=== PATIENT | female | born 1965 | race African-American/Black ===

== ENCOUNTER 2024-09-27 09:50 | Outpatient (AMB) | payer OTHER, SELFPAY ==
--- NOTE | 2024-09-27 10:12 | HO.SPINEOV ---
Vital Signs 09/27/24 10:20 Height 5 ft 3 in Weight 161 lb BMI 28.5 Intake Visit Reasons: spinal stenosis/second opinion Intake Note: Ms. Donaldson is here today c/o severe back pain that radiates down to the toes causing numbness and tingling. 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 She is a very nice 58-year-old diabetic female presents to the office today for evaluation of a low back pain and left lower extremity radiculopathy which she states started about 6 months ago. She this followed by Dr. Aguayo at [facility] for grade 1 spondylolisthesis with severe central canal stenosis, was offered L4-5 decompression with pedicle screw fixation but the patient wanted to get another opinion as to what would be the best way to proceed. She tells me that the symptoms started 6 months ago when she was leaning forward to lift something and felt a pop. For a day or so she had back pain and then it began radiating down her left leg. The pain starts in the low back, centralized paraspinal region goes down into her left posterolateral thigh, lateral calf and into the top of her foot. She describes a diffuse numbness in her left leg. The pain is aggravated with standing walking but she is also having a lot of difficulty sleeping. She has been taking gabapentin, Tylenol, muscle relaxers for many months. She underwent physical therapy but that only made it worse. She tried a cortisone injection at [facility] but that did not give her any relief, not even briefly. The pain has gotten to a point now where it is becoming incapacitating. She also reports that she has been having pain on her left breast, getting numbness of her left hand and has been noticing her gait is been more unsteady lately. She feels as though there might be a vertigo like symptom where she is having trouble steady on her feet. No cauda equina symptoms. PMH: She is diabetic, her A1c is generally very good, she did have an episode of DKA last year related to a urinary tract infection and sepsis.of 3 C sections. Denies any history of heart disease, strokes, bleeding disorders, liver disease, kidney disease. Social hx: She does not smoke, drink or use any recreational drugs Medications: Lantus, lispro sliding scale, gabapentin, tizanidine, Tylenol, metformin Allergies: None Physical exam: She is uncomfortable, she can stand on her own and walk in the hallways, but she has unsteady with tandem gait testing. Motor exam reveals a slight weakness of her left hand as well as her left iliopsoas muscle group. Rest of her motor examination reveals full strength. She has slightly brisk reflexes in the upper extremities but no overt Henderson's sign. Absent reflexes in the lower extremities with no clonus. Imaging review: There is a lumbar MRI from September of 2023 at [facility] showing grade 1 spondylolisthesis at L4-5 with facet hypertrophy in the right L4-5 facet with severe stenosis. There are flexion-extension x-rays done at [place] that I can not see, that show no instability per the radiologist. Impression: 58-year-old female presents to the office today for evaluation of low back pain centralized in the mid low back, radiating down her left leg into her outer calf and top of her foot with numbness of her big toe which seems consistent with the L5 nerve in the severe L4-5 stenosis seen on her imaging. She has a grade 1 spondylolisthesis at that level. One confounding factor here, is that although she has had on and off back issues at times, the severity of her symptoms significantly increased about 6 months ago when she was bending forward to lift something. The MRI that I am currently looking at is dated about a year ago. Therefore I do not think we are looking at a relevant MRI in the sense that we could be missing a disc herniation or some other adjacent issue. Therefore I am going to order a new lumbar MRI to exclude new pathology. Also, I would like to get a look at the flexion-extension x-rays that I could not get loaded on the computer today from [place]. Although the radiologist reports there is no signs of instability, there can be a shift from the supine MRI to the vertical x-ray position that does demonstrate signs of instability. The other thing I think we need to check is cervical MRI to exclude myelopathy. She reports gait ataxia and has instability with tandem gait testing. This could be diabetic neuropathy, but she also reports numbness of her left hand and on my exam she has weakness of her triceps and disproportionately brisk reflexes in the upper extremities. We know diabetic reflexes can be unreliable, so I think it is the safest option just to exclude myelopathy given her reporting of the symptoms. I will order these tests at [facility] at her request and I will see her back once they are completed. Thank you for allowing us to care for your patient. The total time spent with this visit with this patient was 40 minutes reviewing history, physical exam, lumbar imaging review, and implementation of treatment plan or further diagnostic testing Honorio Claire MD,PhD [facility] Orders: Orders MR cervical spine wo con Today R26.81 - Unsteadiness on feet MR lumbar spine wo con Today M54.16 - Radiculopathy, lumbar region Coding Level of Care Code New Pt Level 4 (93026) Diagnoses Gait instability R26.81 Lumbar radiculopathy M54.16
[2024-09-27 10:20] VITALS: BMI 28.5
== END 2024-09-27 11:10 | disposition home or self-care (01) ==
PROVIDERS: PCP Internal Medicine; Referring Provider Internal Medicine; Visit Provider Physician Assistant
DX: R26.81 Unsteadiness on feet (principal); M54.16 Radiculopathy, lumbar region
CPT/HCPCS: 99204

== ENCOUNTER → 2024-09-27 09:50 | Outpatient (BNVA) | payer OTHER, SELFPAY | PROVIDERS: PCP Internal Medicine; Referring Provider Internal Medicine; Visit Provider Physician Assistant | DX: R26.81 Unsteadiness on feet (principal); M54.16 Radiculopathy, lumbar region | CPT/HCPCS: 99202 ==

== ENCOUNTER 2024-11-05 13:49 | Outpatient (AMB) | payer OTHER, SELFPAY ==
--- NOTE | 2024-11-05 14:04 | A.SPINEOV_ITS ---
Intake Visit Reasons: MRI's f/up Intake Note: Ms. Donaldson is here today to F/u on the results to her MRI. Traveling Sales Representative Required: No Allergies No Known Allergies Allergy (Verified 11/05/24 14:34) Assessment & Plan Assessment & Plan (1) Lumbar radiculopathy: Code(s): M54.16 - Radiculopathy, lumbar region Category: Medical Plan Mrs Donaldson came back in today for follow-up. Please refer to my previous note for the specifics of the problem but further just of it, she has had back pain going down her left leg and has severe stenosis at L4-5 on her MRI done at [facility] a few weeks back. We repeated that MRI because of the increase in intensity of her pain. It does not show any evidence of a herniated disc so it looks like what we are dealing with here is indeed her stenosis. I sent her for flexion-extension x-rays today because there is a grade 1 spondylolisthesis but there is no movement with flexion and extension. All the films were reviewed with Dr. Claire and he feels she would be a good candidate for left L4-5 decompression. We did discuss the fact that although back pain is a major part of her symptom presentation, we do not think there is enough indication for fusion and that we are hopeful the decompression will provide some relief for the back pain as well but the primary goal of surgery would be to improve the leg pain. We quoted success rate at 90% for the left leg pain. We have tentatively set a date for surgery for 12/23/2024 Pt was given risk and benefits of surgery including but not limited to infection, hematoma , nerve injury,durotomy, weakness,bowel/bladder injury, persistent pain, [] as well as the option to continue with conservative treatment and patient wishes to proceed with surgery. Pt is aware they should stop their motrin, aspirin 7 days prior to surgery. All questions were answered to the best of our ability. If there is anything about this patients medical history that we have overlooked or concerns you have about us proceeding with surgery we would appreciate any input you can offer. Total amount of time spent in this visit was 20 minutes in discussion of symptoms, lumbar MRI imaging results and subsequent plan of care Honorio Claire MD,PhD [facility] Orders: Orders XR lumbar spine 4V min Today M54.16 - Radiculopathy, lumbar region Coding Level of Care Code Est Pt Level 3 (91850) Diagnoses Lumbar radiculopathy M54.16
== END 2024-11-05 15:45 | disposition home or self-care (01) ==
PROVIDERS: PCP Internal Medicine; Visit Provider Physician Assistant
DX: M54.16 Radiculopathy, lumbar region (principal)
CPT/HCPCS: 99213

== ENCOUNTER 2024-11-05 13:49 | Outpatient (REF) | payer OTHER, SELFPAY ==
--- NOTE | ~2024-11-05 | XR_ITS ---
EXAMINATION: Lumbar spine 4 views. CLINICAL INDICATION: Radiculopathy lumbar region. TECHNIQUE: 4 views. FINDINGS: There is mild levoscoliosis. The lumbar lordosis is maintained normal. There is grade 1 anterolisthesis L4 on L5. There is no significant change on flexion-extension views. Rest of the vertebral alignment is normal. The vertebral heights are normal. No fracture or lytic process seen. XR/XR lumbar spine 4V min IMPRESSION: Mild levoscoliosis lumbar spine. Grade 1 anterolisthesis L4 over L5. There is no significant difference on flexion or extension views. IMPRESSION: Grade 1 anterolisthesis L4 over L5 with no significant change on flexion or extension views. Electronically signed by: Jude Cheung MD 11/05/2024 03:47 PM [place]
== END 2024-11-05 13:50 | disposition home or self-care (01) ==
LOC: HO.HOSX 13:49
PROVIDERS: PCP Internal Medicine; Visit Provider Physician Assistant
DX: M54.16 Radiculopathy, lumbar region (principal)
CPT/HCPCS: 72110; 99212

== ENCOUNTER 2024-12-23 08:44 | Day surgery (SDC) | payer OTHER, SELFPAY ==
[2024-12-03 12:19] VITALS: BP 138/65; PULSE 92; RESP 16; O2SAT 99; BMI 29.6
[2024-12-23] VITALS (19 sets, daily range): BP systolic 134–177; BP diastolic 63–90; PULSE 77–87; RESP 14–20; TEMP 36.2–37.1; O2SAT 97–100
--- NOTE | ~2024-12-23 | FL_ITS ---
EXAMINATION: FL GUIDANCE ONLY HISTORY: L4-L5 Lumbar Decompression COMPARISON: None available. TECHNIQUE: Fluoroscopy time: Less than 1 minute. Cumulative Dose: 2.18 mGy. DAP: 0.43 mGym2 Images: 1. FINDINGS: A single fluoroscopic spot film of the lumbar spine in the lateral projection demonstrates a probe directed toward the L4-5 intervertebral disc space from a posterior approach. FL/FL guidance in OR IMPRESSION: Fluoroscopy during procedure. Please see procedure report for additional information. Electronically signed by: Faustino Worrell MD 12/27/2024 07:41 AM EDT
[2024-12-23] MEDS: Gabapentin 300 MG CAPSULE PO (09:51)
[2024-12-23] MEDS: methocarbamoL 750 MG TABLET PO (09:51)
[2024-12-23] MEDS: Lactated Ringers 1,000 ML 100 ML IVCONT (09:59)
--- NOTE | 2024-12-23 10:03 | HO.ANESPROP2 ---
Documented by User: Ivania Nugent NP 12/22/24 12:38 HPI - Anesthesia Eval Consult details Narrative: 58yo F for Left L4-5 Lumbar Decompression, [facility] - completely resolved with abx No CP/SOB with aerobics exercise class 2 x weekly DM: FBS 90-120 PMFSH Active Problems Active Problems: All Active Problems Lumbar radiculopathy (Acute) Gait instability (Acute) Past Medical History Medical History Back pain Hiatal hernia Neuropathy Pancreas cyst Severe obesity (BMI 35.0-39.9) with comorbidity Onychomycosis Hallux valgus (acquired) HTN (hypertension) Microalbuminuria Diabetes Spinal stenosis at L4-L5 level Left-sided low back pain with left-sided sciatica Sacroiliitis Trochanteric bursitis of left hip Spondylolisthesis at L4-L5 level Pneumonia Family History Family history of problems with anesthesia: Yes (Mother long to wake) Surgical History Surgical History History of esophagogastroduodenoscopy (EGD) H/O colonoscopy Hx of section History of Problems with Anesthesia: No (Never had GA) Social History Social History Are you a primary ocular care technician to a significant other at home: No Do you presently have visiting nurse or other home services: No Patient Tobacco Use Status: Never used Tobacco Use of substances other than those prescribed or required for medical reasons: No Have you been hit, kicked, punched, or otherwise hurt by someone within the past year? If so, by whom?: No Are you DNR?: No Advance Directives: No Advance Directives Information Provided: Yes Advance Directives on File: No Recently lost weight without trying: No Eating poorly because of decreased appetite: No Nutrition Risks: No Nutritional Risk Patient : No : No Poor oral hygiene: No Meds Allergies Allergy/AdvReac Type Severity Reaction Status Date / Time No Known Allergies Allergy Verified 11/05/24 14:34 Home Medications ?Medication ?Instructions ?Recorded ?Confirmed ?Last Taken ?Type cholecalciferol (vitamin D3) 50 50 mcg PO DAILY 12/02/24 12/02/24 Unknown History mcg (2,000 unit) tablet (Vitamin D3) cyclobenzaprine 10 mg tablet 10 mg PO BEDTIME PRN muscle spasm 12/02/24 12/02/24 Unknown History famotidine 20 mg tablet 20 mg PO BID PRN Acid Reflux 12/02/24 12/03/24 Unknown History gabapentin 300 mg capsule 300 mg PO TID 12/02/24 12/03/24 Unknown History glucagon 0.5 mg/0.1 mL 0.5 mg subcut NEEDED diabetes 12/02/24 12/02/24 Unknown History subcutaneous auto-injector (Gvoke mellitus HypoPen 2-Pack) hydroxyzine HCl 10 mg tablet 10 mg PO Q8-10H PRN Itching 12/02/24 12/02/24 Unknown History ibuprofen 600 mg tablet 600 mg PO Q6H PRN Pain 12/02/24 12/02/24 Unknown History insulin glargine 100 unit/mL (3 12 unit subcut BEDTIME 12/02/24 12/03/24 Unknown History mL) subcutaneous pen (Lantus Solostar U-100 Insulin) insulin lispro 100 unit/mL subcut 12/02/24 Unknown History subcutaneous pen latanoprost 0.005 % eye drops 1 drp ophthalmic (eye) BEDTIME 12/02/24 12/02/24 Unknown History lidocaine 5 % topical patch 1 patch topical DAILY PRN Pain 12/02/24 12/03/24 Unknown History loratadine 10 mg tablet 10 mg PO DAILY PRN Allergy Symptoms 12/02/24 12/03/24 Unknown History losartan 25 mg tablet 25 mg PO DAILY 12/02/24 12/02/24 Unknown History meclizine 25 mg tablet 25 mg PO Q8H PRN dizziness 12/02/24 12/02/24 Unknown History metformin 1,000 mg tablet 1,000 mg PO BID 12/02/24 12/02/24 Unknown History ondansetron 4 mg disintegrating 4 mg PO Q8H PRN Nausea And Vomiting 12/02/24 12/02/24 Unknown History tablet Exam Height,Weight and Vital Signs: Height 5 ft 3 in Weight 75.75 kg Last Vital Signs Pulse 92 12/03/24 12:19 Resp 16 12/03/24 12:19 BP 138/65 12/03/24 12:19 Pulse Ox 99 12/03/24 12:19 O2 Del Method Room Air 12/03/24 12:19 Pertinent Lab Results Pertinent Lab Results: CBC and CMP from outside facility [place] (H&H mild low) Narrative Narrative: EKG 2024 NSR @ 85 Airway Mallampati Class: I TM Dist: >3cm Neck ROM: Full Loose/Missing/Broken Teeth: No Heart: RRR Lungs: CTAB Assessment and Plan Assessment Anesthesia Assessment: Anesthesia Plan Discussed and PAT Visit Final Anesthetic Review Family History of Problems with Anesthesia: Yes (Mother long to wake) History of Problems with Anesthesia: No (Never had GA) Documented by User: Mackenzie Solares DO 12/23/24 10:05 [facility] Past Medical History Medical History Back pain Hiatal hernia Neuropathy Pancreas cyst Severe obesity (BMI 35.0-39.9) with comorbidity Onychomycosis Hallux valgus (acquired) HTN (hypertension) Microalbuminuria Diabetes Spinal stenosis at L4-L5 level Left-sided low back pain with left-sided sciatica Sacroiliitis Trochanteric bursitis of left hip Spondylolisthesis at L4-L5 level Pneumonia Family History Family history of problems with anesthesia: Yes (Mother took a long time to wake up) Surgical History Surgical History History of esophagogastroduodenoscopy (EGD) H/O colonoscopy Hx of section History of Problems with Anesthesia: No Social History Social History Are you a primary ocular care technician to a significant other at home: No Do you presently have visiting nurse or other home services: No Patient Tobacco Use Status: Never used Tobacco Use of substances other than those prescribed or required for medical reasons: No Have you been hit, kicked, punched, or otherwise hurt by someone within the past year? If so, by whom?: No Are you DNR?: No Advance Directives: No Advance Directives Information Provided: Yes Advance Directives on File: No Recently lost weight without trying: No Eating poorly because of decreased appetite: No Nutrition Risks: No Nutritional Risk Patient : No : No Poor oral hygiene: No Meds Allergies Allergy/AdvReac Type Severity Reaction Status Date / Time No Known Allergies Allergy Verified 11/05/24 14:34 Home Medications ?Medication ?Instructions ?Recorded ?Confirmed ?Last Taken ?Type cholecalciferol (vitamin D3) 50 50 mcg PO DAILY 12/02/24 12/02/24 Unknown History mcg (2,000 unit) tablet (Vitamin D3) cyclobenzaprine 10 mg tablet 10 mg PO BEDTIME PRN muscle spasm 12/02/24 12/02/24 Unknown History famotidine 20 mg tablet 20 mg PO BID PRN Acid Reflux 12/02/24 12/03/24 Unknown History gabapentin 300 mg capsule 300 mg PO TID 12/02/24 12/03/24 Unknown History glucagon 0.5 mg/0.1 mL 0.5 mg subcut NEEDED diabetes 12/02/24 12/02/24 Unknown History subcutaneous auto-injector (Gvoke mellitus HypoPen 2-Pack) hydroxyzine HCl 10 mg tablet 10 mg PO Q8-10H PRN Itching 12/02/24 12/02/24 Unknown History ibuprofen 600 mg tablet 600 mg PO Q6H PRN Pain 12/02/24 12/02/24 Unknown History insulin glargine 100 unit/mL (3 12 unit subcut BEDTIME 12/02/24 12/03/24 Unknown History mL) subcutaneous pen (Lantus Solostar U-100 Insulin) insulin lispro 100 unit/mL subcut 12/02/24 Unknown History subcutaneous pen latanoprost 0.005 % eye drops 1 drp ophthalmic (eye) BEDTIME 12/02/24 12/02/24 Unknown History lidocaine 5 % topical patch 1 patch topical DAILY PRN Pain 12/02/24 12/03/24 Unknown History loratadine 10 mg tablet 10 mg PO DAILY PRN Allergy Symptoms 12/02/24 12/03/24 Unknown History losartan 25 mg tablet 25 mg PO DAILY 12/02/24 12/02/24 Unknown History meclizine 25 mg tablet 25 mg PO Q8H PRN dizziness 12/02/24 12/02/24 Unknown History metformin 1,000 mg tablet 1,000 mg PO BID 12/02/24 12/02/24 Unknown History ondansetron 4 mg disintegrating 4 mg PO Q8H PRN Nausea And Vomiting 12/02/24 12/02/24 Unknown History tablet Exam Exam Date and Time: 12/23/24 1000 Height,Weight and Vital Signs: Height 5 ft 3 in Weight 75.75 kg Last Vital Signs Pulse 92 12/03/24 12:19 Resp 16 12/03/24 12:19 BP 138/65 12/03/24 12:19 Pulse Ox 99 12/03/24 12:19 O2 Del Method Room Air 12/03/24 12:19 Vital Signs Pulse Rate 92 12/03/24 12:19 Respiratory Rate 16 12/03/24 12:19 Blood Pressure 138/65 12/03/24 12:19 Pulse Oximetry 99 12/03/24 12:19 Oxygen Delivery Method Room Air 12/03/24 12:19 Temperature 97.2 F 12/23/24 09:59 Pulse Rate 86 12/23/24 09:59 Respiratory Rate 15 12/23/24 09:59 Blood Pressure 156/84 H 12/23/24 09:59 Pulse Oximetry 98 12/23/24 09:59 Oxygen Delivery Method Room Air 12/23/24 09:59 Airway Mallampati Class: I TM Dist: >3cm Neck ROM: Full Loose/Missing/Broken Teeth: No (patient denies any loose or broken teeth) Heart: S1S2 Assessment and Plan Assessment Anesthesia Assessment: Anesthesia Plan Discussed and Chart Reviewed Final Anesthetic Review Family History of Problems with Anesthesia: Yes (Mother took a long time to wake up) History of Problems with Anesthesia: No NPO: Yes ASA Class: II Final Preanesthetic Review: No Changes in Pt Med Stat, Meds/Allgs Chart Reviewed, Consent Obtained/Reviewed and Anes Risks/Benef Reviewed Patient Risk: Low Procedure Risk: Low Anesthetic Plan Anesthetic Plan: GA and Agree w/ Assess. and Plan Disposition: Standard PACU
[2024-12-23 10:09] LABS: Glucose, Whole Blood 105 mg/dL (60-115)
--- NOTE | 2024-12-23 10:34 | MHC.SHP ---
Pre-Procedural Eval Section A - 24 Hr Update-Section A only Date of Service: 12/23/24 The patient is an INPATIENT: No Section B - Complete if H&P > 30 days Chief Complaint: Radiculopathy, lumbar region Details of Present Illness: Left leg pain Allergies: Allergies Allergy/AdvReac Type Severity Reaction Status Date / Time No Known Allergies Allergy Verified 11/05/24 14:34 Review of Systems Sugical H&P ROS: Negative: Constitution, Cardiovascular, Respiratory, Neurological, Psychiatric, Hem-Onc, Allergic/Immunologic, Gastrointestinal, Genitourinary, Musculoskeletal, Integumentary, Endocrine and Eyes/Ears/Nose/Throat Exam Surgical H&P Exam: Normal: HEENT, Normal: Heart, Normal: Lungs, Normal: Extremities, Normal: Abdomen, Normal: Skin and Normal: Neurological (Awake, alert) Plan Diagnosis/Plan: Unchanged I have reviewed the history and physical and performed a pertinent physical examination on my patient. No changes have occurred unless specified. Left L4-5 decompression Time Spent With Patient Time: Total time managing care of this patient today __5__ minutes.
--- NOTE | 2024-12-23 11:20 | W.PM.OPN ---
Operative Note Operative Note Date of Service: 12/23/24 Narrative: Preoperative Diagnosis: L4-5 spinal stenosis/lateral recess stenosis/neural foraminal stenosis Operation: L4-5 Laminotomy, Partial facetectomy and foraminotomy with use of microscope Consent Informed Consent was obtained for this operation. I have explained the nature, purpose and benefits of the operation. I have discussed the risks and benefit of the operation including possible complications or adverse events with patient/family. Alternative(s) were discussed with the patient with their relative benefits and risks as well as the consequences of not accepting the operation were included in obtaining consent. Surgeon: WILIAM MEJIA MD, PHD Procedure Assisted By: Honorio Tafoya Description of Procedure This patient is suffering from predominantly left neurogenic claudication symptoms due to L4-5 central stenosis. The patient was offered a decompression. The procedure complications were explained. The patient was consented. The patient was brought to the operating room and endotracheally intubated. The patient was turned in prone position on the Haseeb frame. Prep and drape was done followed by timeout. The Physician account management assistant provided access. A mid lumbar incision was made followed by release of the paravertebral muscle on the left side to expose the L4-5 lamina and facet joints. An intraoperative x-ray was obtained to confirm the correct level. The microscope was brought in. I took over the procedure. The high-speed drill was used to do a left L4-5 laminotomy until flavum ligament was reached. A #2 Kerrison was used to expand the laminotomy near flush to the pedicles and to include a partial facetectomy. The flavum ligament was opened and resected with a #3 Kerrison to decompress the underlying thecal sac. The flavum ligament was removed to decompress the lateral recess and the exiting L5 nerve root. Accordingly, the patient was turned contralaterally peers the spinous process was undercut and then flavum ligament was resected from the contralateral side. A long nerve hook could be easily passed along the medial side of the pedicles as a sign of adequate decompression. The microscope was removed. Hemostasis was done. The physician account management assistant close the Incision in 2 layers. Steri-Strips were used to approximate incision. An OpSite with Tegaderm was used to cover the incision. All sponge needle counts were correct. Patient was extubated and transported in stable is to recovery room. Anesthesia: General Estimated Blood Loss (ml): 20 Complications: None Duration of Surgery: Under 60 Minutes Postoperative Plan: Discharge to home
--- NOTE | 2024-12-23 11:28 | PM.DS ---
DS: Providers Provider Date of Service: 12/23/24 Date of discharge: 12/23/24 Primary care physician: Josefina Burden MD Admitting clinician: Silviano Claire DS: Diagnosis Discharge Diagnosis (1) Lumbar radiculopathy: Status: Acute DS: Summary Time Attestation Discharge Coordination Time (in mins): 4 Quality: Safe Use of Opioids Does Pt have an Active Cancer Diagnosis on the Problem List?: No Quality: Stroke Does the patient have a stroke diagnosis?: No Physical Exam Vital Signs: Vital Signs: Last Vital Signs Temp 97.2 F 12/23/24 09:59 Pulse 86 12/23/24 09:59 Resp 15 12/23/24 09:59 BP 156/84 H 12/23/24 09:59 Pulse Ox 98 12/23/24 09:59 O2 Del Method Room Air 12/23/24 09:59 BMI result Body Mass Index 29.6 DS: Data Data Completed and Pending Labs on day of discharge: Laboratory Results - last 24 hr 12/23/24 10:05 POC Glucose 105 Discharge Plan Discharge Patient Disposition: Home, Self-Care Referrals: Josefina Burden MD [Primary Care Provider] - 1 Week Discharge Medications: New oxycodone 5 mg tablet 5 mg PO Q4H PRN (Reason: pain) Qty: 20 0RF Rx Instructions: Partial Fill upon patient request. docusate sodium [Colace] 100 mg capsule 100 mg PO BID Qty: 20 0RF Continued cyclobenzaprine 10 mg tablet 10 mg PO BEDTIME PRN (Reason: muscle spasm) famotidine 20 mg tablet 20 mg PO BID PRN (Reason: Acid Reflux) gabapentin 300 mg capsule 300 mg PO TID hydroxyzine HCl 10 mg tablet 10 mg PO Q8-10H PRN (Reason: Itching) cholecalciferol (vitamin D3) [Vitamin D3] 50 mcg (2,000 unit) Tablet 50 mcg PO DAILY Gvoke HypoPen 2-Pack 0.5 mg/0.1 mL auto-injector 0.5 mg subcut NEEDED latanoprost 0.005 % drops 1 drp ophthalmic (eye) BEDTIME meclizine 25 mg tablet 25 mg PO Q8H PRN (Reason: dizziness) metformin 1,000 mg tablet 1,000 mg PO BID lidocaine 5 % adhesive patch,medicated 1 patch topical DAILY PRN (Reason: Pain) losartan 25 mg tablet 25 mg PO DAILY ibuprofen 600 mg Tablet 600 mg PO Q6H PRN (Reason: Pain) ondansetron 4 mg Tablet,Disintegrating 4 mg PO Q8H PRN (Reason: Nausea And Vomiting) loratadine 10 mg Tablet 10 mg PO DAILY PRN (Reason: Allergy Symptoms) insulin lispro 100 unit/mL insulin pen SUBCUT insulin glargine [Lantus Solostar U-100 Insulin] 100 unit/mL (3 mL) insulin pen 12 unit subcut BEDTIME Discharge Orders: Discharge Order (Routine); Ordered 12/23/24 Ordered By: Honorio Mancera Diet: Advance to usual diet Activity on Discharge: As tolerated Activity Restrictions/Additional Instructions: After your spinal surgery we ask you to observe the following restrictions/guidelines: Activity: It is normal to feel some discomfort as you increase your activity, but that will improve with time. We ask you avoid heavy lifting or acitivities that cause pain. As a general rule, 8lbs is a safe limit for lifting right after surgery. Walk as much as you feel comfortable but not to exhaustion. You will feel extra tired the first few days after surgery. Stay well hydrated. It is OK to walk up and down stairs You may return to driving when you are off narcotics (such as vicodin, oxycodone, dilaudid, etc), and you are back to normal functional capacity. If you have any concerns please check with office before driving. Return to work is specific to each patient and each surgery, so please speak with your doctor/PA at first follow up. Please bring paperwork such as FMLA at that time if you need it filled out. Medications: For optimum pain control, it is best to start with a combination of 500 mg of Tylenol every 4 hours with 600 mg of Motrin every 8 hours, and use narcotics as needed in between for breakthrough pain. We will give you a short supply of narcotics after surgery (usually one weeks worth). If you need more please call the office but do not use more than prescribed. You will need to give our office 48 hours notice if you need narcotics refilled and we do not fill narcotics on weekends or evenings. If you are on a narcotic, it is a good idea to take a stool softener such as colace or senna to avoid constipation If you take blood thinner such as aspirin, Plavix, Coumadin, Effient, Eliquis etc for conditions such as Afib, DVT, Pulmonary embolus, coronary disease, stents etc please speak with your surgeon about specific details as to when you can resume these medications. You can resume NSAIDs on post op day 1 (eg: Motrin, Naproxen, etc). Follow up: Please call the office, , after surgery to arrange a 3 week follow up for wound check. Wound Care: You may remove your dressing on the first day after surgery. ?You may ?leave open to air. Please do not remove the steri strips underneath. they will fall off on their own in one week. IT IS NORMAL FOR THE WOUND TO OOZE OR BE BLOODY FOR A FEW DAYS AFTER SURGERY. ?IF THIS HAPPENS JUST PLACE NEW DRESSING OVER IT TO AVOID STAINING CLOTHES. You may shower on post op day # 1 We ask that you do not let the water soak the wound. If it does get wet, just towel dry lightly. Please do not scrub your incision or place any type of chemical/ointment on the wound. No tub baths, pools or jacuzzis for one month. If you have any leaking or redness from your wound, or fevers, please call office Print Language: Romanian
[2024-12-23] MEDS: ceFAZolin Sodium/Dextrose,Iso 2 GM/50 ML PIGGYBACK IV (11:29)
[2024-12-23] MEDS: Acetaminophen 1,000 MG/100 ML PIGGYBACK 400 MG IV (11:40)
--- NOTE | 2024-12-23 12:24 | P.OP_ITS ---
Operative Note Operative Note Date of Service: 12/23/24 Narrative: Preoperative Diagnosis: L4-5 spinal stenosis/lateral recess stenosis/neural foraminal stenosis Operation: Left L4-5 Laminotomy, Partial facetectomy and foraminotomy with use of microscope Consent Informed Consent was obtained for this operation. I have explained the nature, purpose and benefits of the operation. I have discussed the risks and benefit of the operation including possible complications or adverse events with patient/family. Alternative(s) were discussed with the patient with their relative benefits and risks as well as the consequences of not accepting the operation were included in obtaining consent. Surgeon: WILIAM MEJIA MD, PHD Procedure Assisted By: Honorio Tafoya Description of Procedure This patient is suffering from a left lumbar radiculopathy due to L4-5 lateral recess stenosis. The patient was offered a decompression. The procedure complications were explained. The patient was consented. The patient was brought to the operating room and endotracheally intubated. The patient was turned in prone position on the Haseeb frame. Prep and drape was done followed by timeout. The Physician publisher assistant provided access. A mid lumbar incision was made followed by release of the paravertebral muscle on the left side to expose the L4-5 lamina and facet joints. An intraoperative x-ray was obtained to confirm the correct level. The microscope was brought in. I took over the procedure. The high-speed drill was used to do a L4-5 laminotomy until flavum ligament was reached. A #2 Kerrison was used to expand the laminotomy near flush to the pedicles and to include a partial facetectomy. The flavum ligament was opened and resected with a #3 Kerrison to decompress the underlying thecal sac. The flavum ligament was removed to decompress the lateral recess and the exiting L5 nerve root. A long nerve hook could be easily passed along the medial side of the pedicle as a sign of adequate decompression. The microscope was removed. Hemostasis was done. The physician publisher assistant close the Incision in 2 layers. Steri-Strips were used to approximate incision. An OpSite with Tegaderm was used to cover the incision. All sponge needle counts were correct. Patient was extubated and transported in stable is to recovery room. Anesthesia: General Estimated Blood Loss (ml): 10 Complications: None Duration of Surgery: Under 60 Minutes Postoperative Plan: Discharge to home
[2024-12-23] MEDS: oxyCODONE HCl Immed Release 5 MG TABLET PO (13:35)
[2024-12-23] MEDS: fentaNYL citrate/PF 100 MCG/2 ML VIAL 50 MCG IVPUSH (14:00)
[2024-12-23] MEDS: Haloperidol Lactate 5 MG/ML VIAL 1 MG IVPUSH (14:21)
== END 2024-12-23 16:30 | disposition home or self-care (01) ==
PROVIDERS: PCP Internal Medicine; Visit Provider Neurological Surgery
PROC: (CPT 63047; principal; 2024-12-23 11:30)
DX: M48.061 Spinal stenosis, lumbar region without neurogenic claudication (principal); M51.16 Intervertebral disc disorders with radiculopathy, lumbar region
CPT/HCPCS: 63047; 82947; J0131; J0690; J1630; J1885; J2003; J2371; J2405; J2704; J3010

== ENCOUNTER → 2024-12-23 08:44 | Outpatient (BNV) | payer OTHER, SELFPAY | PROVIDERS: PCP Internal Medicine; Visit Provider Neurological Surgery | DX: M54.16 Radiculopathy, lumbar region (principal) | CPT/HCPCS: 63047; 99499 ==

== ENCOUNTER 2025-01-13 09:18 | Outpatient (AMB) | payer OTHER, SELFPAY ==
--- NOTE | 2025-01-13 09:21 | HO.SPINEOV ---
Intake Visit Reasons: 1st post op Intake Note: Ms. Donaldson is here today for her 1st post op. Nursing Care Attendant Required: No Allergies No Known Allergies Allergy (Verified 01/13/25 09:22) Assessment & Plan Assessment & Plan (1) Lumbar radiculopathy: Code(s): M54.16 - Radiculopathy, lumbar region Category: Medical Plan Procedure: Left L4-5 Laminotomy, Partial facetectomy and foraminotomy Alfonzo is a 59 year old female who underwent Left L4-5 Laminotomy, Partial facetectomy and foraminotomy with Dr. Claire about 3 weeks ago. To recap she was initially seen in clinic for low back pain and left lower extremity radiculopathy. She was offered a left L4-5 lumbar decompression to address her radiculopathy. She is overall doing well since surgery but does still report some radicular symptoms on the left side primarily with increased activity. We discussed the postoperative healing course and I answered all questions that she had to the best of my ability. She asked several questions regarding medication management for pain, which we also discussed. No new neurological deficits. The patient ambulates well and rises from a seated position without difficulty. She is not using any assistive devices to ambulate. Her posterior incision site is still scabbed over but it is closed and well healing with no signs of drainage. I would like to follow up with Alfonzo in about 6 weeks for her 2nd postoperative visit. Christopher Claire MD,PhD [facility] Coding Level of Care Code Global (72732) Diagnoses Lumbar radiculopathy M54.16
--- OUTSIDE RECORDS SUMMARY | 2025-01-13 11:01 | XMS_ITS | Encounter Summary ---
Author Organization [facility] Address [address] [place] [address] Care Team Providers Care Design Checker Name Role Phone Karla Raymond MD Primary Care Provider U Josefina Caceres MD Primary Care Provider [phone] Cayla Traango MD Unavailable [phone] Brenda Alberto PA-C Unavailable [phone] Louis Nolan PA-C Unavailable [phone] Reason for Visit * Reason Onset Date Comments refill request 10/31/2020 Encounter Details Date Type Department Care Team Description 10/31/2020 Refill Adult Medicine B - [place] [address] [place] [address] Karla Raymond MD refill request Social History Tobacco Use Types Packs/Day Years Used Date Smoking Tobacco: Never Smokeless Tobacco: Never Alcohol Use Standard Drinks/Week Comments No 0 (1 standard drink = 0.6 oz pur e alcohol) Sex Assigned at Date Recorded Not on file Job Start Date Occupation Industry Not on file Not on file Not on file documented as of this encounter Miscellaneous Notes * Telephone Encounter - Karla Cast MD - 10/31/2020 11:52 AM EST Signed, thank you * Telephone Encounter - Melissa Rodriges C.M.A. - 10/31/2020 10:26 AM EST Lab Results Component Value Date HGBA1C 12.2 06/22/2020 MALBUR 39.2 12/03/2019 MALBCR 20.9 12/03/2019 CHOL 79 09/02/2019 LDL 26 09/02/2019 HDL 41 09/02/2019 TRIG 62 09/02/2019 GLU 346 06/22/2020 CREAT 0.85 06/22/2020 Lab Results Component Value Date NA 136 06/22/2020 K 4.0 06/22/2020 CO2 27 06/22/2020 CL 101 06/22/2020 BUN 17 06/22/2020 CREAT 0.85 06/22/2020 GLU 346 06/22/2020 CA 9.2 06/22/2020 GFR > 60 06/22/2020 DEMETRI 06/22/2020 * Telephone Encounter - Brandon Donaldson - 10/31/2020 9:00 AM EST Patient would like script to be: E-PRESCRIBED/FAXED TO PHARMACY WHEN WAS THE PATIENT'S LAST APPOINTMENT IN ADULT MEDICINE? 06/22/20 WHEN WAS THE LAST TIME THE PATIENT SAW THEIR PCP? 11/23/19 Does patient have an upcoming appointment? No-patient refused appointment, will call back to book appointment (THE MEDICATION REQUESTED IS ON THE MED LIST ABOVE) All of the medications requested were on the CURRENT MEDS list Did you check the Pharmacy information above?: YES Patient wants: 30 -day supply Is this a mail order prescription request ? NO If the refill is from a FAXED refill request what is the RX # listed on the fax? N/A Patients current insurance carrier is: No billing information found for this encounter. Insurance ID #: No Subscriber Number on File documented in this encounter Plan of Treatment Not on file documented as of this encounter Visit Diagnoses Not on filedocumented in this encounter Care Teams Design Checker Relationship Specialty Start Date End Date Karla Raymond MD PCP - General Internal Medicine 10/01/1712/17 Josefina Burden MD [address] [place] [address] PCP - General Internal Medicine 12/18/22 Cayla Tarango MD [address] [address] Specialist Neurosurgery 06/10/23 Brenda Alberto PA-C [address] [address] Specialist Neurosurgery 08/20/23 Louis Nolan PA-C [address] [address] Specialist Neurosurgery 08/20/23 documented as of this encounter
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
--- OUTSIDE RECORDS SUMMARY | 2025-01-13 11:01 | XMS_ITS | Encounter Summary ---
Author Organization [facility] Address [address] [place] [address] Care Team Providers Care Plastic Tile Setter Name Role Phone Karla Raymond MD Primary Care Provider U Josefina Caceres MD Primary Care Provider [phone] Cayla Tarango MD Unavailable [phone] Brenda Alberto PA-C Unavailable [phone] Loius Nolan PA-C Unavailable [phone] Reason for Visit * Reason Comments E-prescribe Rx Request Encounter Details Date Type Department Care Team Description 02/23/2021 Refill Adult Medicine B - [place] [address] [place] [address] Karla Raymond MD E-prescribe Rx Request Social History Tobacco Use Types Packs/Day Years Used Date Smoking Tobacco: Never Smokeless Tobacco: Never Alcohol Use Standard Drinks/Week Comments No 0 (1 standard drink = 0.6 oz pur e alcohol) Sex Assigned at Date Recorded Not on file Job Start Date Occupation Industry Not on file Not on file Not on file COVID-19 Exposure Response Date Recorded In the last month, have you been in contact with someone who was confirmed or suspected to have Coronavirus / COVID-19? No / Unsure 02/15/2021 10:08 AM EDT documented as of this encounter Miscellaneous Notes * Telephone Encounter - Nell Godinez APRN - 02/26/2021 4:46 PM EDT Please call patient Will only dispense #14, no labs since 2019 * Telephone Encounter - Holley Cobb M.A. - 02/26/2021 3:50 PM EDT Date of last office visit was 02/15/21. Lab Results Component Value Date HGBA1C 12.2 06/22/2020 MALBUR 39.2 12/03/2019 MALBCR 20.9 12/03/2019 CHOL 79 09/02/2019 LDL 26 09/02/2019 HDL 41 09/02/2019 TRIG 62 09/02/2019 GLU 346 06/22/2020 CREAT 0.85 06/22/2020 * Telephone Encounter - Jessenia Zhou - 02/26/2021 3:44 PM EDT Patient would like script to be: E-PRESCRIBED/FAXED TO PHARMACY WHEN WAS THE PATIENT'S LAST APPOINTMENT IN ADULT MEDICINE? 02/15/21 WHEN WAS THE LAST TIME THE PATIENT SAW THEIR PCP? 12/03/19 Does patient have an upcoming appointment? No (THE MEDICATION REQUESTED IS ON THE MED [...] fax? N/A Patients current insurance carrier is: Payor: COMMERCIAL INSURANCE / Plan: COMMERCIAL INSURANCE / Product Type: OTHER documented in this encounter Plan of Treatment Not on file documented as of this encounter Visit Diagnoses Not on filedocumented in this encounter Care Teams Plastic Tile Setter Relationship Specialty Start Date End Date Karla Raymond MD PCP - General Internal Medicine 10/01/1712/17 Josefina Burden MD [address] [place] [address] PCP - General Internal Medicine 12/18/22 Cayla Tarango MD [address] [address] Specialist Neurosurgery 06/10/23 Brenda Alberto PA-C [address] [address] Specialist Neurosurgery 08/20/23 Louis Nolan PA-C 175 [facility] [address] [place] [address] Specialist Neurosurgery 08/20/23 documented as of this encounter
--- OUTSIDE RECORDS SUMMARY | 2025-01-13 11:01 | XMS_ITS | Encounter Summary ---
Author Organization [facility] Address [address] [place] [address] Care Team Providers Care Blister Packing Machine Tender Name Role Phone Karla Raymond MD Primary Care Provider U Josefina Caceres MD Primary Care Provider [phone] Cayla Tarango MD Unavailable [phone] Brenda Alberto PA-C Unavailable [phone] Louis Nolan PA-C Unavailable [phone] Reason for Visit * Reason Onset Date Comments Call From Office 05/02/2021 Encounter Details Date Type Department Care Team Description 05/02/2021 Telephone Adult Medicine [facility] [address] [place] [address] Karla Raymond MD Call From Office Social History Tobacco Use Types Packs/Day Years [...] have Coronavirus / COVID-19? No / Unsure 04/30/2021 2:28 PM EDT documented as of this encounter Miscellaneous Notes * Telephone Encounter - Jessenia Zhou - 05/02/2021 10:50 AM EDT Left message for patient to call to schedule an appoitment with care team Comment:I request an evaluation in Adult Medicine ? Reason for evaluation: Elevated blood pressure at time of Derm visit ? 158/70 ? Priority: the patient should be seen 4 + weeks documented in this encounter Plan of Treatment Not on file documented as of this encounter Visit Diagnoses Not on filedocumented in this encounter Care Teams Blister Packing Machine Tender Relationship Specialty Start Date End Date Karla Raymond MD PCP - General Internal Medicine 10/01/1712/17 Josefina Burden MD [address] [place] [address] PCP - General Internal Medicine 12/18/22 Cayla Tarango MD [address] [address] Specialist Neurosurgery 06/10/23 Brenda Alberto PA-C [address] [address] Specialist Neurosurgery 08/20/23 Louis Nolan PA-C 175 [facility] [address] [place] [address] Specialist Neurosurgery 08/20/23 documented as of this encounter
--- OUTSIDE RECORDS SUMMARY | 2025-01-13 11:02 | XMS_ITS | Encounter Summary ---
Author Organization [facility] Address [address] [place] [address] Care Team Providers Care Pumping Supervisor Name Role Phone Karla Raymond MD Primary Care Provider Josefina Caceres MD Primary Care Provider [phone] Cayla Tarango MD Unavailable [phone] Brenda Alberto PA-C Unavailable [phone] oLuis Nolan PA-C Unavailable [phone] Encounter Details Date Type Department Care Team Description 11/05/2021 Orders Only Adult Medicine B - [address] [address] Karla Raymond MD Social History Tobacco Use Types Packs/Day Years Used Date Smoking Tobacco: Never Smokeless Tobacco: Never Alcohol Use Standard Drinks/Week Comments No 0 (1 standard drink = 0.6 oz pur e alcohol) Sex Assigned at Date Recorded Not on file Job Start Date Occupation Industry Not on file Not on file Not on file documented as of this encounter Plan of Treatment Not on file documented as of this encounter Visit Diagnoses Not on filedocumented in this encounter Care Teams Pumping Supervisor Relationship Specialty Start Date End Date Karla Raymond MD PCP - General Internal Medicine 10/01/1712/17 Josefina Burden MD [address] [place] [phone] PCP - General Internal Medicine 12/18/22 Cayla Tarango MD 175 [facility] [address] [place] [phone] Specialist Neurosurgery 06/10/23 Brenda Alberto PA-C [address] [address] Specialist Neurosurgery 08/20/23 Louis Nolan PA-C 175 [facility] [address] [place] [address] Specialist Neurosurgery 08/20/23 documented as of this encounter
--- OUTSIDE RECORDS SUMMARY | 2025-01-13 11:02 | XMS_ITS | Encounter Summary ---
Author Organization [facility] [place] [address] Care Team Providers Care Heavy Media Operator Name Role Phone Josefina Burden MD Primary Care Provider [phone] Encounter Details Date Type Department Care Team (Late st Contact Info) Description 12/30/2024 10:30 AM EDT Consult Adult Medicine [address] [phone] Josefina Burden MD [address] [place] [phone] Preop examination (Primary Dx); Primary hypertension; Type 2 diabetes mellitus with diabetic neuropathy, without long-term current use of insulin ([facility]) Social History Tobacco Use Types Packs/Day Years Used Date Smoking Tobacco: Never Smokeless Tobacco: Never Alcohol Use Standard Drinks/Week Comments No 0 (1 standard drink = 0.6 oz pur e alcohol) Interpersonal Safety Answer Date Record ed Physical Abuse 11/13/2024 Verbal Abuse 11/13/2024 Comments No Sex and Gender Information Value Date Recorded Sex Assigned at Female 11/13/2024 1:54 AM EST Legal Sex Female 12:08 PM EST Gender Identity Female 11/13/2024 1:54 AM EST Sexual Orientation Straight 11/13/2024 1: 54 AM EST documented as of this encounter Last Filed Vital Signs Vital Sign Reading Time Taken Comments Blood Pressure 132/80 12/30/2024 11:11 AM EDT Pulse 76 12/30/2024 10:39 AM EDT Temperature 36.3 ??C (97.4 ??F) 12/30/2024 10:39 AM E DT Respiratory Rate 14 12/30/2024 10:39 AM EDT Oxygen Saturation - - Inhaled Oxygen Concentration - - Weight 78 kg (172 lb) 12/30/2024 10:39 AM EDT Height 160 cm (5' 3 ) 12/30/2024 10:39 AM EDT Body Mass Index 30.47 12/30/2024 10:39 AM EDT documented in this encounter Functional Status * Are you deaf or do you have serious difficulty hearing? Answer Date of Assessment Author No 11/18/2024 1:46 AM Gely Pace RN * Are you blind or do you have serious difficulty seeing, even when wearing glasses? Answer Date of Assessment Author No 11/18/2024 1:46 AM Gely Pace RN * Do you have serious difficulty walking or climbing stairs? Answer Date of Assessment Author No 11/18/2024 1:46 AM Gely Pace RN * Do you have serious difficulty dressing or bathing? Answer Date of Assessment Author No 11/18/2024 1:46 AM Gely Pace RN * Because of a physical, mental, or emotional condition, do you have serious difficulty doing errandsalone such as visiting the doctor? Answer Date of Assessment Author No 11/18/2024 1:46 AM Gely Pace RN documented as of this encounter Mental Status * Because of a physical, mental, or emotional condition, do you have serious difficulty concentrating, remembering, or making decisions? (5 years old or older) Answer Entry Date Author No 11/18/2024 1:46 AM Gely Pace RN documented in this encounter Progress Notes * Josefina Burden MD - 12/30/2024 10:30 AM EDT Referring MD: No ref. provider found HPI: Ms. Donaldson is a 59 y.o. year old female who is scheduled for left cataract removal on 01/21/2025. She is here today for pre-operative consultation. Her functional status is greater than 4 METs as she can participate in chair aerobics class twice a week. She has not had problems with anesthesia or ble eding. ROS: The remainder of review of systems is noncontributory. PAST MEDICAL HISTORY: Patient Active Problem List Diagnosis Date Noted Pneumonia due to infectious organism 11/14/2024 Spondylolisthesis at L4-L5 level 08/20/2023 Trochanteric bursitis of left hip 08/20/2023 Sacroiliitis ([facility]) 06/10/2023 Left-sided low back pain with left-sided sciatica 06/04/2023 Spinal stenosis at L4-L5 level 06/04/2023 Type II or unspecified type diabetes mellitus with neurological manifestations, uncontrolled(250.62) ([facility]) 04/09/2022 Microalbuminuria 02/15/2020 HTN (hypertension) 01/10/2017 Hallux valgus, acquired, bilateral 06/19/2016 Onychomycosis 06/19/2016 Severe obesity (BMI 35.0-39.9) with comorbidity ([facility]) 07/20/2012 Type 2 diabetes mellitus with diabetic neuropathy, without long-term current use of insulin ([facility]) 02/26/2010 Pancreas cyst 01/29/2008 SOCIAL HISTORY: Social History Tobacco Use Smoking status: Never Smokeless tobacco: Never Substance Use Topics Alcohol use: No FAMILY HISTORY: Family Status Relation Name Status Mother Alive Neg Hx (Not Specified) Father bite infection in broadus Sister Alive Sister Alive Brother Alive Brother suicide Daughter Tram Alive Daughter Yarely Alive Son Pieter Alive No partnership data on file Family History Problem Relation Name Age of Onset Diabetes Mother Breast cancer Neg Hx Ovarian cancer Neg Hx Colon cancer Neg Hx ACTIVE MEDICATIONS: Outpatient Medications Marked as Taking for the 12/30/24 encounter (Consult) with Josefina Burden MD Medication Sig Dispense Refill alcohol swabs pads, medicated Apply topically 4 (four) times a day. 300 each 2 blood sugar diagnostic (FreeStyle Lite Strips) test strip Use to check blood sugar 3 times daily blood-glucose meter (BLOOD GLUCOSE MONITORING [facility]) Use to check blood sugar once daily blood-glucose meter kit 1 Units by Does not apply route daily. Use to check blood sugar daily cholecalciferol (VITAMIN D-3) 50 mcg (2,000 unit) capsule Take 1 capsule (2,000 Units total) by mouth 1 (one) time each day. 90 capsule 1 cyclobenzaprine (FLEXERIL) 10 mg tablet Take 1 tablet (10 mg total) by mouth at bedtime as needed for muscle spasms. 30 tablet 0 docusate sodium (COLACE) 100 mg capsule famotidine (PEPCID) 20 mg tablet Take 1 tablet (20 mg total) by mouth 2 (two) times a day. FREESTYLE LANCETS MISC Use to check blood sugar 3 times daily gabapentin (NEURONTIN) 300 mg capsule Take 1 capsule (300 mg total) by mouth 3 (three) times a day.90 capsule 2 glucagon (Gvoke HypoPen 2-Pack) 0.5 mg/0.1 mL auto-injector Inject 0.5 mg under the skin if needed (low blood sugar). 2 each 5 hydrOXYzine HCL (ATARAX) 10 mg tablet Take 1 Tablet by mouth every 8 hours as needed for Itching. IBU 600 mg tablet Take 1 tablet (600 mg total) by mouth every 6 (six) hours. insulin glargine (LANTUS SoloStar) 100 unit/mL (3 mL) injection pen INJECT 12 UNITS UNDER THE SKIN AT BEDTIME insulin lispro (HumaLOG KwikPen Insulin) 100 unit/mL injection pen Inject 3 times a day with meals per scale 200 to 249 2 units ;250 to 299 4 units; 300 to 349 6 units; 350 to 400 8 units; Above 400 Call MD 15 mL 5 latanoprost (XALATAN) 0.005 % ophthalmic solution Administer 1 drop into both eyes at bedtime. lidocaine (LIDODERM) 5 % patch APPLY 1 PATCH ONCE DAILY loratadine (CLARITIN) 10 mg tablet Take 1 tablet (10 mg total) by mouth 1 (one) time each day. 90 each 1 losartan (COZAAR) 25 mg tablet Take 1 tablet (25 mg total) by mouth 1 (one) time each day. meclizine (ANTIVERT) 25 mg tablet Take 1 Tablet by mouth every 8 hours as needed (dizziness/vertigo). Medication may cause drowsiness, do not drive/operate machinery while taking metFORMIN (GLUCOPHAGE) 1,000 mg tablet TAKE ONE TABLET BY MOUTH TWICE A DAY WITH MEALS 180 tablet 1 oxyCODONE (ROXICODONE) 5 mg immediate release tablet pen needle, diabetic (BD Ultra-Fine Bhavana Pen Needle) 32 gauge x 5/32 needle USE TO INJECT INSULIN FOUR TIMES A DAY ALLERGIES: Patient has no known allergies. PHYSICAL EXAM: Blood pressure 132/80, pulse 76, temperature 36.3 ??C (97.4 ??F), temperature source Temporal, resp. rate 14, height 1.6 m (63 ), weight 78 kg (172 lb). Body mass index is 30.47 kg/m??. APPEARANCE: Alert and in no acute distress EYES: PERRLA, conjunctiva and sclera normal HEART: RRR with normal S1 and S2, no murmurs, no gallops, no JVD appreciated LUNG: clear to auscultation bilaterally EXTREMITIES: Extremities warm and well perfused without clubbing, cyanosis, or edema NEURO: Awake, alert and oriented x 3 and Normal gait LABS: Lab Results Component Value Date WBC 3.9 (L) 11/17/2024 HGB 10.4 (L) 11/17/2024 HCT 30.9 (L) 11/17/2024 MCV 71.9 (L) 11/17/2024 Lab Results Component Value Date NA 138 11/17/2024 K 4.0 11/17/2024 CO2 27 11/17/2024 CL 106 11/17/2024 BUN 22 11/17/2024 No results found for: INR , PTT Testing:acceptable EKG: normal EKG, normal sinus rhythm, unchanged from previous tracings. ASSESSMENT AND PLAN: 1. Preop examination 2. Primary hypertension 3. Type 2 diabetes mellitus with diabetic neuropathy, without long-term current use of insulin ([facility]) Cardiac - [facility] clinical risk factors include diabetes mellitus and female is scheduled for a low risk procedure. Her functional capacity is estimated to be greater than 4 METs. She is, therefore, estimated to have an acceptablerisk for the proposed procedure. Further cardiac workup is not warranted. Beta blockade perioperatively is not needed. Pulmonary - Her pulmonary risk factors include age > 50. Early ambulation and use of incentive spirometry, when appropriate, are encouraged. Medications - Lantus dose should be reduced by 50% on the night prior to the procedure. NSAIDs (ibuprofen) should be discontinued at least 3 days before surgery. Patient complete blood work today, results are pending. Blood work resulted, hemoglobin 9.4 which is stable compared to previous values, creatinine 0.96, hemoglobin A1c well-controlled at 6.3 Please do not hesitate to contact me with any questions or concerns. Thank you for the courtesy of this consultation. Josefina Burden MD on 12/30/2024 at 11:16 AM EDT cc: No ref. provider found documented in this encounter Plan of Treatment Upcoming Encounters Date Type Department Care Team (Late st Contact Info) Description 01/27/2025 2:30 PM EDT Office Visit Obstetrics and Gynecology - [address] [phone] Kim Young CNM [address] [place] [address] 04/06/2025 8:00 AM EDT Office Visit Adult Medicine [place] - [address] [phone] Aurelia Corley PA [address] [place] [address] 04/19/2025 7:40 AM EDT Appointment Radiology Department - [address] [phone] 04/19/2025 11:00 AM EDT Office Visit Urogynecology - [address] [phone] Rose Petersen MD [address] [place] [address] [address] [place] [address] 07/08/2025 8:45 AM EDT Office Visit Endocrinology - [address] [phone] Cayla Mendoza PA [address] [place] [address] Scheduled Orders Name Type Priority Associated Diagnoses Orde r Schedule ECG 12 lead ECG Routine Preop examination 1 Occurrences starting 12/30/2024 until 12/30/2025 documented as of this encounter Visit Diagnoses Diagnosis Preop examination- Primary Unspecified pre-operative examination Primary hypertension Unspecified essential hypertension Type 2 diabetes mellitus with diabetic neuropathy, without long-term current use of insulin ([facility]) Encounter for screening mammogram for breast cancer documented in this encounter Historical Medications * This list may reflect changes made after this encounter. Medication Sig Dispense Quantity Refills Last Filled Start D ate End Date oxyCODONE (ROXICODONE) 5 mg immediate release tablet 12/23/2024 docusate sodium (COLACE) 100 mg capsule 12/23/2024 added in this encounter Care Teams Heavy Media Operator Relationship Specialty Start Date End Date Josefina Burden MD [address] [place] [address] PCP - General Internal Medicine 12/18/22 documented as of this encounter
--- OUTSIDE RECORDS SUMMARY | 2025-01-13 11:02 | XMS_ITS | Encounter Summary ---
Author Organization [facility] Address [address] [place] [address] Care Team Providers Care Chief Green Officer Name Role Phone Karla Raymond MD Primary Care Provider U Josefina Caceres MD Primary Care Provider [phone] Cayla Tarango MD Unavailable [phone] Brenda Alberto PA-C Unavailable [phone] Louis Nolan PA-C Unavailable [phone] Reason for Referral * Non YOHANA (Routine) - Unable to reach/declined Specialty Diagnoses / Procedures Referred By Loulou ibrahim Referred To Contact Internal Medicine / Adult Med Diagnoses Type 2 diabetes mellitus with microalbuminuria, without long-term current use of insulin (HCC) Type 2 diabetes mellitus, uncontrolled, with neuropathy Procedures REFERRAL TO PHARMACY CLINIC Moises Bear PA-C [address] [place] [address] [facility] [address] [place] [address] Referral ID Status Reason Start Date Expiration Date V isits Requested Visits Authorized [id number] Unable to reach/declin ed 05/10/2022 1 1 Reason for Visit * Reason Onset Date Comments REFERRAL 05/10/20[facility] Encounter Details Date Type Department Care Team Description 05/10/2022 Telephone Respiratory and Diabetes Medicaid/ACO Pharmacist [address] [place] [phone] Fidelina Sterling Pharm.D [address] [place] [address] REFERRAL (referral to pharmacy clinic for diabetes management) Social History Tobacco Use Types Packs/Day Years [...] encounter Miscellaneous Notes * Telephone Encounter - Moises Bear PA-C - 05/10/2022 5:51 PM EDT Yes I think this would be appropriate. * Telephone Encounter - Pharm. EdwardD - 05/10/2022 12:40 PM EDT Garry De Leon, Do you think this patient would benefit from more diabetes education and medication management? If so, I've pended a referral. Thank you for your time, Fidelina Lange PharmD., [facility] Clinical Pharmacist [facility] [email or web address] Office: Wednesdays [phone], Fridays x [phone], (other days) documented in this encounter Plan of Treatment Not on file documented as of this encounter Visit Diagnoses Diagnosis Type 2 diabetes mellitus with microalbuminuria, without long-term current use of insulin (HCC)- Primary Type 2 diabetes mellitus, uncontrolled, with neuropathy Type II or unspecified type diabetes mellitus with neurological manifestations, uncontrolled documented in this encounter Care Teams Chief Green Officer Relationship Specialty Start Date End Date Karla Raymond MD PCP - General Internal Medicine 10/01/1712/17 Josefina Burden MD [address] [place] [address] PCP - General Internal Medicine 12/18/22 Cayla Tarango MD [address] [address] Specialist Neurosurgery 06/10/23 Brenda Alberto PA-C [address] [address] Specialist Neurosurgery 08/20/23 Louis Nolan PA-C [address] [address] Specialist Neurosurgery 08/20/23 documented as of this encounter
--- OUTSIDE RECORDS SUMMARY | 2025-01-13 11:02 | XMS_ITS | Encounter Summary ---
Author Organization [place] [address] Care Team Providers Care Auger Supervisor Name Role Phone Josefina Burden MD Primary Care Provider [phone] Encounter Details Date Type Department Care Team ([facility] st Contact Info) Description 11/16/2024 Telephone Adult Medicine [address] [phone] Josefina Burden MD [address] [place] [phone] Social History Tobacco Use Types Packs/Day Years Used Date Smoking Tobacco: Never Smokeless Tobacco: Never Alcohol Use Standard Drinks/Week Comments No 0 (1 standard drink = 0.6 oz pur e alcohol) Interpersonal Safety Answer Date Record ed Physical Abuse 11/13/2024 Verbal Abuse 11/13/2024 Comments Unknown Sex and Gender Information Value Date Recorded Sex Assigned at Female 11/13/2024 1:54 AM EST Legal Sex Female 12:08 PM EST Gender Identity Female 11/13/2024 1:54 AM EST Sexual Orientation Straight 11/13/2024 1: 54 AM EST documented as of this encounter Progress Notes * Anna Carbajal MA - 11/17/2024 4:24 PM EST Called pt, she is actually on her way back to er as she is feeling worse, she has been advised to notify provider of this situation and have them send another antibiotic or generic etc over for her if need be . We will follow up on 11/25 in office * Anna Carbajal MA - 11/17/2024 4:21 PM EST Sharita from [facility] called back and will relay this message to medical recruiter * Anna Carbajal MA - 11/17/2024 3:52 PM EST Call to pharmacy x 2 hung up on x 2 Call to Emergency room x 2 . As patient was admitted, the prescriber is a in house provider, I was transferred to med surg desktop support consultant at [phone] was in room 508 Spoke to Nell, This provider is off this week-no available pool to send to Nell will contact finger assembler Fany Melvin to review * Tram Barillas - 11/17/2024 8:55 AM EST Patient is calling on the status of prescription and is asking for a return call juan * Anna Carbajal MA - 11/16/2024 1:43 PM EST Ext [phone] * Anna Carbajal MA - 11/16/2024 1:41 PM EST I have spoken with the emergency room as rx came from er provider, Patient pharmacy currently closed for lunch, Advised if a covering provider could resend generic rx for patient to pharmacy (Dr Burden did not prescribe this med (she is also out of office) They will callback if issues * Dinorah Coburn RN - 11/16/2024 10:37 AM EST Pt was seen at [facility] and sent home with doxycycline for pneumonia, because the hospitalist wrote for name brand ( Doryx) and wrote for enteric coated tabs , is needs a prior Auth, Can this be changed to generic doxy which would be covered without PA ? * Fidelina Beard - 11/16/2024 10:23 AM EST Patient call requires triage: Symptoms patient is presenting: patient is calling stating she was seen at [facility] on 11/13/24. Whileat Er, they wrote a script to of heavy antibiotics. Patient went to pharmacy to fill and was told medication is not covered. Patient is asking if care team can write new script with any other medication that is covered. Was seen for multi issues at [facility]. (Script is not on list) How long has patient had these symptoms?: 11/13/2024 For ALL patients calling to schedule any appointment (routine, sick visit, follow up, consult, etc.) in the outpatient setting please ask the following questions: Do you have fever of higher than 101, sore throat with difficulty swallowing or severe shortness ofbreath? no If YES to any of these above symptoms, send a message to triage and do not book. Red dot. If no, an audio or video visit should be booked. Have you had close contact with someone with Coronavirus in the last 14 days? no Have you traveled abroad? no Have you traveled recently to another state outside of [place], [place], [place], [place], [place], [place], [place]? no o If yes, did you quarantine for 14 days or have a negative covid test? no If yes to any of the above, patient is not to be scheduled in office until after 14 day quarantine or negative covid test. If pain or injury related was it due to an accident at work or from a motor vehicle accident? If yes, date of accident/Injury: No If yes, gather 3rd democrat insurance information Third Green Party Information: not applicable PCP: Josefina Burden MD Payor: [facility] / Plan: [facility] MEDICAID / Product Type: *No Product type* / documented in this encounter Plan of Treatment Upcoming Encounters Date Type Department Care Team (Late st Contact Info) Description 01/27/2025 2:30 PM EDT Office Visit Obstetrics and Gynecology - [address] [phone] Hector KimMORALES [address] [place] [address] 04/06/2025 8:00 AM EDT Office Visit [place] Medicine [place] - [address] [phone] Aurelia Corley PA [address] [place] [address] 04/19/2025 7:40 AM EDT Appointment Radiology Department - [address] [phone] 04/19/2025 11:00 AM EDT Office Visit Urogynecology - [address] [phone] Rose Petersen MD [address] [place] [address] [address] [place] [address] 07/08/2025 8:45 AM EDT Office Visit Endocrinology - [address] [phone] Cayla Mendoza PA [address] [place] [address] documented as of this encounter Visit Diagnoses Diagnosis Pneumonia due to infectious organism, unspecified laterality, unspecified part of lung Encounter for screening mammogram for breast cancer documented in this encounter Additional Health Concerns Infection Onset Date Last Indicated Resolved Time Influenza 11/13/2024 11/13/2024 12/07/2024 7:07 PM EST documented as of this encounter Care Teams Auger Supervisor Relationship Specialty Start Date End Date Josefina Burden MD [address] [place] [address] PCP - General Internal Medicine 12/18/22 documented as of this encounter
--- OUTSIDE RECORDS SUMMARY | 2025-01-13 11:02 | XMS_ITS | Encounter Summary ---
Author Organization [facility] Address [address] [place] [address] Care Team Providers Care Refrigeration Specialist Name Role Phone Josefina Burden MD Primary Care Provider [phone] Cayla Tarango MD Unavailable [phone] Brenda Alberto PA-C Unavailable Louis Nolan PA-C Unavailable [phone] Encounter Details Date Type Department Care Team Description 04/06/2024 Refill Triage [address] [place], [place] [phone] Josefina Burden MD [address] [place] [address] [phone] Social History Tobacco Use Types Packs/Day Years [...] on filedocumented in this encounter Care Teams Refrigeration Specialist Relationship Specialty Start Date End Date Josefina Burden MD [address] [place] [address] [phone] PCP - General Internal Medicine 12/18/22 Cayla Tarango MD [address] [phone] Specialist Neurosurgery 06/10/23 Brenda Alberto PA-C [address] [address] Specialist Neurosurgery 08/20/23 Louis Nolan PA-C [address] [address] Specialist Neurosurgery 08/20/23 documented as of this encounter
--- OUTSIDE RECORDS SUMMARY | 2025-01-13 11:02 | XMS_ITS | Encounter Summary ---
Author Organization [facility] [place] [address] Care Team Providers Care Promotions Intern Name Role Phone Josefina Burden MD Primary Care Provider [phone] Reason for Visit * Reason Comments Diabetes Encounter Details Date Type Department Care Team ([facility] st Contact Info) Description 01/05/2025 9:30 AM EDT Office Visit Endocrinology [address] [phone] Cayla Mendoza PA [address] [place] [address] Type 2 diabetes mellitus with diabetic neuropathy, without long-term current use of insulin ([facility]) (Primary Dx); Secondary hypertension Social History Tobacco Use Types Packs/Day Years Used Date Smoking Tobacco: Never Smokeless Tobacco: Never Tobacco Cessation:Counseling Given: Not Answered Alcohol Use Standard Drinks/Week Comments No 0 [...] Sign Reading Time Taken Comments Blood Pressure 132/64 01/05/2025 9:31 AM EDT C Pulse 90 01/05/2025 9:31 AM EDT Temperature 36.2 ??C (97.2 ??F) 01/05/2025 9:31 AM ED T Respiratory Rate - - Oxygen Saturation 99% 01/05/2025 9:31 AM EDT Inhaled Oxygen Concentration - - Weight 78.8 kg (173 lb 12.8 oz) 01/05/2025 9:31 AM EDT Height 160 cm (5' 3 ) 01/05/2025 9:31 AM EDT Body Mass Index 30.79 01/05/2025 9:31 AM EDT documented in this encounter Functional [...] Gely Pace RN documented in this encounter Ordered Prescriptions Prescription Sig Dispense Quantity Refills Last Filled Start Date End Date insulin glargine (LANTUS SoloStar) 100 unit/mL (3 mL) injection pen Inject 8 Units under the skin at bedtime. 15 mL 3 01/05/2025 documented in this encounter Progress Notes * Eliazbeth Vides MA - 01/05/2025 9:30 AM EDT FSBS - 102 - Non fasting * DEVAN Gomez - 01/05/2025 9:30 AM EDT CHIEF COMPLAINT: Diabetes IDENTIFIER: Alfonzo Donaldson is a 59 y.o. old female. HPI: Patient presents to the office to follow up for diabetes. Past medical history of type 2 diabetes, spinal stenosis, obesity, hypertension and pancreatic cyst. Diabetes: Hemoglobin A1c: Lab Results Component Value Date HGBA1C 6.3 12/30/2024 HGBA1C 5.6 09/13/2024 HGBA1C 6.4 04/30/2024 History of DKA Blood sugars have improved significantly A1c is at goal. Blood sugar in the office 102 States blood sugar readings at home between 59 and 114. She does treat hypoglycemia with fast acting glucose She is up-to-date on her eye exam. Goes to [facility]. States she is having left eye cataractsurgery Current diabetic medications include Metformin 1000 mg twice a day Lantus 12 units. Decreased from 20 due to hypoglycemia Humalog 3 times daily per scale if sugars above 200. States she has not needed this recently Hypertension: 132/64. On losartan 25 mg, lisinopril 10 mg Wt Readings from Last 3 Encounters: 01/05/25 78.8 kg (173 lb 12.8 oz) 01/04/25 78.5 kg (173 lb) 12/30/24 78 kg (172 lb) ROS: GENERAL: No malaise, significant weight loss or fever HEENT: No changes in hearing or vision, nose bleeds or other nasal problems RESPIRATORY: No cough, wheezing or shortness of breath CARDIOVASCULAR: No chest pain, leg swelling or palpitations GI: No abdominal discomfort, blood in stools or black stools ENDOCRINE: See HPI MUSCULOSKELETAL: No joint pain or swelling, back pain, or muscle pain. NEURO: No persistent headache, syncope, seizures, weakness or numbness PAST MEDICAL HISTORY: Patient Active Problem List Diagnosis Date Noted Pneumonia due to infectious organism 11/14/2024 Spondylolisthesis at L4-L5 level 08/20/2023 Trochanteric bursitis of left hip 08/20/2023 Sacroiliitis (CMS/HCC) 06/10/2023 Left-sided low back pain with left-sided sciatica 06/04/2023 Spinal stenosis at L4-L5 level 06/04/2023 Type II or unspecified type diabetes mellitus with neurological manifestations, uncontrolled(250.62) ([facility]) 04/09/2022 Microalbuminuria 02/15/2020 HTN (hypertension) 01/10/2017 Hallux valgus, acquired, bilateral 06/19/2016 Onychomycosis 06/19/2016 Severe obesity (BMI 35.0-39.9) with comorbidity ([facility]) 07/20/2012 Type 2 diabetes mellitus with diabetic neuropathy, without long-term current use of insulin ([facility]) 02/26/2010 Pancreas cyst 01/29/2008 SOCIAL HISTORY: Social History Tobacco Use Smoking status: Never Smokeless tobacco: Never Substance Use Topics Alcohol use: No FAMILY HISTORY: Family Status Relation Name Status Mother Alive Neg Hx (Not Specified) Father bite infection in [place] Sister Alive Sister Alive Brother Alive Brother suicide Daughter Tram Alive Daughter Yarely Alive Son Pieter Alive No partnership data on file Family History Problem Relation Name Age of Onset Diabetes Mother Breast cancer Neg Hx Ovarian cancer Neg Hx Colon cancer Neg Hx ACTIVE MEDICATIONS: Outpatient Medications Marked as Taking for the 01/05/25 encounter (Office Visit) with DEVAN Gomez Medication Sig Dispense Refill alcohol swabs pads, medicated Apply topically 4 (four) times a day. 300 each 2 blood sugar diagnostic (FreeStyle Lite Strips) test strip Use to check blood sugar 3 times daily blood-glucose meter (BLOOD GLUCOSE MONIT[facility]) Use to check blood sugar once daily [...] needed for muscle spasms. 30 tablet 0 diclofenac (VOLTAREN) 1 % topical gel Apply 4 g topically 2 (two) times a day. 100 g 0 docusate sodium (COLACE) 100 mg capsule (Patient taking differently: Take 1 capsule (100 mg total) by mouth if needed.) famotidine (PEPCID) 20 mg tablet Take 1 tablet (20 mg total) by mouth 2 (two) times a day. FREESTYLE LANCETS MIS Use to check blood sugar 3 times [...] SoloStar) 100 unit/mL (3 mL) injection pen Inject 8 Units under the skin at bedtime. 15 mL 3 insulin lispro (HumaLOG KwikPen Insulin) 100 unit/mL [...] oxyCODONE (ROXICODONE) 5 mg immediate release tablet (Patient taking differently: Take 1 tablet (5 mg total) by mouth if needed.) pen needle, diabetic (BD Ultra-Fine Bhavana Pen Needle) 32 gauge x 5/32 needle USE TO INJECT INSULIN FOUR TIMES A DAY [DISCONTINUED] insulin glargine (LANTUS SoloStar) 100 unit/mL (3 mL) injection pen INJECT 12 UNITS UNDER THE SKIN AT BEDTIME ALLERGIES: Patient has no known allergies. PHYSICAL EXAM: Blood pressure 132/64, pulse 90, temperature 36.2 ??C (97.2 ??F), temperature source Temporal, height 1.6 m (63 ), weight 78.8 kg (173 lb 12.8 oz), SpO2 99%. Body mass index is 30.79 kg/m??. BMI is 18.5 to 24.9 (within the normal range) and will be followed APPEARANCE: Alert and in no acute distress NEURO: Awake, alert and oriented x 3 LABS: Lab Results Component Value Date HGBA1C 6.3 12/30/2024 CHOL 122 12/30/2024 LDL 34 01/30/2024 HDL 69 12/30/2024 TRIG 71 12/30/2024 Lab Results Component Value Date GLUCOSE 117 (H) 12/30/2024 No results found for: TSH IMAGING: IMPRESSION: 1. Type 2 diabetes mellitus with diabetic neuropathy, without long-term current use of insulin (CMS/[facility]) 2. Secondary hypertension PLAN: Patient presents to the office for diabetes consultation 1. Diabetes: A1c at goal. She still continues with some hypoglycemia Decrease Lantus from 12 units to 8 units If she continues to have hypoglycemia episodes she is told to reach out to us for further decrease of insulin Continue with lifestyle modifications Hypoglycemia treatment plan reviewed Recheck labs and follow-up in 6 months 2. Hypertension: Blood pressure at goal All questions and concerns were addressed. Patient understands and agrees with this treatment plan.Patient was reminded to call or return to the office if any new or existing problems arise This document was made using voice recognition software. It may contain some errors in grammar or syntax Medication and lab orders: Type 2 diabetes mellitus with diabetic neuropathy, without long-term current use of insulin (CMS/HCC) (Primary) - POC glucose manually resulted Secondary hypertension Other orders - insulin glargine (LANTUS SoloStar) 100 unit/mL (3 mL) injection pen; Inject 8 Units under the skin at bedtime. Dispense: 15 mL; Refill: 3 DEVAN Gomez on 01/05/2025 at 9:56 AM EDT documented in this encounter Plan of Treatment Upcoming Encounters Date Type Department Care Team (Late st Contact Info) Description 01/27/2025 2:30 PM EDT Office Visit Obstetrics and Gynecology - [address] [phone] Kim Young CNM [address] [place] [address] 04/06/2025 8:00 AM EDT Office Visit Adult Medicine West - [address] [phone] Aurelia Corley PA [address] [place] [address] 04/19/2025 7:40 AM EDT Appointment Radiology Department - [address] [phone] 04/19/2025 11:00 AM EDT Office Visit Urogynecology - [address] [phone] Rose Petersen MD [address] [place] [address] [address] [place] [address] 07/08/2025 8:45 AM EDT Office Visit Endocrinology - [address] [phone] Cayla Mendoza PA [address] [place] [phone] documented as of this encounter Procedures Procedure Name Priority Date/Time Associated Diagnosis Comments POC GLUCOSE Routine 01/05/2025 10:12 AM EDT Type 2 diabetes mellitus with diabetic neuropathy, without long-term current use of insulin ([facility]) documented in this encounter Results * POC glucose manually resulted (01/05/2025 10:12 AM EDT) Glucose POC 102 mg/dL Comment:NON FASTING Blood Capillary blood specimen / Unknown 01/05/2025 10:12 AM EDT us Cayla HARTMAN POINT OF CARE TEST ENTER/ED IT ORDERABLES Final Result documented in this encounter Visit Diagnoses Diagnosis Type 2 diabetes mellitus with diabetic neuropathy, without long-term current use of insulin ([facility])- Primary Secondary hypertension Other secondary hypertension, unspecified Encounter for screening mammogram for breast cancer documented in this encounter Discontinued Medications Medication Sig Discontinue Reason Start Date End Da te insulin glargine (LANTUS SoloStar) 100 unit/mL (3 mL) injection pen INJECT 12 UNITS UNDER THE SKIN AT BEDTIME Reorder 04/29/2024 01/05/2025 documented as of this encounter Care Teams Promotions Intern Relationship Specialty Start Date End Date Josefina Burden MD [address] [place] [address] PCP - General Internal Medicine 12/18/22 documented as of this encounter
--- OUTSIDE RECORDS SUMMARY | 2025-01-13 11:02 | XMS_ITS | Encounter Summary ---
Author Organization [facility] Address [address] [place] [address] Care Team Providers Care Social Work Specialist Name Role Phone Josefina Torre MD Primary Care Provider Cayla Tarango MD Unavailable [phone] Brenda Alberto PA-C Unavailable [phone] Louis Nolan PA-C Unavailable Reason for Visit * Reason Onset Date Comments weight loss 03/11/2024 dizziness 03/11/2024 Encounter Details Date Type Department Care Team Description 03/11/2024 Telephone Triage [address] [place] [address] [phone] Josefina Torre MD [address] [place], [place] [phone] weight loss; dizziness Social History Tobacco Use Types Packs/Day Years [...] encounter Miscellaneous Notes * Telephone Encounter - Aurelia Corley PA-C - 03/11/2024 4:42 PM EDT No indication for endo referral at this time * Telephone Encounter - Dinorah Coburn R.N. - 03/11/2024 2:02 PM EDT Going back over 6 months weight in office has been stable 08/20 166 11/19 165 159 12/23 163 and 02/18 177 This was discussed at last visit and tammie Meneses advised pt that she did not have a weight loss Pt is arguing she has had an 80 pound weight ploss and has gone from a size 22 to a size 14 Pt is requesting to change providers, she does not want to to see martin again and she does not want to wait to see dr torre, wants to be seen by an MD . She has an appointment, with dr ruano in April. I do not have a sooner visit with dr torre, I did offer visit with tammie corley and she refused Pt is asking to se endocrine, will send to tammie corley to see if pt can be referred * Telephone Encounter - Bailey Coy - 03/11/2024 1:36 PM EDT Symptoms patient is presenting: patient states she is having dizziness and has lost 70-80 lbs in last 6mths unintentionally - states she is diabetic and take insulin daily - she is wondering if she should be referred to and L D Rn - states she keeps going to the ER and then follows up herebut nothing seems to be done - states she has seen both Dr Torre and Dai - she is aware that Dr Torre isn't in today and wonders if Dai could review this message and see what she should be doing For ALL patients calling to schedule any appointment (routine, sick visit, follow up, consult, etc.) in the outpatient setting please ask the following questions: ?? Do you have fever of higher than 101, sore throat with difficulty swallowing or severe shortnessof breath? NO If YES to any of these above symptoms, send a message to triage and do not book. Red dot. If no, an audio or video visit should be booked. ?? Have you had close contact with someone with Coronavirus in the last 14 days? NO ?? Have you traveled abroad? NO ?? Have you traveled recently to another state outside of [place], [place], [place], [place], [place], [place], [place]? NO o If yes, did you quarantine for 14 days or have a negative covid test? NO If yes to any of the above, patient is not to be scheduled in office until after 14 day quarantine or negative covid test. If pain or injury related was it due to an accident at work or from a motor vehicle accident? NO If yes, gather 3rd constitution party insurance information Date of accident/Injury: n/a How long has patient had these symptoms?: ongoing past few mths PCP: Josefina Torre Payor: [facility] FFS / Plan: [facility] [email or web address] / Product Type: MEDICAID RISK documented in this encounter Plan of Treatment Not on file documented as of this encounter Visit Diagnoses Not on filedocumented in this encounter Care Teams Social Work Specialist Relationship Specialty Start Date End Date Josefina Torre MD [address] [place] [address] PCP - General Internal Medicine 12/18/22 Cayla Tarango MD [address] [address] Specialist Neurosurgery 06/10/23 Brenda Alberto PA-C [address] [address] Specialist Neurosurgery 08/20/23 Louis Nolan PA-C [address] [facility] [address] [place] [address] Specialist Neurosurgery 08/20/23 documented as of this encounter
--- OUTSIDE RECORDS SUMMARY | 2025-01-13 11:02 | XMS_ITS | Encounter Summary ---
Author Organization [facility] Address [address] [place] [address] Care Team Providers Care Fabric Finisher Name Role Phone Surinder Sanders MD Primary Care Provider Unavail able aKrla Raymond MD Primary Care Provider U Josefina Caceres MD Primary Care Provider [phone] Cayla Tarango MD Unavailable [phone] Brenda Alberto PA-C Unavailable [phone] Louis Nolan PA-C Unavailable [phone] Reason for Visit * Reason Comments E-prescribe Rx Request Encounter Details Date Type Department Care Team Description 02/04/2016 Refill Adult Medicine - [place] [address] [place] [address] Surinder Sanders MD E-prescribe Rx Request Social History Tobacco [...] encounter Miscellaneous Notes * Telephone Encounter - Mariely Arndt M.A. - 02/05/2016 11:06 AM EDT Last office visit 03/28/15--pending appt in february Component Value Date HGBA1C 8.1 12/04/2015 MALBUR 2.8 12/04/2015 MALBCR 2.3 12/04/2015 CHOL 95 12/04/2015 LDL 43 12/04/2015 HDL 41 12/04/2015 TRIG 59 12/04/2015 GLU 159 12/04/2015 CREAT 0.8 12/04/2015 * Telephone Encounter - Jada Bonilla - 02/05/2016 9:52 AM EDT Patient would like script to be: E-PRESCRIBED/FAXED TO PHARMACY WHEN WAS THE PATIENT'S LAST APPOINTMENT IN ADULT MEDICINE? 03/28/15 WHEN WAS THE LAST TIME THE PATIENT SAW THEIR PCP? 11/16/14 Does patient have an upcoming appointment? Yes 02/21/16 (THE MEDICATION REQUESTED IS ON THE MED LIST ABOVE) All of the medications requested were on the CURRENT MEDS list Did you check the Pharmacy information above?: YES Patient wants: 30 -day supply Is this a mail order prescription request ? NO Patients current insurance carrier is: Payor: [employer] / Plan: HMO $25 [place] [address] / Product Type: HMO [id number] * Telephone Encounter - Gabrielle Catherine - 02/05/2016 9:52 AM EDT Patient would like script to be: E-PRESCRIBED/FAXED TO PHARMACY WHEN WAS THE PATIENT'S LAST APPOINTMENT IN ADULT MEDICINE? 03/28/2015 WHEN WAS THE LAST TIME THE PATIENT SAW THEIR PCP? Same as above Does patient have an upcoming appointment? Yes 02/21/2016 (THE MEDICATION REQUESTED IS ON THE MED LIST ABOVE) All of the medications requested were on the CURRENT MEDS list Did you check the Pharmacy information above?: YES Patient wants: 30 -day supply Is this a mail order prescription request ? NO Patients current insurance carrier is: Payor: [employer] / Plan: [employer] $25 [address] [address] / Product Type: [employer] [id number] documented in this encounter Plan of Treatment Not on file documented as of this encounter Visit Diagnoses Not on filedocumented in this encounter Care Teams Fabric Finisher Relationship Specialty Start Date End Date Surinder Sanders MD PCP - General 04/19/1995 09/30/17 Karla Raymond MD PCP - General Internal Medicine 10/01/1712/17 Josefina Burden MD [address] [place] [address] PCP - General Internal Medicine 12/18/22 Cayla Tarango MD [address] [address] Specialist Neurosurgery 06/10/23 Brenda Alberto PA-C [address] [address] Specialist Neurosurgery 08/20/23 Louis Nolan PA-C [address] [address] Specialist Neurosurgery 08/20/23 documented as of this encounter
--- OUTSIDE RECORDS SUMMARY | 2025-01-13 11:02 | XMS_ITS | Encounter Summary ---
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 Name Role Phone Josefina Burden MD Primary Care Provider Reason for Visit * Reason Comments Hospital Follow-up Encounter Details Date Type Department Care Team (Late st Contact Info) Description 01/04/2025 8:30 AM EDT Office Visit Adult Medicine [address] [phone] Josefina Burden MD [address] [place] [id number] Hospital discharge follow-up (Primary Dx); Spinal stenosis at L4-L5 level; S/P lumbar laminectomy; Left hip pain; Trochanteric bursitis of left hip Social History Tobacco Use Types Packs/Day Years [...] Sign Reading Time Taken Comments Blood Pressure 136/70 01/04/2025 9:15 AM EDT Pulse 76 01/04/2025 8:36 AM EDT Temperature 36.6 ??C (97.8 ??F) 01/04/2025 8:36 AM ED T Respiratory Rate 14 01/04/2025 8:36 AM EDT Oxygen Saturation - - Inhaled Oxygen Concentration - - Weight 78.5 kg (173 lb) 01/04/2025 8:36 AM EDT Height 160 cm (5' 3 ) 01/04/2025 8:36 AM EDT Body Mass Index 30.65 01/04/2025 8:36 AM EDT documented in this encounter Functional [...] Gely Pace RN documented in this encounter Patient Instructions * Attachments The following attachments cannot be sent through Care Everywhere. * Hip Bursitis (Japanese) documented in this encounter Ordered Prescriptions Prescription Sig Dispense Quantity Refills Last Filled Start Date End Date diclofenac (VOLTAREN) 1 % topical gel Apply 4 g topically 2 (two) times a day. 100 g 01/04/2025 documented in this encounter Progress Notes * Josefina Burden MD - 01/04/2025 8:30 AM EDT CHIEF COMPLAINT: Hospital Follow-up IDENTIFIER: Alfonzo Donaldson is a 59 y.o. old female. HPI: Patient is here for follow-up, patient admitted to [facility] from 12/23/2024 until 12/23/2024 for lumbar radiculopathy. Patient underwent left L4-L5 laminotomy, partial cystectomy and foraminotomy. Information was extracted from the discharge notes . The history was reviewed for accuracy and confirmed by myself. I have reconciled the current and discharge meds. Patient reports that pain located in lower back which radiates down to leg has improved, still has numbness of left leg and toes. Patient reports that she has been having left hip pain, constant in nature , worse when she lays down according to patient. She is unable to lay down on her left side. No falls or injuries. ROS: See HPI PAST MEDICAL HISTORY: Patient Active Problem List Diagnosis Date Noted Pneumonia due to infectious organism 11/14/2024 Spondylolisthesis at L4-L5 level 08/20/2023 Trochanteric bursitis of left hip 08/20/2023 Sacroiliitis (CMS/HCC) 06/10/2023 Left-sided low back pain with left-sided sciatica 06/04/2023 Spinal stenosis at L4-L5 level 06/04/2023 Type II or unspecified type diabetes mellitus with neurological manifestations, uncontrolled(250.62) (CMS/HCC) 04/09/2022 Microalbuminuria 02/15/2020 HTN (hypertension) 01/10/2017 Hallux valgus, acquired, bilateral 06/19/2016 Onychomycosis 06/19/2016 Severe obesity (BMI 35.0-39.9) with comorbidity (CMS/HCC) 07/20/2012 Type 2 diabetes mellitus with diabetic neuropathy, without long-term current use of insulin (CMS/HCC) 02/26/2010 Pancreas cyst 01/29/2008 Past Surgical History: Procedure Laterality Date SECTION PROCEDURE: UT DELIVERY ONLY; COMMENT: x3 COLONOSCOPY 2014 PROCEDURE: HISTORICAL COLONOSCOPY; COMMENT: normal ESOPHAGOGASTRODUODENOSCOPY 03/23/08 PROCEDURE: UT EGD TRANSORAL BIOPSY SINGLE/MULTIPLE; COMMENT: Small hiatal hernia, gastritis-bx: chronic gastritis, HPylori+ OTHER SURGICAL HISTORY 08/22/08 PROCEDURE: GI ENDOSCOPIC ULTRASOUND; COMMENT: mild fatty changes in the liver, slightly atrophic body /tail pancreas. No pathology. OTHER SURGICAL HISTORY PROCEDURE: UT LIG/TRNSXJ FLP TUBE ABDL/VAG APPR UNI/BI SOCIAL HISTORY: Social History Tobacco Use Smoking status: Never Smokeless tobacco: Never Substance Use Topics Alcohol use: No FAMILY HISTORY: Family History Problem Relation Name Age of Onset Diabetes Mother Breast cancer Neg Hx Ovarian cancer Neg Hx Colon cancer Neg Hx Family Status Relation Name Status Mother Alive Neg Hx (Not Specified) Father bite infection in sonoita Sister Alive Sister Alive Brother Alive Brother suicide Daughter Tram Alive Daughter Yarely Alive Son Pieter Alive No partnership data on file MEDICATIONS DISCONTINUED/REORDERED: There are no discontinued medications. ACTIVE MEDICATIONS: Outpatient Medications Marked as Taking for the 01/04/25 encounter (Office Visit) with Josefina Burden MD Medication Sig Dispense Refill alcohol swabs pads, medicated Apply topically 4 (four) times a day. 300 each 2 blood sugar diagnostic (FreeStyle Lite Strips) test strip Use to check blood sugar 3 times daily blood-glucose meter (BLOOD GLUCOSE MONITORING MISC) Use to check blood sugar once daily [...] oxyCODONE (ROXICODONE) 5 mg immediate release tablet ALLERGIES: Patient has no known allergies. PHYSICAL EXAM: Blood pressure 136/70, pulse 76, temperature 36.6 ??C (97.8 ??F), temperature source Temporal, resp. rate 14, height 1.6 m (63 ), weight 78.5 kg (173 lb). Body mass index is 30.65 kg/m??. Plan is deferred until next visit APPEARANCE: Alert and in no acute distress EYES: PERRLA, conjunctiva and sclera normal HEART: RRR with normal S1 and S2, no murmurs, no gallops, no JVD appreciated LUNG: clear to auscultation bilaterally BACK: incision well healed, no discharge , no tenderness or redness EXTREMITIES: left greater trochanter tenderness NEURO: Awake, alert and oriented x 3 and Normal gait LABS: Lab Results Component Value Date WBC 3.7 (L) 12/30/2024 HGB 9.4 (L) 12/30/2024 HCT 29.0 (L) 12/30/2024 MCV 75.5 (L) 12/30/2024 PLT 284 12/30/2024 Lab Results Component Value Date NA 139 12/30/2024 K 4.4 12/30/2024 CL 105 12/30/2024 CO2 28 12/30/2024 GLUCOSE 117 (H) 12/30/2024 BUN 26 (H) 12/30/2024 CREATININE 0.96 12/30/2024 CALCIUM 9.2 12/30/2024 PROT 7.2 12/30/2024 ALBUMIN 3.9 12/30/2024 BILITOT 0.4 12/30/2024 AST 25 12/30/2024 ALT 32 12/30/2024 MG 1.8 (L) 12/30/2024 ALKPHOS 82 12/30/2024 EGFR 67 12/30/2024 IMAGING: IMPRESSION: 1. Hospital discharge follow-up 2. Spinal stenosis at L4-L5 level 3. S/P lumbar laminectomy 4. Left hip pain 5. Trochanteric bursitis of left hip PLAN: Patient is here for follow-up, patient admitted to [facility] from 12/23/2024 until 12/23/2024 for lumbar radiculopathy. Patient underwent left L4-L5 laminotomy, partial cystectomy and foraminotomy. Patient reports that pain located in lower back which radiates down to leg has improved, still has numbness of left leg and toes.Follow up with neurosurgery next week, pain well controlled . Patient reports that she has been having left hip pain, constant in nature , worse when she lays down according to patient. She is unable to lay down on her left side. No falls or injuries. Tenderness over left greater trochanter, likely trochanteric bursitis. I have given a prescription for diclofenac gel, obtain Xray hip. Medication and lab orders: Orders Placed This Encounter Procedures XR Hip 2-3 Views Left Other orders: XR HIP 2-3 VIEWS LEFT Josefina Burden MD on 01/04/2025 at 3:14 PM EDT documented in this encounter Plan of Treatment Upcoming Encounters Date Type Department Care Team (Late st Contact Info) Description 01/27/2025 2:30 PM EDT Office Visit [facility]st[facility]s [facility] [address] [place], [place] [phone] Kim Young CNM [address] [place], [place] 04/06/2025 8:00 AM EDT Office Visit [facility] - [address] [phone] Aurelia Corley PA [address] [place] [address] 04/19/2025 7:40 AM EDT Appointment Radiology Department - [address] [phone] 04/19/2025 11:00 AM EDT Office Visit Urogynecology - [address] [phone] Rose Petersen MD [address] [place] [address] [address] [place] [address] 07/08/2025 8:45 AM EDT Office Visit Endocrinology - [address] [phone] Cayla Mendoza PA [address] [place] [address] Scheduled Orders Name Type Priority Associated Diagnoses Orde r Schedule XR Hip 2-3 Views Left Imaging Routine Left hip pain Expected: 01/04/2025, Expires: 01/04/2026 documented as of this encounter Visit Diagnoses Diagnosis Hospital discharge follow-up- Primary Other follow-up examination Spinal stenosis at L4-L5 level S/P lumbar laminectomy Left hip pain Pain in joint, pelvic region and thigh Trochanteric bursitis of left hip Encounter for screening mammogram for breast cancer documented in this encounter 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
--- OUTSIDE RECORDS SUMMARY | 2025-01-13 11:02 | XMS_ITS | Clinical Summary ---
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 Use to check blood sugar daily 4 Active blood-glucose meter (BLOOD GLUCOSE MONITORING MISC) Use to check blood sugar once daily 3 Active FREESTYLE LANCETS MISC Use to check blood sugar 3 times daily 4 Active blood sugar diagnostic (FreeStyle Lite Strips) test strip Use to check blood sugar 3 times daily 4 Active famotidine (PEPCID) 20 mg tablet Take 1 tablet (20 mg total) by mouth 2 (two) times a day. 4 Active hydrOXYzine HCL (ATARAX) 10 mg tablet Take 1 Tablet by mouth every 8 hours as needed for Itching. 4 Active lidocaine (LIDODERM) 5 % patch APPLY 1 PATCH ONCE DAILY 3 Active losartan (COZAAR) 25 mg tablet Take 1 tablet (25 mg total) by mouth 1 (one) time each day. 4 Active meclizine (ANTIVERT) 25 mg tablet Take 1 Tablet by mouth every 8 hours as needed (dizziness/kenneth tigo). Medication may cause drowsiness, do not drive/operate machinery while taking 4 Active alcohol swabs pads, medicated Apply topically 4 (four) times a day. 300 each 2 4 Active cholecalcifero l (VITAMIN D-3) 50 mcg (2,000 unit) capsule Take 1 capsule (2,000 Units total) by mouth 1 (one) time each day. 90 capsule 1 4 Active gabapentin (NEURONTIN) 300 mg capsule Take 1 capsule (300 mg total) by mouth 3 (three) times a day. 90 capsule 2 4 Active metFORMIN (GLUCOPHAGE) 1,000 mg tablet TAKE ONE TABLET BY MOUTH TWICE A DAY WITH MEALS 180 tablet 1 4 Active loratadine (CLARITIN) 10 mg tablet Take 1 tablet (10 mg total) by mouth 1 (one) time each day. 90 each 1 4 04/03/20 25 Active IBU 600 mg tablet Take 1 tablet (600 mg total) by mouth every 6 (six) hours. 4 Active latanoprost (XALATAN) 0.005 % ophthalmic solution Administer 1 drop into both eyes at bedtime. 4 Active insulin lispro (HumaLOG KwikPen Insulin) 100 unit/mL injection pen Inject 3 times a day with meals per scale 200 to 249 2 units ;250 to 299 4 units; 300 to 349 6 units; 350 to 400 8 units; Above 400 Call MD 15 mL 5 4 Active glucagon (Gvoke HypoPen 2-Pack) 0.5 mg/0.1 mL auto-injector Inject 0.5 mg under the skin if needed (low blood sugar). 2 each 5 4 Active cyclobenzaprin e (FLEXERIL) 10 mg tabletIndicati ons:Spinal stenosis at L4-L5 level Take 1 tablet (10 mg total) by mouth at bedtime as needed for muscle spasms. 30 tablet 5 Active docusate sodium (COLACE) 100 mg capsule 5 Active oxyCODONE (ROXICODONE) 5 mg immediate release tablet 5 Active diclofenac (VOLTAREN) 1 % topical gel Apply 4 g topically 2 (two) times a day. 100 g 5 Active insulin glargine (LANTUS SoloStar) 100 unit/mL (3 mL) injection pen Inject 8 Units under the skin at bedtime. 15 mL 3 5 Active insulin glargine (LANTUS SoloStar) 100 unit/mL (3 mL) injection pen INJECT 12 UNITS UNDER THE SKIN AT BEDTIME 4 01/06/20 25 Discontinu ed(Reorder ) Active Problems Problem Noted Date Diagnosed Date Pneumonia due to infectious organism 11/14/2024 Spondylolisthesis at L4-L5 level 08/20/2023 Overview (08/05/2024): Last Assessment & Plan: Patient follows up today for severe stabbing low back pain, when she last saw Dr. Tarango she had left low back pain radiating down the left leg. She states that is unchanged, she still gets pain radiating down the left anterior leg, for a year has had numbness in the left first toe, the leg feels like it wants to give out on her. More recently she started noticing numbness in the right first toe as well. Her left leg is jumpy when she is resting in bed. She has been using ice and heat daily. She has tried left hip bursa injection 09/03/2023 and left SI joint injection 12/11/2023, does not feel they helped her pain. In general her legs feel tired all the time , not specifically with walking distances. She feels walking might be a little better for her, she walks approximately 1 mile a day for exercise. Her sitting and standing tolerance is 10 to 15 minutes. Patient has had a couple medical issues since her last visit, in October she had pyelonephritis, sepsis and DKA, was in the ICU for 6 days. She has had some GI issues with abdominal pain/pain in the umbilicus, diarrhea. She has had 2 abdominal pelvic [address]s, has a stable small pancreatic cyst. She does not recall seeing GI or having GI referral appointment. She also is concerned because she has lost >50 pounds this year, feels it is related to her severe back pain. She also recently has been describing left breast pain, had recent rib x-ray that was negative. Has upcoming appointment with dermatology for generalized but significant itching without rash noted. Patient had lumbar spine MRI 05/27/2023 [facility], MRI lumbar spine September 2023 [facility], both show severe central stenosis L4-5 with DJD R >L, ligamentum flavum hypertrophy. She has grade 1 L4-5 spondylolisthesis, I had her go for flexion-extension x-rays today, I did not see any instability, official report pending. I reviewed both of patient's lumbar MRIs with her in detail on the computer, we also looked at the spine on the pelvic CTs. I reviewed patient's MRI with Dr. Tarango today as well. Ms. Donaldson has L4-5 stenosis, grade 1 spondylolisthesis, DJD, significant low back pain. Dr. Tarango states she could offer her L4-5 decompression and fusion with pedicle screw fixation. Patient prefers at this time to continue with conservative treatment options, we discussed aquatic PT, acupuncture, injections. She would like to try acupuncture, name provided. I also asked her to follow-up with her PCP regarding her GI symptoms, weight loss, possible referral to GI. I asked her to call with any concerns or questions. Trochanteric bursitis of left hip 08/20/2023 Overview (08/05/2024): Last Assessment & Plan: Ms. Donaldson describes pain from the left upper buttock into the hip, anterior thigh, groin down into her will. All of her symptoms are reproducible with palpation of the left greater trochanteric bursa. I would like to send her for a steroid injection in the bursa. She had some oral steroids in May prescribed by Dr. Tarango and while it did not help her symptoms, she was able to keep her blood sugar under control with diet. She will call us and let us know how she is doing after the injection. Sacroiliitis 06/10/2023 Overview (08/05/2024): Last Assessment & Plan: Ms. Donaldson continues to suffer with left-sided low back pain with some radiation to the left groin, anterior thigh, and will. Her pain has gotten much worse since reducing the gabapentin. She does have reproduction of her low back pain with Wilver's test, thigh thrust test, and SI joint compression test. I think she would be a good candidate for an SI joint injection we will try to arrange that once again. I also told her it was okay to go back to taking the Neurontin 300 mg 3 times daily. She will follow-up with us after the injection. Left-sided low back pain with left-sided sciatic a 06/04/2023 Overview (08/05/2024): Last Assessment & Plan: Ms. Donaldson underwent a left hip bursa injection at [facility] on 09/03/2023 without improvement. She has been on gabapentin, Tylenol and a muscle relaxer with no real relief her states that he wakes up in the middle the night to see her sitting at the side of the bed crying in pain. We discussed her lumbar spine MRI which shows stenosis at L4-5 with a small annular tear at the left foramen without nerve root compression. This may be a source of her lumbar radiculopathy but she is less tender in this location than at the SI joint and her pain seems to involve more than an L4 distribution. Spinal stenosis at L4-L5 level 06/04/2023 Overview (08/05/2024): Last Assessment & Plan: Ms. Donaldson felt that the left hip injection was quite painful and did not provide any relief. She continues to describe a stabbing left lower back pain which wraps around into her groin and down the anterior thigh to the knee.. She states that the left first and second toes are numb and her back has been hypersensitive to placing any ice or heat. She feels that she is unable to weight-bear or put pressure on her left side whether it sitting or standing. She started taking gabapentin 100 mg last year, the dose was increased to 300 mg nightly. She has not noticed a difference. On exam, seated SLR is negative, strength 5/5, sensation light touch is diminished along the left lateral calf and first and second toes. Review of her lumbar spine MRI from [place] dated 05/27/2023 shows mild disc desiccation at L4-5 with a very slight spondylolisthesis. There is splaying of the right facet capsule, a probable annular tear in the left foramen and overall, severe central stenosis from facet arthropathy. Previous lumbar spine flexion/extension x-rays did not show instability. I reviewed this in detail with Ms. Donaldson and suspect that she is symptomatic in part from the lumbar stenosis but also a radiculitis from the left-sided annular tear. We discussed options the first of which is to increase her gabapentin to a more therapeutic dose. We will start with 300 mg twice daily which can then be increased to 3 times daily as tolerated. If there is no improvement, the neck step would be a left L4 TFE after which I would consider a left L4-5 MIS decompression. She does not wish to pursue surgery at this time and would like to proceed with the steps as outlined. Type II or unspecified type diabetes mellitus with neurological manifestations, uncontrolled(250.62) 04/09/2022 Microalbuminuria 02/15/2020 HTN (hypertension) 01/10/2017 Hallux valgus, acquired, bilateral 06/19/2016 Onychomycosis 06/19/2016 Severe obesity (BMI 35.0-39.9) with comorbidity 07/20/2012 Type 2 diabetes mellitus wit h diabetic neuropathy, without long-term current use of insulin 02/26/2010 Pancreas cyst 01/29/2008 Overview (08/05/2024): [address] 12/25; The larger appears to be a lipoma ; The second is too small to differentiate . Repeat CT is ordered for 4 months from now . Pt has been ref to GI Resolved Problems Problem Noted Date Diagnosed Date Resolved Date Orthostatic hypotension 11/13/2024 01/2 03/2025 Encounters Date Type Department Care Team Description 01/05/2025 9:30 AM EDT Office Visit Endocrinology [address] [phone] Cayla Mendoza PA Type 2 diabetes mellitus with diabetic neuropathy, without long-term current use of insulin ([facility]) (Primary Dx); Secondary hypertension 01/04/2025 8:30 AM EDT Office Visit Adult Medicine [address] [phone] Josefina Burden MD Hospital discharge follow-up (Primary Dx); Spinal stenosis at L4-L5 level; S/P lumbar laminectomy; Left hip pain; Trochanteric bursitis of left hip 12/30/2024 10:30 AM EDT Consult [address] [phone] Josefina Burden MD Preop examination (Primary Dx); Primary hypertension; Type 2 diabetes mellitus with diabetic neuropathy, without long-term current use of insulin ([facility]) 11/25/2024 12:30 PM EST Office Visit [address] [phone] Josefina Burden MD Hospital discharge follow-up (Primary Dx); Spinal stenosis at L4-L5 level; Pneumonia due to infectious organism, unspecified laterality, unspecified part of lung; Type 2 diabetes mellitus with diabetic neuropathy, without long-term current use of insulin ([facility]); Hypomagnesemia; Recurrent UTI 11/18/2024 1:44 AM EST - 11/18/2024 5:34 AM [facility] [address] [place] [phone] Nausea and vomiting, unspecified vomiting type (Primary Dx) Discharge Disposition: Home or Self Care 11/16/[address] [phone] Josefina Burden MD 11/15/[address] [phone] Josefina Burden MD Hospital Follow-up 11/13/2024 1:09 AM EST - 11/14/2024 1:06 PM [facility] [address] [place] [phone] Eliseo Chow MD Flores, Carlos M, MD Seralathan, Manikandan, MD Dyspnea and respiratory abnormalities (Primary Dx); Orthostasis; Pneumonia due to infectious organism, unspecified laterality, unspecified part of lung; UTI (urinary tract infection), bacterial Discharge Disposition: Home or Self Care from Last 3 Months Immunizations Name Administration Dates Next Due Influenza Quadravalent, MDCK , 0.5ml, preservative free (Flucelvax) 6mo and older 11/19/2023 Influenza, Unspecified 08/03/2024 Moderna Covid-19 Bivalent, O riginal + Ba.1 (Non-US Tradename Spikevax Bivalent) 09/30/2022 Pneumococcal polysaccharide 23 valent (Pneumovax 23) 2yo and older 03/03/2014 Tdap Tetanus diptheria acell ular pertussis (Boostrix; Adacel) 7yo and older 03/04/2023,09/27/2011 Zoster recombinant (Shingrix) 19yo and older 09/2022 Surgical History Surgery Date Site/Laterality Comments ESOPHAGOGASTRODUODENOSCOPY 03/23/08 PROCEDURE: MO EGD TRANSORAL BIOPSY SINGLE/MULTIPLE; COMMENT: Small hiatal hernia, gastritis-bx: chronic gastritis, HPylori+ OTHER SURGICAL HISTORY 08/22/08 PROCEDURE: GI ENDOSCOPIC ULTRASOUND; COMMENT: mild fatty changes in the liver, slightly atrophic body /tail pancreas. No pathology. OTHER SURGICAL HISTORY PROCEDURE: MO LIG/TRNSXJ FLP TUBE ABDL/VAG APPR UNI/BI SECTION PROCEDURE: MO DELIVERY ONLY; COMMENT: x3 COLONOSCOPY 2014 PROCEDURE: HISTORICAL COLONOSCOPY; COMMENT: normal Medical History Medical History Date Comments Obesity 07/20/2012 DX:Obesity Diabetes mellitus type II DX:Suzy betes mellitus type II Onychomycosis 06/19/2016 DX:Onychomycosis Hallux valgus, acquired, bilateral 06/19/2016 DX:Hallux valgus, acquired, bilateral Weight loss DX:Weight loss Decreased appetite DX:Decreased appetite Bilateral upper abdominal discomfort DX:Bilateral upper abdominal discomfort Back pain DX:Back pain Family History Medical History Relation Name Comments Diabetes Mother Breast cancer Neg Hx Colon cancer Neg Hx Ovarian cancer Neg Hx Relation Name Status Comments Brother 1 Alive Brother 2 suicide Daughter 1 Tram Alive Daughter 2 Yarely Alive Father bite infection in [place] Mother Alive Sister 1 Alive Sister 2 Alive Son Pieter Alive Social History Tobacco Use Types Packs/Day Years [...] Orientation Straight 11/13/2024 1: 54 AM EST Obstetrics History Last Filed Vital Signs Vital Sign Reading Time Taken Comments Blood Pressure 132/64 01/05/2025 9:31 AM EDT C Pulse 90 01/05/2025 9:31 AM EDT Temperature 36.2 ??C (97.2 ??F) 01/05/2025 9:31 AM ED T Respiratory Rate 14 01/04/2025 8:36 AM EDT Oxygen Saturation 99% 01/05/2025 9:31 AM EDT Inhaled Oxygen Concentration - - Weight 78.8 kg (173 lb 12.8 oz) 01/05/2025 9:31 AM EDT Height 160 cm (5' 3 ) 01/05/2025 9:31 AM EDT Body Mass Index 30.79 01/05/2025 9:31 AM EDT Plan of Treatment Upcoming Encounters Date Type Department Care Team (Late st Contact Info) Description 01/27/2025 2:30 PM EDT Office Visit Obstetrics and Gynecology - [address] [phone] Kim Young CNM [address] [place] [address] 04/06/2025 8:00 AM EDT Office Visit Adult Medicine [place] - [address] [phone] Aurelia Corley PA [address] [place] [address] 04/19/2025 7:40 AM EDT Appointment Radiology Department - [address] [phone] 04/19/2025 11:00 AM EDT Office Visit Urogynecology - [place] [address] [place], [place] [phone] Rose Petersen MD [address] [facility] [address] [place] [address] 07/08/2025 8:45 AM EDT Office Visit Endocrinology - [place] [id number] [place], [place] [phone] Cayla Mendoza PA [address] [place] [address] Health Maintenance Due Date Last Done Comments Diabetes: Annual Foot Exam 12/17/1973 Pneumococcal Vaccine: 50+ Years (2 of 2 - PCV) 03/03/2015 03/03/2014 Pneumococcal Vaccine: Pediatrics (0 to 5 Years) and At-Risk Patients (6 to 64 Years) (2 of 2 - PCV) 03/03/2015 03/03/2014 Depression Screening 09/28/2022 HIV Screening 09/28/2022 Social Influencers of Health Screening 09/28/2022 Zoster Vaccines (2 of 2) 11/25/2022 09/30/2022 RSV Immunization Patients 60+ Years Old (1 - Risk 60-74 years 1-dose series) 2023 COVID-19 Vaccine ( season) 2024 09/30/2022, 10/02/2021, 01/24/2021 Diabetes: Annual Retina Eye Exam 01/26/2025 01/27/2024 Colorectal Cancer Screening: Colonoscopy 02/06/2025 02/06/2015 Diabetes: Blood Sugar Control Test (HGBA1C) 07/02/2025 12/30/2024, 09/13/2024, 04/30/2024, Additional history exists Diabetes: Annual Urine Albumin-Creatinine Ratio (uACR) 12/30/2025 12/30/2024, 05/05/2023 Diabetes: Annual GFR (Glomerular Filtration Rate) 12/30/2025 12/30/2024, 11/17/2024, 11/14/2024, Additional history exists Hypertension/CHF/CAD Annual BMP Blood Test 12/30/2025 12/30/2024, 11/17/2024, 11/14/2024, Additional history exists Breast Cancer Screening 04/09/2026 04/09/20, 04/09/2024, 03/28/2023, Additional history exists Cervical Cancer Screening: HPV 12/17/2028 2023 Cholesterol Screening (Lipid Panel) 12/30/2029 12/30/2024, 01/30/2024 DTaP,Tdap,and Td Vaccines (3 - Td or Tdap) 03/04/2033 03/04/2023, 09/27/2011 Hepatitis C Screening Completed 07/13/2013 Influenza Vaccine Completed 08/03/2024, , 08/02/2017 HIB Vaccines Aged Out No longer eligi ble based on patient's age to complete this topic HPV Vaccines Aged Out No longer eligi ble based on patient's age to complete this topic Hepatitis A Vaccines Aged Out No long er eligible based on patient's age to complete this topic Hepatitis B Vaccines Aged Out No long er eligible based on patient's age to complete this topic IPV Vaccines Aged Out No longer eligi ble based on patient's age to complete this topic MMR Vaccines Aged Out No longer eligi ble based on patient's age to complete this topic Meningococcal ACWY Vaccine Aged Out N o longer eligible based on patient's age to complete this topic Meningococcal B Vacine Aged Out No lo nger eligible based on patient's age to complete this topic RSV Immunization Patients Under 20 months Aged Out No longer eligible based on patient's age to complete this topic Varicella Vaccines Aged Out No longer eligible based on patient's age to complete this topic Procedures Procedure Name Priority Date/Time Associated Diagnosis Comments POC GLUCOSE Routine 01/05/2025 10:12 AM EDT Type 2 diabetes mellitus with diabetic neuropathy, without long-term current use of insulin (CMS/HCC) CBC WITH AUTO DIFFERENTIAL Routine 12/30/2024 10:08 AM EDT Pneumonia due to infectious organism, unspecified laterality, unspecified part of lung COMPREHENSIVE METABOLIC PANEL Routine 12/30/2024 10:08 AM EDT Type 2 diabetes mellitus with diabetic neuropathy, without long-term current use of insulin (CMS/HCC) HEMOGLOBIN A1C Routine 12/30/2024 10:08 AM EDT Type 2 diabetes mellitus with diabetic neuropathy, without long-term current use of insulin ([facility]) LIPID PANEL WITH REFLEX TO DIRECT LDL Routine 12/30/2024 10:08 AM EDT Type 2 diabetes mellitus with diabetic neuropathy, without long-term current use of insulin ([facility]) MICROALBUMIN CREATININE URINE RATIO Routine 12/30/2024 10:08 AM EDT Type 2 diabetes mellitus with diabetic neuropathy, without long-term current use of insulin ([facility]) CBC AND DIFFERENTIAL Routine 12/30/2024 10:08 AM EDT Pneumonia due to infectious organism, unspecified laterality, unspecified part of lung MAGNESIUM Routine 12/30/2024 10:08 AM EDT Hypomagnesemia ECG 12-LEAD Routine 12/30/2024 8:54 AM EDT EXTERNAL XRAY REPORT 12/23/2024 EXTERNAL XRAY REPORT 12/23/2024 XR CHEST 2 VIEWS STAT 11/18/2024 2:44 AM EST POCT GLUCOSE BLOOD Routine 11/18/2024 12 :37 AM EST ECG ANNOTATED 11/18/2024 TROPONIN I HIGH SENSITIVITY STAT 11/17/2024 7:09 PM EST ECG 12-LEAD STAT 11/17/2024 6:54 PM EST MANUAL DIFFERENTIAL - SYSMEX WAM STAT 11/17/2024 5:33 PM EST CBC WITH AUTO DIFFERENTIAL STAT 11/17/2024 5:33 PM EST TROPONIN I HIGH SENSITIVITY STAT 11/17/2024 5:33 PM EST MAGNESIUM STAT 11/17/2024 5:33 PM EST BASIC METABOLIC PANEL STAT 11/17/2024 5:33 PM EST CBC AND DIFFERENTIAL STAT 11/17/2024 5:33 PM EST ECG 12-LEAD Routine 11/17/2024 4:39 PM EST POCT GLUCOSE BLOOD Routine 11/14/2024 11 :03 AM EST POCT GLUCOSE BLOOD Routine 11/14/2024 8: 00 AM EST CBC WITH AUTO DIFFERENTIAL Routine 11/14/2024 6:13 AM EST CBC AND DIFFERENTIAL Routine 11/14/2024 6:13 AM EST MAGNESIUM Routine 11/14/2024 6:13 AM EST BASIC METABOLIC PANEL Routine 11/14/2024 6:13 AM EST POCT GLUCOSE BLOOD Routine 11/13/2024 7: 31 PM EST POCT GLUCOSE BLOOD Routine 11/13/2024 3: 59 PM EST URINALYSIS WITH REFLEX MICROSCOPIC Routine 11/13/2024 2:04 PM EST URINALYSIS WITH REFLEX MICROSCOPIC Routine 11/13/2024 2:04 PM EST CULTURE BLOOD STAT 11/13/2024 12:42 PM EST POCT GLUCOSE BLOOD Routine 11/13/2024 12 :[address] ANGIO CHEST WO AND/OR W CONTRAST Routine 11/13/2024 9:47 AM EST Dyspnea and respiratory abnormalities D-DIMER STAT 11/13/2024 6:39 AM EST XR CHEST 2 VIEWS STAT 11/13/2024 3:40 AM EST TROPONIN I HIGH SENSITIVITY STAT 11/13/2024 2:51 AM EST TAVERAS URINE CULTURE TUBE STAT 11/13/2024 2:06 AM EST URINALYSIS WITH REFLEX MICROSCOPIC AND CULTURE STAT 11/13/2024 2:06 AM EST URINALYSIS WITH REFLEX MICROSCOPIC AND CULTURE STAT 11/13/2024 2:06 AM EST CULTURE URINE STAT 11/13/2024 2:[address] CERVICAL SPINE WO CONTRAST STAT 11/13/2024 1:[address] HEAD WO CONTRAST STAT 11/13/2024 1 :58 AM EST COMPREHENSIVE METABOLIC PANEL STAT 11/13/2024 1:37 AM EST ECG 12-LEAD STAT 11/13/2024 1:36 AM EST CBC WITH AUTO DIFFERENTIAL STAT 11/13/2024 1:34 AM EST TROPONIN I HIGH SENSITIVITY STAT 11/13/2024 1:34 AM EST CBC AND DIFFERENTIAL STAT 11/13/2024 1:34 AM EST RESPIRATORY VIRUS PANEL MOLECULAR STUDY STAT 11/13/2024 1:34 AM EST ECG ANNOTATED 11/13/2024 ECG OUTSIDE 11/13/2024 SCREENING MAMMOGRAPHY BI 2-VIEW BREAST INC CAD Routine 04/09/2024 7:39 AM EDT Encounter for screening mammogram for malignant neoplasm of breast HM HPV Routine 2023 HM COLONOSCOPY Routine 02/06/2015 HM HEPATITIS C SCREENING Routine 07/13/2013 from Last 3 Months or Most Recently Relevant to Health Maintenance Results * POC glucose manually resulted (01/05/2025 10:12 AM EDT) Glucose POC 102 mg/dL Comment:NON FASTING Blood Capillary blood specimen / Unknown 01/05/2025 10:12 AM EDT us Cayla HARTMAN POINT OF CARE TEST ENTER/ED IT ORDERABLES Final Result * Lipid panel with reflex to direct LDL (12/30/2024 10:08 AM EDT) Cholesterol 122 0 - 200 mg/dL LAB CHEMISTRY METHOD 12/30/2024 12:51 PM EDT [facility] Triglycerides 71 0 - 150 mg/dL LAB CHEMISTRY METHOD 12/30/2024 12:51 PM EDT [facility] HDL 69 >=40 mg/dL LAB CHEMISTRY METHOD 12/30/2024 12:51 PM EDT [facility] LDL Calculated 39 0 - 100 mg/dL LAB CHEMISTRY METHOD 12/30/2024 12:51 PM EDT [facility] VLDL Cholesterol Yordan 14.2 mg/dL LAB CHEMISTRY METHOD 12/30/2024 12:51 PM EDT [facility] Non HDL Chol. (LDL+VLDL) 53 <145 mg/dL LAB CHEMISTRY METHOD 12/30/2024 12:51 PM EDT [facility] Chol/HDL Ratio 1.8 0.0 - 4.4 LAB CHEMISTRY METHOD 12/30/2024 12:51 PM EDT [facility] Blood Venous blood specimen / Unknown Venipuncture / Unknown 12/30/2024 10:08 AM EDT 12/30/2024 10:08 AM EDT us Josefina uBrden MD LAB BLOOD ORDERABLES Final Resul t [facility] [address] [place] [address], [place] [phone] * (ABNORMAL) CBC auto differential (12/30/2024 10:08 AM EDT) Only the most recent of4 resultswithin the time period is included. WBC 3.7(L) 4.8 - 10.8 K/mcL LAB HEMETOLOGY METHOD 12/30/2024 12:23 PM [facility] RBC 3.80 3.80 - 4.80 M/mcL LAB HEMETOLOGY METHOD 12/30/2024 12:23 PM [facility] Hemoglobin 9.4(L) 11.5 - 16.0 g/dL LAB HEMETOLOGY METHOD 12/30/2024 12:23 PM [facility] Hematocrit 29.0(L) 35.0 - 47.0 % LAB HEMETOLOGY METHOD 12/30/2024 12:23 PM [facility] MCV 75.5(L) 79.0 - 98.0 FL LAB HEMETOLOGY METHOD 12/30/2024 12:23 PM [facility] MCH 24.5(L) 27.0 - 32.0 pcg LAB HEMETOLOGY METHOD 12/30/2024 12:23 PM [facility] MCHC 32.4 32.0 - 37.0 g/dL LAB HEMETOLOGY METHOD 12/30/2024 12:23 PM [facility] RDW 15.7(H) 11.0 - 15.0 % LAB HEMETOLOGY METHOD 12/30/2024 12:23 PM [facility] Platelets 284 130 - 400 K/mcL LAB HEMETOLOGY METHOD 12/30/2024 12:23 PM [facility] MPV 9.6 7.0 - 11.0 FL LAB HEMETOLOGY METHOD 12/30/2024 12:23 PM [facility] NRBC 0.0 <1.0 % LAB HEMETOLOGY [facility] Absolute 0.00 <0.10 K/mcL LAB HEMETOLOGY METHOD 12/30/2024 12:23 PM [facility] Neutrophils Relative 39.8 % LAB HEMETOLOGY METHOD 12/30/2024 12:23 PM [facility] Lymphocytes Relative 44.1 % LAB HEMETOLOGY METHOD 12/30/2024 12:23 PM [facility] Monocytes Relative 12.3 % LAB HEMETOLOGY METHOD 12/30/2024 12:23 PM [facility] Eosinophils Relative 2.5 % LAB HEMETOLOGY METHOD 12/30/2024 12:23 PM [facility] Basophils Relative 0.8 % LAB HEMETOLOGY METHOD 12/30/2024 12:23 PM [facility] Immature Granulocytes Relative 0.5 % LAB HEMETOLOGY METHOD 12/30/2024 12:23 PM [facility] Neutrophils Absolute 1.46(L) 1.50 - 7.00 K/mcL LAB HEMETOLOGY METHOD 12/30/2024 12:23 PM [facility] Lymphocytes Absolute 1.62 1.00 - 5.00 K/mcL LAB HEMETOLOGY METHOD 12/30/2024 12:23 PM [facility] Monocytes Absolute 0.45 0.20 - 1.00 K/mcL LAB HEMETOLOGY METHOD 12/30/2024 12:23 PM [facility] Eosinophils Absolute 0.09 0.00 - 0.50 K/mcL LAB HEMETOLOGY METHOD 12/30/2024 12:23 PM [facility] Basophils Absolute 0.03 0.00 - 0.20 K/mcL LAB HEMETOLOGY METHOD 12/30/2024 12:23 PM EDT [facility] Immature Granulocytes Absolute 0.02 0.00 - 0.03 K/mcL LAB HEMETOLOGY METHOD 12/30/2024 12:23 PM EDT [facility] Blood Venous blood specimen / Unknown Venipuncture / Unknown 12/30/2024 10:08 AM EDT 12/30/2024 10:08 AM EDT Josefina Burden MD LAB BLOOD ORDERABLES Final Resul t Performing Organization Address City/[facility]/ZIP Co de Phone Number [facility] [address] [place] [address], [place] [phone] * Microalbumin creatinine urine ratio (12/30/2024 10:08 AM EDT) Creatinine, Urine 143.0 mg/dL LAB CHEMISTRY METHOD 12/30/2024 1:06 PM EDT [facility] Microalb, Ur 11.3 0.0 - 29.0 mg/L LAB CHEMISTRY METHOD 12/30/2024 1:06 PM EDT [facility] Microalb/Creat Ratio 8 <30 mg/g creat LAB CHEMISTRY METHOD 12/30/2024 1:06 PM EDT [facility] Urine Urine specimen obtained by clean catch procedure / Unknown Non-blood Collection / Unknown 12/30/2024 10:08 AM EDT 12/30/2024 10:08 AM EDT us Josefina Burden MD LAB URINE ORDERABLES Final Resul t Performing Organization Address [facility]/ZIP Co de Phone Number [facility] [address] [place] [address], [place] [phone] * (ABNORMAL) Magnesium (12/30/2024 10:08 AM EDT) Only the most recent of3 resultswithin the time period is included. Magnesium 1.8(L) 1.9 - 2.6 mg/dL LAB CHEMISTRY METHOD 12/30/2024 12:47 PM EDT [facility] Blood Venous blood specimen / Unknown Venipuncture / Unknown 12/30/2024 10:08 AM EDT 12/30/2024 10:08 AM EDT us Josefina Burden MD LAB BLOOD ORDERABLES Final Resul t Performing Organization Address City/[facility] de Phone Number [facility] [address] [place] [address], [place] [phone] * Hemoglobin A1c (12/30/2024 10:08 AM EDT) [facility] Hemoglobin A1C 6.3 <6.5 % LAB CHEMISTRY METHOD 12/30/2024 2:59 PM EDT [facility] Mean Bld Glu Estim. 134 mg/dL LAB CHEMISTRY METHOD 12/30/2024 2:59 PM EDT [facility] Blood Venous blood specimen / Unknown Venipuncture / Unknown 12/30/2024 10:08 AM EDT 12/30/2024 10:08 AM EDT us Josefina Burden MD LAB BLOOD ORDERABLES Final Resul t Performing Organization Address [facility] de Phone Number [facility] [address] [place] [address], [place] [phone] * (ABNORMAL) Comprehensive metabolic panel (12/30/2024 10:08 AM EDT) Only the most recent of2 resultswithin the time period is included. [facility] Sodium 139 133 - 145 mmol/L LAB CHEMISTRY METHOD 12/30/2024 12:51 PM EDT [facility] Potassium 4.4 3.5 - 5.5 mmol/L LAB CHEMISTRY METHOD 12/30/2024 12:51 PM EDT [facility] Chloride 105 96 - 110 mmol/L LAB CHEMISTRY METHOD 12/30/2024 12:51 PM [facility] CO2 28 21 - 32 mmol/L LAB CHEMISTRY METHOD 12/30/2024 12:51 PM [facility] Anion Gap 6 3 - 11 LAB CHEMISTRY METHOD 12/30/2024 12:51 PM [facility] Glucose 117(H) 70 - 100 mg/dL LAB CHEMISTRY METHOD 12/30/2024 12:51 PM [facility] BUN 26(H) 5 - 25 mg/dL LAB CHEMISTRY METHOD 12/30/2024 12:51 PM [facility] Creatinine 0.96 0.50 - 1.10 mg/dL LAB CHEMISTRY METHOD 12/30/2024 12:51 PM [facility] eGFR 67 >=60 mL/min/1. 73m2 LAB CHEMISTRY METHOD 12/30/2024 12:51 PM [facility] Comment:Calculation based on the??Chronic Kidney Disease Epidemiology Collaboration (CKD-EPI) equation refit??without adjustment for race. BUN/Creatinine Ratio 27.1 LAB CHEMISTRY METHOD 12/30/2024 12:51 PM [facility] Calcium 9.2 8.5 - 10.5 mg/dL LAB CHEMISTRY METHOD 12/30/2024 12:51 PM [facility] AST (SGOT) 25 10 - 42 unit/L LAB CHEMISTRY METHOD 12/30/2024 12:51 PM [facility] ALT (SGPT) 32 10 - 60 unit/L LAB CHEMISTRY METHOD 12/30/2024 12:51 PM [facility] Alkaline Phosphatase 82 42 - 121 unit/L LAB CHEMISTRY METHOD 12/30/2024 12:51 PM [facility] Total Protein 7.2 6.0 - 8.0 g/dL LAB CHEMISTRY METHOD 12/30/2024 12:51 PM [facility] Albumin 3.9 3.2 - 5.0 g/dL LAB CHEMISTRY METHOD 12/30/2024 12:51 PM EDT [facility] Total Bilirubin 0.4 0.0 - 1.4 mg/dL LAB CHEMISTRY METHOD 12/30/2024 12:51 PM EDT [facility] Blood Venous blood specimen / Unknown Venipuncture / Unknown 12/30/2024 10:08 AM EDT 12/30/2024 10:08 AM EDT Josefina Burden MD LAB BLOOD ORDERABLES Final Resul t [facility] [address] [place] [address], * ECG 12 lead (12/30/2024 8:54 AM EDT) Only the most recent of4 resultswithin the time period is included. Historical Provider ECG ORDERABLES Final Res ult * External Xray Report (12/23/2024) Only the most recent of2 resultswithin the time period is included. Anatomical Region Laterality Modality Radiographic Radha ging Provider [facility] IMG XR PROCEDURES Final Result * XR Chest 2 Views (11/18/2024 2:44 AM EST) Only the most recent of2 resultswithin the time period is included. Anatomical Region Laterality Modality Body Radiographic Radha ging 11/18/2024 8:59 AM EST Impressions 11/18/2024 9:02 AM EST FINDINGS/IMPRESSION: Lungs are clear. ??No pleural effusion or pneumothorax. ??Cardiac silhouette and bones are within normal limits. -------- FINAL REPORT -------- Dictated By: ANDRÉS BUCIO Dictated Date: 11/18/2024 08:59 ET Assigned Physician: ANDRÉS BUCIO Reviewed and Electronically Signed By: ANDRÉS BUCIO Signed Date: 11/18/2024 09:02 ET Workstation ID: [id number] Transcribed By: Self Edit Transcribed Date: 11/18/2024 08:59 ET Narrative 11/18/2024 9:02 AM EST XR CHEST 2 VIEWS INDICATION: ??Cough, shortness of breath TECHNIQUE: XR CHEST 2 VIEWS COMPARISON: None Procedure Note Andrés Bucio MD - 11/18/2024 XR CHEST 2 VIEWS INDICATION: Cough, shortness of breath TECHNIQUE: XR CHEST 2 VIEWS COMPARISON: None IMPRESSION: FINDINGS/IMPRESSION: Lungs are clear. No pleural effusion orpneumothorax. Cardiac silhouette and bones are within normal limits. -------- FINAL REPORT -------- Dictated By: ANDRÉS BUCIO Dictated Date: 11/18/2024 08:59 ET Assigned Physician: ANDRÉS BUCIO Reviewed and Electronically Signed By: ANDRÉS BUCIO Signed Date: 11/18/2024 09:02 ET Workstation ID: [id number] Transcribed By: Self Edit Transcribed Date: 11/18/2024 08:59 ET us Adamaris HARTMAN IMG XR PROCEDURES Final Result * (ABNORMAL) POCT Glucose, blood (11/18/2024 12:37 AM EST) Only the most recent of6 resultswithin the time period is included. Glucose POCT 195(H) 70 - 100 mg/dL 11/18/2024 12:38 AM EST [facility] Blood Capillary blood specimen / Unknown 11/18/2024 12:37 AM EST 11/18/2024 12:39 AM EST us Generic Provider Poct LAB POINT OF CARE TEST DOCKED DEVICE UNSOLICITED RESULTS Final Result [facility]) [facility] [address] [place] [address], [place] [phone] * ECG-Annotated (11/18/2024) Only the most recent of2 resultswithin the time period is included. Provider Onbase ECG ORDERABLES Final Result * Troponin I high sensitivity (11/17/2024 7:09 PM EST) Only the most recent of4 resultswithin the time period is included. [facility] High Sensitivity Troponin I 11 <=54 ng/L LAB CHEMISTRY METHOD 11/17/2024 7:59 PM EST [facility] Blood Venous blood specimen / Unknown Venipuncture / Unknown 11/17/2024 7:09 PM EST 11/17/2024 7:22 PM EST [facility] - 11/17/2024 7:59 PM EST High levels of biotin in samples may falsely decrease hsTroponin values. ??Use caution when interpreting hsTroponin results in patients taking biotin who exhibit renal impairment (eGFR <60) or in patients taking more than 20 mg/day of biotin. Pancho Mercer MD LAB BLOOD ORDERABLES Final Res ult [facility] [address] [place] [address], * (ABNORMAL) Manual differential (11/17/2024 5:33 PM EST) [facility] Neutrophils % 30.0 % LAB HEMETOLOGY METHOD 11/17/2024 6:20 PM [facility] Lymphocytes % 46.0 % LAB HEMETOLOGY METHOD 11/17/2024 6:20 PM [facility] Reactive Lymphocyte 13.00 % LAB HEMETOLOGY METHOD 11/17/2024 6:20 PM [facility] Monocytes % 10.0 % LAB HEMETOLOGY METHOD 11/17/2024 6:20 PM [facility] Eosinophils % 3.0 % LAB HEMETOLOGY METHOD 11/17/2024 6:20 PM [facility] Basophils % 0.0 % LAB HEMETOLOGY METHOD 11/17/2024 6:20 PM EST [facility] Neutrophils Absolute Manual 1.17(L) 1.50 - 7.00 K/mcL LAB HEMETOLOGY METHOD 11/17/2024 6:20 PM EST [facility] Lymphocytes Absolute 1.79 1.00 - 5.00 K/mcL LAB HEMETOLOGY METHOD 11/17/2024 6:20 PM EST [facility] Reactive Lymph Abs Manual 0.51(H) 0.00 - 0.00 lym LAB HEMETOLOGY METHOD 11/17/2024 6:20 PM EST [facility] Monocytes Absolute Manual 0.39 0.20 - 1.00 K/mcL LAB HEMETOLOGY METHOD 11/17/2024 6:20 PM [facility] Eosinophils Absolute Manual 0.12 0.00 - 0.50 K/mcL LAB HEMETOLOGY METHOD 11/17/2024 6:20 PM EST [facility] Basophils Absolute Manual 0.00 0.00 - 0.20 K/mcL LAB HEMETOLOGY METHOD 11/17/2024 6:20 PM EST [facility] Rbc Morphology Consistent with indices Consistent with indices, Normal for LAB HEMETOLOGY METHOD 11/17/2024 6:20 PM EST [facility] Platelet Morphology - WAM See Note(A) Normal LAB HEMETOLOGY METHOD 11/17/2024 6:20 PM EST [facility] Comment:PLT: Normal Blood Venous blood specimen / Unknown Venipuncture / Unknown 11/17/2024 5:33 PM EST 11/17/2024 5:43 PM EST Pancho Mercer MD LAB BLOOD ORDERABLES Final Res ult [facility] [address] [place] [address], * (ABNORMAL) Basic metabolic panel (11/17/2024 5:33 PM EST) Only the most recent of2 resultswithin the time period is included. Sodium 138 133 - 145 mmol/L LAB CHEMISTRY METHOD 11/17/2024 6:13 PM [facility] Potassium 4.0 3.5 - 5.5 mmol/L LAB CHEMISTRY METHOD 11/17/2024 6:13 PM [facility] Chloride 106 96 - 110 mmol/L LAB CHEMISTRY METHOD 11/17/2024 6:13 PM [facility] CO2 27 21 - 32 mmol/L LAB CHEMISTRY METHOD 11/17/2024 6:13 PM [facility] Anion Gap 5 3 - 11 LAB CHEMISTRY METHOD 11/17/2024 6:13 PM [facility] Glucose 170(H) 70 - 100 mg/dL LAB CHEMISTRY METHOD 11/17/2024 6:13 PM [facility] BUN 22 5 - 25 mg/dL LAB CHEMISTRY METHOD 11/17/2024 6:13 PM [facility] Creatinine 0.84 0.50 - 1.10 mg/dL LAB CHEMISTRY METHOD 11/17/2024 6:13 PM [facility] eGFR 80 >=60 mL/min/1. 73m2 LAB CHEMISTRY METHOD 11/17/2024 6:13 PM [facility] Comment:Calculation based on the??Chronic Kidney Disease Epidemiology Collaboration (CKD-EPI) equation refit??without adjustment for race. BUN/Creatinine Ratio 26.2 LAB CHEMISTRY METHOD 11/17/2024 6:13 PM [facility] Calcium 8.7 8.5 - 10.5 mg/dL LAB CHEMISTRY METHOD 11/17/2024 6:13 PM [facility] Blood Venous blood specimen / Unknown Venipuncture / Unknown 11/17/2024 5:33 PM EST 11/17/2024 5:43 PM EST us Pancho Mercer MD LAB BLOOD ORDERABLES Final Res ult [facility] [address] [place] [address], [place] [phone] * (ABNORMAL) Urinalysis with reflex microscopic (11/13/2024 2:04 PM EST) Specific [place] Urine 1.013 1.003 - 1.030 LAB URINALYSIS - AUTOMATED METHOD 11/13/2024 2:46 PM [facility] pH, Urine 6.0 5.0 - 8.0 pH LAB URINALYSIS - AUTOMATED METHOD 11/13/2024 2:46 PM [facility] Leukocytes, Urine Negative Negative LAB URINALYSIS - AUTOMATED METHOD 11/13/2024 2:46 PM [facility] Nitrite, Urine Negative Negative LAB URINALYSIS - AUTOMATED METHOD 11/13/2024 2:46 PM [facility] Protein, Urine Negative <=Trace mg/dL LAB URINALYSIS - AUTOMATED METHOD 11/13/2024 2:46 PM [facility] Glucose, Urine 100(A) Negative mg/dL LAB URINALYSIS - AUTOMATED METHOD 11/13/2024 2:46 PM [facility] Ketones, Urine Negative Negative mg/dL LAB URINALYSIS - AUTOMATED METHOD 11/13/2024 2:46 PM [facility] Urobilinogen, Urine 0.2 0.2 - 1.0 mg/dL LAB URINALYSIS - AUTOMATED METHOD 11/13/2024 2:46 PM [facility] Bilirubin, Urine Negative Negative LAB URINALYSIS - AUTOMATED METHOD 11/13/2024 2:46 PM [facility] Blood, Urine Negative Negative LAB URINALYSIS - AUTOMATED METHOD 11/13/2024 2:46 PM [facility] Urine Urine specimen obtained by clean catch procedure / Unknown Non-blood Collection / Unknown 11/13/2024 2:04 PM EST 11/13/2024 2:39 PM EST Pieter Motta MD LAB URINE ORDERABLES Final Re sult Performing Organization Address [facility]/ZIP Co de Phone Number [facility] [address] [place] [address], [place] [phone] * Culture blood (11/13/2024 12:42 PM EST) Culture, Blood No growth at 5 days LAB MICROBIOLOGY METHOD 11/18/2024 1:01 PM EST [facility] Blood Venous blood specimen / Unknown Venipuncture / Unknown 11/13/2024 12:42 PM EST 11/13/2024 12:57 PM EST Magaly Scott NP LAB MICROBIOLOGY - GENERAL ORD ERABLES Final Result Performing Organization Address [facility] Co de Phone Number [facility] [address] [place] [address], [place] [phone] * CT Angio Chest wo and/or w Contrast (11/13/2024 9:47 AM EST) Anatomical Region Laterality Modality Body Computed Tomogra phy 11/13/2024 10:0 2 AM EST Impressions 11/13/2024 10:09 AM EST Impression: 1. No evidence of pulmonary thromboembolism is seen. 2. Scattered small airspace opacities, most likely infectious/inflammatory. 3. Diffuse bronchial wall thickening, consistent with bronchitis or reactive airways disease. Telerad DEVAN ([id number]) -------- FINAL REPORT -------- Dictated By: Sierra Israel Dictated Date: 11/13/2024 10:02 ET Assigned Physician: Sierra Israel Reviewed and Electronically Signed By: Sierra Israel Signed Date: 11/13/2024 10:09 ET Workstation ID: [id number] Transcribed By: Self Edit Transcribed Date: 11/13/2024 10:02 ET Narrative 11/13/2024 10:09 AM EST History: Dyspnea. Comparison: No comparison thoracic CT at this institution. TECHNIQUE: Helical volumetric imaging of the thorax was performed in the axial plane during the rapid, uneventful intravenous administration of 90 mL Isovue-370, using the CT angiography protocol tailored for evaluation of the pulmonary arteries. Coronal and sagittal images were reformatted from the original data set and maximum intensity pixel images were reviewed, in multiple planes, on an independent CT workstation. DLP: 381.53 mGy/cm KG FundingT Iterative reconstruction technique Findings: There is adequate opacification of the pulmonary arterial tree to the subsegmental level. No intraluminal filling defects are seen to suggest pulmonary thromboembolism. No pattern of right heart strain is identified. There is moderate mural calcification of the thoracic aorta. No pleural or pericardial effusions are identified. Mild bilateral hilar lymphadenopathy is seen, with nodes measuring up to 10 mm short axis on the right and 7 mm on the left. There is a borderline aortopulmonary window lymph node. Calcified lymph nodes are seen in the subcarinal space and in the bilateral chela, suggesting old granulomatous disease. The included portions of the thyroid gland show no suspicious nodule. The trachea and central bronchial tree are patent. There is diffuse bronchial wall thickening bilaterally, consistent with underlying bronchitis or reactive airways disease. There are scattered, very small airspace opacities bilaterally which are comprised partially of groundglass attenuation. One of these is seen at the base of the right middle lobe, another at the base of the right lower lobe, and another in the posterior left upper lobe, likely infectious/inflammatory. A homogeneously calcified nodule at the left lung base is consistent with old granulomatous disease. A small portion of the upper abdomen included on the lowest images through the thorax is without significant abnormality. The regional skeleton is intact. Procedure Note Sierra Israel MD - 11/13/2024 History: Dyspnea. Comparison: No comparison thoracic CT at this institution. TECHNIQUE: Helical volumetric imaging of the thorax was performed in theaxial plane during the rapid, uneventful intravenous administration of 90mL Isovue-370, using the CT angiography protocol tailored for evaluationof the pulmonary arteries. Coronal and sagittal images were reformattedfrom the original data set and maximum intensity pixel images werereviewed, in multiple planes, on an independent CT workstation. DLP: 381.53 mGy/cm WineristpeVega-Chi VCT Iterative reconstruction technique Findings: There is adequate opacification of the pulmonary arterial tree to thesubsegmental level. No intraluminal filling defects are seen to suggestpulmonary thromboembolism. No pattern of right heart strain is identified.There is moderate mural calcification of the thoracic aorta. No pleural or pericardial effusions are identified. Mild bilateral hilarlymphadenopathy is seen, with nodes measuring up to 10 mm short axis onthe right and 7 mm on the left. There is a borderline aortopulmonarywindow lymph node. Calcified lymph nodes are seen in the subcarinal spaceand in the bilateral chela, suggesting old granulomatous disease. The included portions of the thyroid gland show no suspicious nodule. The trachea and central bronchial tree are patent. There is diffusebronchial wall thickening bilaterally, consistent with underlyingbronchitis or reactive airways disease. There are scattered, very smallairspace opacities bilaterally which are comprised partially ofgroundglass attenuation. One of these is seen at the base of the rightmiddle lobe, another at the base of the right lower lobe, and another inthe posterior left upper lobe, likely infectious/inflammatory. Ahomogeneously calcified nodule at the left lung base is consistent withold granulomatous disease. A small portion of the upper abdomen included on the lowest images throughthe thorax is without significant abnormality. The regional skeleton is intact. IMPRESSION: Impression: 1. No evidence of pulmonary thromboembolism is seen. 2. Scattered small airspace opacities, most likelyinfectious/inflammatory. 3. Diffuse bronchial wall thickening, consistent with bronchitis orreactive airways disease. Telerad PA ([id number]) -------- FINAL REPORT -------- Dictated By: Sierra Israel Dictated Date: 11/13/2024 10:02 ET Assigned Physician: Sierra Israel Reviewed and Electronically Signed By: Sierra Israel Signed Date: 11/13/2024 10:09 ET Workstation ID: [id number] Transcribed By: Self Edit Transcribed Date: 11/13/2024 10:02 ET us Eliseo Chow MD [facility] CT PROCEDURES Final Res ult * (ABNORMAL) D-Dimer (Quantitative) (11/13/2024 6:39 AM EST) Pathologist [facility] D-Dimer, Quant (D-DU) 321(H) <=230 ng/mL DDU LAB COAGULATION METHOD 11/13/2024 7:25 AM [facility] Blood Venous blood specimen / Unknown Venipuncture / Unknown 11/13/2024 6:39 AM EST 11/13/2024 6:49 AM EST [facility] - 11/13/2024 7:25 AM EST D-Dimer <230 ng/mL (D-Dimer units) is the threshold for exclusion of DVT/PE. D-Dimer may be elevated in: Critically ill, severely infected, trauma patients, DIC, acute CVA, acute TN, unstable angina, AF, old age, , and smoking. D-Dimer may be decreased with: Initiation of heparin therapy and oral anticoagulants. us Marcellus HARTMAN LAB BLOOD ORDERABLES Final Resul t [facility] [address] [place] [address], [place] [phone] * (ABNORMAL) Urinalysis with reflex microscopic and culture (11/13/2024 2:06 AM EST) [facility] Specific [place] Urine 1.024 1.003 - 1.030 LAB URINALYSIS - AUTOMATED METHOD 11/13/2024 2:43 AM [facility] pH, Urine 5.5 5.0 - 8.0 pH LAB URINALYSIS - AUTOMATED METHOD 11/13/2024 2:43 AM [facility] Leukocytes, Urine Small(A) Negative LAB URINALYSIS - AUTOMATED METHOD 11/13/2024 2:43 AM [facility] Nitrite, Urine Positive(A) Negative LAB URINALYSIS - AUTOMATED METHOD 11/13/2024 2:43 AM [facility] Protein, Urine 30(A) <=Trace mg/dL LAB URINALYSIS - AUTOMATED METHOD 11/13/2024 2:43 AM [facility] Glucose, Urine Negative Negative mg/dL LAB URINALYSIS - AUTOMATED METHOD 11/13/2024 2:43 AM [facility] Ketones, Urine Negative Negative mg/dL LAB URINALYSIS - AUTOMATED METHOD 11/13/2024 2:43 AM [facility] Urobilinogen , Urine 0.2 0.2 - 1.0 mg/dL LAB URINALYSIS - AUTOMATED METHOD 11/13/2024 2:43 AM [facility] Bilirubin, Urine Negative Negative LAB URINALYSIS - AUTOMATED METHOD 11/13/2024 2:43 AM [facility] Blood, Urine Negative Negative LAB URINALYSIS - AUTOMATED METHOD 11/13/2024 2:43 AM [facility] RBC, Urine 2.3 0 - 4 /HPF LAB URINALYSIS - AUTOMATED METHOD 11/13/2024 2:43 AM [facility] WBC, Urine 66.7(H) 0 - 4 /HPF LAB URINALYSIS - AUTOMATED METHOD 11/13/2024 2:43 AM [facility] Squamous Epithelial, Urine 61(H) 0 - 60 /LPF LAB URINALYSIS - AUTOMATED METHOD 11/13/2024 2:43 AM [facility] Bacteria, Urine Many(A) Negative /HPF LAB URINALYSIS - AUTOMATED METHOD 11/13/2024 2:43 AM [facility] Hyaline Casts, Urine 7.5(H) 0 - 3 /LPF LAB URINALYSIS - AUTOMATED METHOD 11/13/2024 2:43 AM [facility] Urine Urine specimen obtained by clean catch procedure / Unknown Non-blood Collection / Unknown 11/13/2024 2:06 AM EST 11/13/2024 2:24 AM EST us Eliseo Chow MD LAB URINE ORDERABLES Final Result Performing Organization Address City/[facility]/ZIP Co de Phone Number [facility] [address] [place] [address], [place] [phone] * [place] urine culture tube (11/13/2024 2:06 AM EST) Extra Tube Hold for add-ons. 11/13/2024 4:05 AM EST [facility] Comment:Auto resulted. Urine Urine specimen obtained by clean catch procedure / Unknown Non-blood Collection / Unknown 11/13/2024 2:06 AM EST 11/13/2024 2:24 AM EST Eliseo Chow MD LAB URINE ORDERABLES Final Result Performing Organization Address [facility]/ZIP Co de Phone Number [facility] [address] [place] [address], [place] [phone] * (ABNORMAL) Culture urine (11/13/2024 2:06 AM EST) Culture, Urine >100,000 CFU/mL Escherichia coli(A) JENNIFER 11/15/2024 10:15 AM EST [facility] Comment: This is an edited result. Previous organism was Gram negative bacilli on 11/14/2024 at 1127 EST. Urine Urine specimen obtained by clean catch procedure / Unknown Non-blood Collection / Unknown 11/13/2024 2:06 AM EST 11/13/2024 2:43 AM EST Narrative Organism Antibiotic Method Susceptibility Escherichia coli Amoxicillin/Clavulanate JENNIFER <=2 ug/ml: Susceptible Escherichia coli Ampicillin/Sulbactam JENNIFER <=2 ug/ml: Susceptible Escherichia coli Piperacillin/Tazobactam JENNIFER <=4 ug/ml: Susceptible Escherichia coli Cefazolin (Urine) JENNIFER 2 ug/ml: Susceptible Escherichia coli Cefoxitin JENNIFER <=4 ug/ml: Susceptible Escherichia coli Ceftazidime JENNIFER <=0.5 ug/ml: Susceptible Escherichia coli Ceftriaxone JENNIFER <=0.25 ug/ml: Susceptible Escherichia coli Cefepime JENNIFER <=0.12 ug/ml: Susceptible Escherichia coli Meropenem JENNIFER <=0.25 ug/ml: Susceptible Escherichia coli Amikacin JENNIFER 2 ug/ml: Susceptible Escherichia coli Gentamicin JENNIFER <=1 ug/ml: Susceptible Escherichia coli Ciprofloxacin JENNIFER <=0.06 ug/ml: Susceptible Escherichia coli Levofloxacin JENNIFER <=0.12 ug/ml: Susceptible Escherichia coli Nitrofurantoin JENNIFER <=16 ug/ml: Susceptible Escherichia coli Trimethoprim/Sulfamethoxazole JENNIFER <=20 ug/ml: Susceptible Eliseo Chow MD LAB MICROBIOLOGY - GENERAL ORDERABLES Final Result [facility] ([facility]) [facility] [address] [place] [address], [place] [phone] * CT Cervical Spine wo Contrast (11/13/2024 1:58 AM EST) Anatomical Region Laterality Modality Spine, C-spine Computed Tomogra phy 11/13/2024 2:52 AM EST Impressions 11/13/2024 2:52 AM EST Impression: No acute fracture or dislocation Degenerative changes. This document has been electronically signed by: Jamin Arias MD on 11/13/2024 02:52:09 Narrative 11/13/2024 2:52 AM EST Exam: CT cervical spine without IV contrast. Comparison: None Findings: No acute fracture or dislocation. Multilevel degenerative disc space narrowing with degenerative spurring. No high grade canal compromise. No suspicious osseous lesions. Paraspinal soft tissues unremarkable. Procedure Note Jamin Arias MD - 11/13/2024 Exam: CT cervical spine without IV contrast. Comparison: None Findings: No acute fracture or dislocation. Multilevel degenerative disc space narrowing with degenerative spurring. No high grade canal compromise. No suspicious osseous lesions. Paraspinal soft tissues unremarkable. IMPRESSION: Impression: No acute fracture or dislocation Degenerative changes. This document has been electronically signed by: Jamin Arias MD on 11/13/2024 02:52:[address] PROCEDURES Final Result * CT Head wo Contrast (11/13/2024 1:58 AM EST) Anatomical Region Laterality Modality Head and Neck Computed Tomogra phy 11/13/2024 2:48 AM EST Impressions 11/13/2024 2:48 AM EST Impression: No acute intracranial pathology. This document has been electronically signed by: Jamin Arias MD on 11/13/2024 02:48:22 Narrative 11/13/2024 2:48 AM EST Exam: CT head without contrast Comparison: None Findings: No acute stroke or bleed. Taveras-white differentiation maintained. Ventricles are midline. No hydrocephalus. No sinus fluid levels. No significant mastoid air cell effusion. No acute skull fracture. Procedure Note Jamin Arias MD - 11/13/2024 Exam: CT head without contrast Comparison: None Findings: No acute stroke or bleed. Taveras-white differentiation maintained. Ventricles are midline. No hydrocephalus. No sinus fluid levels. No significant mastoid air cell effusion. No acute skull fracture. IMPRESSION: Impression: No acute intracranial pathology. This document has been electronically signed by: Jamin Arias MD on 11/13/2024 02:48:22 Marcellus HARTMAN [facility] CT PROCEDURES Final Result * (ABNORMAL) Respiratory virus panel molecular study (11/13/2024 1:34 AM EST) Adenovirus Detection by PCR Not Detected Not Detected LAB MICROBIOLOGY METHOD 11/13/2024 2:37 AM EST [facility] Influenza B PCR Not Detected Not Detected LAB MICROBIOLOGY METHOD 11/13/2024 2:37 AM EST [facility] Coronavirus 229E Not Detected Not Detected LAB MICROBIOLOGY METHOD 11/13/2024 2:37 AM [facility] Coronavirus HKU1 Not Detected Not Detected LAB MICROBIOLOGY METHOD 11/13/2024 2:37 AM EST [facility] Coronavirus OC43 Not Detected Not Detected LAB MICROBIOLOGY METHOD 11/13/2024 2:37 AM EST [facility] Coronavirus NL63 Not Detected Not Detected LAB MICROBIOLOGY METHOD 11/13/2024 2:37 AM [facility] Parainfluenza Virus 1 Not Detected Not Detected LAB MICROBIOLOGY METHOD 11/13/2024 2:37 AM [facility] Parainfluenza Virus 2 Not Detected Not Detected LAB MICROBIOLOGY METHOD 11/13/2024 2:37 AM [facility] Parainfluenza Virus 3 Not Detected Not Detected LAB MICROBIOLOGY METHOD 11/13/2024 2:37 AM [facility] Parainfluenza Virus 4 Not Detected Not Detected LAB MICROBIOLOGY METHOD 11/13/2024 2:37 AM [facility] RSV PCR Not Detected Not Detected LAB MICROBIOLOGY METHOD 11/13/2024 2:37 AM [facility] Human Metapneumovirus A and B Not Detected Not Detected LAB MICROBIOLOGY METHOD 11/13/2024 2:37 AM [facility] Rhinovirus/Entero virus Not Detected Not Detected LAB MICROBIOLOGY METHOD 11/13/2024 2:37 AM [facility] Bordetella pertussis Not Detected Not Detected LAB MICROBIOLOGY METHOD 11/13/2024 2:37 AM [facility] Bordetella parapertussis Not Detected Not Detected LAB MICROBIOLOGY METHOD 11/13/2024 2:37 AM [facility] Influenza A H1N1 PDM09 Detected(A ) Not Detected LAB MICROBIOLOGY METHOD 11/13/2024 2:37 AM [facility] Mycoplasma pneumo by PCR Not Detected Not Detected LAB MICROBIOLOGY METHOD 11/13/2024 2:37 AM [facility] Chlamydia pneumoniae Not Detected Not Detected LAB MICROBIOLOGY METHOD 11/13/2024 2:37 AM [facility] SARS COV-2 Not Detected Not Detected LAB MICROBIOLOGY METHOD 11/13/2024 2:37 AM [facility] Swab Both anterior nares / Unknown Non-blood Collection / Unknown 11/13/2024 1:34 AM EST 11/13/2024 1:48 AM EST Narrative [facility] ([facility]) [facility] - 11/13/2024 2:37 AM EST Testing was performed using the [employer] Respiratory Pathogen PCR Assay. All results must be correlated with the clinical findings. Results should not be used as the sole basis for diagnosis. False Negative results may occur from the presence of sequence variants in the region targeted by the assay or the presence of inhibitors. Results may be affected by concurrent antiviral/antimicrobial therapy or levels of organisms that are below the limit of detection. Eliseo Chow MD LAB MICROBIOLOGY - GENERAL ORDERABLES Final Result [facility] [address] [place] [address], * ECG-Outside (11/13/2024) us Provider Onbase MD ECG ORDERABLES Final Result * SCREENING MAMMOGRAPHY BI 2-VIEW BREAST INC CAD (04/09/2024 7:39 AM EDT) Anatomical Region Laterality Modality Radiographic Radha ging 03/28/2023 7:42 AM EDT Narrative 04/09/2024 3:34 PM EDT This is a summary report. The complete report is available in the patient's medical record. If you cannot access the medical record, please contact the sending organization for a detailed fax or copy. Full field digital screening to DC views and tomosynthesis mammography, reviewed with CAD and compared to previous. The breasts are composed of fatty and fibroglandular tissue. ??No suspicious mass, architectural distortion or suspicious calcifications are identified. IMPRESSION: : No mammographic evidence of malignancy. BIRADS 1-Negative; N. 5 year breast cancer risk assessment 1.4 % Lifetime breast cancer risk assessment 6.9 % Breast cancer risk category Low (<15%) Procedure Note Yuliana Berg MD - 08/04/2024 This is a summary report. The complete report is available in thepatient's medical record. If you cannot access the medical record, pleasecontact the sending organization for a detailed fax or copy. Full field digital screening to DC views and tomosynthesis mammography,reviewed with CAD and compared to previous. The breasts are composed offatty and fibroglandular tissue. No suspicious mass, architecturaldistortion or suspicious calcifications are identified. IMPRESSION: : No mammographic evidence of malignancy. BIRADS 1-Negative; N. 5 year breast cancer risk assessment 1.4 % Lifetime breast cancer risk assessment 6.9 % Breast cancer risk category Low (<15%) Josefina Burden MD IMG XR PROCEDURES Final Result * Cervical Cancer Screening: HPV (2023) [facility] Cervical Cancer Screening: HPV no interpretation , abstracted Historical Provider HEALTH MAINTENANCE Edited Result - Final * Colonoscopy (02/06/2015) [facility] Colonoscopy no interpreta tion,abstr acted Anatomical Region Laterality Modality Other Historical Provider HEALTH MAINTENANCE Final Result * Hepatitis C Screening (07/13/2013) [facility] Hepatitis C Screening abstracted [facility] Provider HEALTH MAINTENANCE Final Result from Last 3 Months or Most Recently Relevant to Health Maintenance Insurance [facility] Advance Directives * Full Code - Default (Latest Code Status on File) Date Activated Date Inactivated Comments 11/13/2024 12:35 PM 11/14/2024 3:11 PM This is ord er is used when code status has not been discussed with the patient, or code status is otherwise unknown/unconfirmed To update the patient's code status, place a code status order. Do not modify or discontinue any currently active code status orders. Care Teams Custom Van Converter Relationship Specialty Start Date End Date Josefina Burden MD [address] [place] [address] PCP - General Internal Medicine 12/18/22
--- OUTSIDE RECORDS SUMMARY | 2025-01-13 11:02 | XMS_ITS | Encounter Summary ---
Author Organization [facility] Address [address] [place] [address] Care Team Providers Care Caser Name Role Phone Surinder Sanders MD Primary Care Provider Unavail able Karla Raymond MD Primary Care Provider U Josefina Caceres MD Primary Care Provider [phone] Cayla Tarango MD Unavailable [phone] Brenda Alberto PA-C Unavailable [phone] Louis Nolan PA-C Unavailable [phone] Reason for Referral * Specialist (Routine) - Authorized/Booked Specialty Diagnoses / Procedures Referred By Contsukhi t Referred To Contact Dermatology Diagnoses Toenail deformity Procedures REFERRAL TO DERMATOLOGY Surinder Sanders MD [address] [place] [address] [facility] [address] [place] [id number] Referral ID Status Reason Start Date Expiration Date V isits Requested Visits Authorized NOT REQUIRED Authorized/ Booked 06/10/2014 06/10/2015 1 1 Reason for Visit * Reason Onset Date Comments TEST RESULTS 06/08/2014 Encounter Details Date Type Department Care Team Description 06/08/2014 Telephone Adult Medicine B - [address] [address] Surinder Sanders MD TEST RESULTS Social History Tobacco Use Types Packs/Day Years Used Date Smoking Tobacco: Never Alcohol Use Standard Drinks/Week Comments No 0 (1 standard drink = 0.6 oz pur e alcohol) Sex Assigned at Date Recorded Not on file Job Start Date Occupation Industry Not on file Not on file Not on file documented as of this encounter Miscellaneous Notes * Telephone Encounter - Brenda Houser M.A. - 06/09/2014 3:[address] referral * Telephone Encounter - Lilian Loving M.A. - 06/08/2014 5:02 PM EDT Informed pt's of message below. She will call tomorrow and let us know if she is willing togo to a dermatalogist * Telephone Encounter - Surinder Sanders MD - 06/08/2014 4:53 PM EDT culture is negative, Please call patient. Can ref to derm if she would like * Telephone Encounter - Bere Lucero L.P.NLisa - 06/08/2014 4:30 PM EDT Fungal culture is negative She still has problem with toenails Would like to know what to do next * Telephone Encounter - Kunal Calvo - 06/08/2014 4:23 PM EDT Inform patient: ANY URGENT OR ABNORMAL RESULTS WIILL RESULT IN A CALL BACK TO THE PATIENT WILLIAM. Type of test: :fungal culture Date test was performed: 14 Where was the test performed: [place] Who ordered this test?: Surinder Sanders Is the doctor here today?: YES Can the message wait until the doctor returns?: YES IF PATIENT'S PCP IS NOT IN INSTRUCT PATIENT THAT THEY WILL RECEIVE A CALL BACK WHEN THE PCP IS IN THE OFFICE NEXT. documented in this encounter Plan of Treatment Not on file documented as of this encounter Visit Diagnoses Diagnosis Toenail deformity- Primary Unspecified disease of nail documented in this encounter Care Teams Caser Relationship Specialty Start Date End Date Surinder Sanders MD PCP - General 04/19/1995 09/30/17 Karla Raymond MD PCP - General Internal Medicine 10/01/1712/17 Josefina Burden MD [address] [place] [address] PCP - General Internal Medicine 12/18/22 Cayla Tarango MD [address] [address] Specialist Neurosurgery 06/10/23 Brenda Alberto PA-C [address] [address] Specialist Neurosurgery 08/20/23 Louis Nolan PA-C 175 [facility] [address] [place] [address] Specialist Neurosurgery 08/20/23 documented as of this encounter
--- OUTSIDE RECORDS SUMMARY | 2025-01-13 11:03 | XMS_ITS | Encounter Summary ---
Author Organization [facility] Address [address] [place] [address] Care Team Providers Care Infection Preventionist Name Role Phone Josefina Burden MD Primary Care Provider [phone] Cayla Tarango MD Unavailable [phone] Brenda Alberto PA-C Unavailable [phone] Louis Nolan PA-C Unavailable Encounter Details Date Type Department Care Team Description 12/05/2023 [facility] Neurosurgery [place] [address] [phone] Louis Nolan PA-C [address] [address] Social History Tobacco Use Types Packs/Day Years [...] on filedocumented in this encounter Care Teams Infection Preventionist Relationship Specialty Start Date End Date Josefina Burden MD [address] [place] [address] [id number] PCP - General Internal Medicine 12/18/22 Cayla Tarango MD [address] [id number] Specialist Neurosurgery 06/10/23 Brenda Alberto PA-C [address] [address] Specialist Neurosurgery 08/20/23 Louis Nolan PA-C [address] [address] Specialist Neurosurgery 08/20/23 documented as of this encounter
--- OUTSIDE RECORDS SUMMARY | 2025-01-13 11:03 | XMS_ITS | Encounter Summary ---
Author Organization [facility] Address [address] [place] [address] Care Team Providers Care Manager Of Digital Name Role Phone Surinder Sanders MD Primary Care Provider Unavail able Karla Raymond MD Primary Care Provider U Josefina Caceres MD Primary Care Provider [phone] Cayla Tarango MD Unavailable [phone] Brenda Alberto PA-C Unavailable [phone] Louis Nolan PA-C Unavailable [phone] Encounter Details Date Type Department Care Team Description 07/05/2011 Telephone OBGYN - [facility] [address] [place], [place] [id number] Meek Lira MD Social History Tobacco Use Types Packs/Day Years Used Date Smoking Tobacco: Never Alcohol Use Standard Drinks/Week Comments No 0 (1 standard drink = 0.6 oz pur e alcohol) Sex Assigned at Date Recorded Not on file Job Start Date Occupation Industry Not on file Not on file Not on file documented as of this encounter Miscellaneous Notes * Telephone Encounter - Meek Lira MD - 07/05/2011 5:10 PM EDT pipelle menstrual type endometrium and blood clot [phone] (home) [phone] (work) Called. MLOM to call tests OK documented in this encounter Plan of Treatment Not on file documented as of this encounter Visit Diagnoses Not on filedocumented in this encounter Care Teams Manager Of Digital Relationship Specialty Start Date End Date Surinder Sanders MD PCP - General 04/19/1995 09/30/17 Karla Raymond MD PCP - General Internal Medicine 10/01/1712/17 Josefina Burden MD [address] [place] [address] PCP - General Internal Medicine 12/18/22 Cayla Tarango MD [address] [address] Specialist Neurosurgery 06/10/23 Brenda Alberto PA-C [address] [address] Specialist Neurosurgery 08/20/23 Louis Nolan PA-C [address] [address] Specialist Neurosurgery 08/20/23 documented as of this encounter
--- OUTSIDE RECORDS SUMMARY | 2025-01-13 11:03 | XMS_ITS | Encounter Summary ---
Author Organization [facility] Address [address] [place] [address] Care Team Providers Care Cat And Dog Bather Name Role Phone Karla Raymond MD Primary Care Provider U Josefina Caceres MD Primary Care Provider [phone] Cayla Tarango MD Unavailable [phone] Brenda Alberto PA-C Unavailable [phone] Louis Nolan PA-C Unavailable [phone] Reason for Visit * Reason Onset Date Comments REFERRAL 09/22/2019 pulmonary Encounter Details Date Type Department Care Team Description 09/22/2019 Telephone Medicine/Pediatrics - [address] [phone] Karla Raymond MD REFERRAL (pulmonary) Social History Tobacco Use Types Packs/Day Years [...] encounter Miscellaneous Notes * Telephone Encounter - Elizabeth Ambrocio - 09/22/2019 2:02 PM EST FYI to ordering provider. Re:Pulmonary Consult All attempts exhausted to reach patient to book appt. KMS. documented in this encounter Plan of Treatment Not on file documented as of this encounter Visit Diagnoses Not on filedocumented in this encounter Care Teams Cat And Dog Bather Relationship Specialty Start Date End Date Karla Raymond MD PCP - General Internal Medicine 10/01/1712/17 Josefina Burden MD [address] [place] [address] PCP - General Internal Medicine 12/18/22 Cayla Tarango MD [address] [address] Specialist Neurosurgery 06/10/23 Brenda Alberto PA-C [address] [address] Specialist Neurosurgery 08/20/23 Louis Nolan PA-C 175 [facility] [address] [place] [address] Specialist Neurosurgery 08/20/23 documented as of this encounter
--- OUTSIDE RECORDS SUMMARY | 2025-01-13 11:03 | XMS_ITS | Encounter Summary ---
Author Organization [facility] Address [address] [place] [address] Care Team Providers Care Irrigationist Name Role Phone Karla Raymond MD Primary Care Provider U Josefina Caceres MD Primary Care Provider [phone] Cayla Tarango MD Unavailable [phone] Brenda Alberto PA-C Unavailable [phone] Louis Nolan PA-C Unavailable [phone] Reason for Referral * Non YOHANA (Urgent) - Unable to reach/declined Specialty Diagnoses / Procedures Referred By Loulou ibrahim Referred To Contact Dermatology Procedures REFERRAL TO DERMATOLOGY Raymon Blakely MD [address] [place] [address] Derm/[place] [address] [place] [address] Referral ID Status Reason Start Date Expiration Date V isits Requested Visits Authorized [id number] 07/07 LTR Unable to reach/decli cookie 07/02/2019 07/01/2020 1 1 Reason for Visit * Reason Onset Date Comments REFERRAL 07/02/2019 Encounter Details Date Type Department Care Team Description 07/02/2019 Telephone Adult Medicine - [address] [phone] Raymon Blakely MD REFERRAL Social History Tobacco Use Types Packs/Day Years [...] Telephone Encounter - Nell Godinez APRN - 07/02/2019 4:12 PM EDT Signed * Telephone Encounter - Nancy Yeh M.A. - 07/02/2019 4:06 PM EDT Referral pended * Telephone Encounter - Nell Godinez APRN - 07/02/2019 3:56 PM EDT Please set up referral * Telephone Encounter - Nancy Yeh M.A. - 07/02/2019 3:54 PM EDT Last office visit 06/17/[address] Blakely Pt request urgent referral for derm, please adivse * Telephone Encounter - Adamaris Vasquez - 07/02/2019 3:47 PM EDT Caller requesting call back from provider: Is the caller the patient? YES If caller is not the patient, what is the callers name? N/A Callers relationship to patient? N/A If person calling is not the patient themselves, is there a verbal release in FYI or permanent comments for this person: NO Reason for call back: Patient is calling regarding a dermatology referral that was placed for her, she looking for a more urgent request, She can not wait until October when they are booking out to. The spot on her face is extremely itchy and irritating her. Caller offered to speak with the nurse for assistance: YES Response: Patient offered to speak with nurse for assistance and patient agreed. Message forwarded to nurse. documented in this encounter Plan of Treatment Not on file documented as of this encounter Visit Diagnoses Not on filedocumented in this encounter Care Teams Irrigationist Relationship Specialty Start Date End Date Karla Raymond MD PCP - General Internal Medicine 10/01/1712/17 Josefina Burden MD [address] [place] [address] PCP - General Internal Medicine 12/18/22 Cayla Tarango MD [address] [address] Specialist Neurosurgery 06/10/23 Brenda Alberto PA-C [address] [address] Specialist Neurosurgery 08/20/23 Louis Nolan PA-C [address] [address] Specialist Neurosurgery 08/20/23 documented as of this encounter
--- OUTSIDE RECORDS SUMMARY | 2025-01-13 11:03 | XMS_ITS | Encounter Summary ---
Author Organization [facility] Address [address] [place] [address] Care Team Providers Care Machine Former Name Role Phone Surinder Sanders MD Primary Care Provider Unavail able Karla Raymond MD Primary Care Provider U navailable Josefina Burden MD Primary Care Provider [phone] Cayla Tarango MD Unavailable [phone] Brenda Alberto PA-C Unavailable [phone] oLuis Nolan PA-C Unavailable [phone] Encounter Details Date Type Department Care Team Description 05/15/[address] Attendant Report Medical Records [address] [place] [address] Gabrielle Ardon [address] [place] [address] Social History Tobacco Use Types Packs/Day Years [...] on filedocumented in this encounter Care Teams Machine Former Relationship Specialty Start Date End Date Surinder Sanders MD PCP - General 04/19/1995 09/30/17 Karla Raymond MD PCP - General Internal Medicine 10/01/1712/17 Josefina Burden MD [address] [place] [address] PCP - General Internal Medicine 12/18/22 Cayla Tarango MD [address] [address] Specialist Neurosurgery 06/10/23 Brenda Alberto PA-C [address] [address] Specialist Neurosurgery 08/20/23 Louis Nolan PA-C [address] [phone] Specialist Neurosurgery 08/20/23 documented as of this encounter
--- OUTSIDE RECORDS SUMMARY | 2025-01-13 11:03 | XMS_ITS | Encounter Summary ---
Author Organization [facility] Address [address] [place] [address] Care Team Providers Care Cancer Center Director Name Role Phone Karla Raymond MD Primary Care Provider U Josefina Caceres MD Primary Care Provider [phone] Cayla Tarango MD Unavailable [phone] Brenda Alberto PA-C Unavailable [phone] Louis Nolan PA-C Unavailable [phone] Reason for Visit * Reason Onset Date Comments Appointment-Internal Referral 07/22/2019 De rmatology Encounter Details Date Type Department Care Team Description 07/22/2019 Telephone Adult Medicine [facility] [address] [place] [address] Raymon Blakely MD Appointment-Internal Referral (Dermatology) Social History Tobacco Use Types Packs/Day Years [...] encounter Miscellaneous Notes * Telephone Encounter - Sunshine Mendez - 07/22/2019 9:24 AM EDT Alfonzo Resendiz has not responded to the telephone calls that were made on 07/05/19 and 07/07/19 (voice mail full) as well as a letter was sent on 07/07/19 to schedule a Dermatology Consult for a itching ; therefore we are removing the patient from our open internal referrals report at this time. If you should hear from the patient please let them know that we did attempt to reach them. ?? Thank you, Sunshine Internal Central Referral Scheduling documented in this encounter Plan of Treatment Not on file documented as of this encounter Visit Diagnoses Not on filedocumented in this encounter Care Teams Cancer Center Director Relationship Specialty Start Date End Date Karla Raymond MD PCP - General Internal Medicine 10/01/1712/17 Josefina Burden MD [address] [place] [address] PCP - General Internal Medicine 12/18/22 Cayla Tarango MD [address] [address] Specialist Neurosurgery 06/10/23 Brenda Alberto PA-C [address] [address] Specialist Neurosurgery 08/20/23 Louis Nolan PA-C [address] [address] Specialist Neurosurgery 08/20/23 documented as of this encounter
--- OUTSIDE RECORDS SUMMARY | 2025-01-13 11:03 | XMS_ITS | Encounter Summary ---
Author Organization [facility] Address [address] [place] [address] Care Team Providers Care Web Site Project Manager Name Role Phone Josefina Burden MD Primary Care Provider [phone] Cayla Tarango MD Unavailable [phone] Brenda Alberto PA-C Unavailable [phone] Louis Nolan PA-C Unavailable [phone] Encounter Details Date Type Department Care Team Description 08/26/2023 Heel Seat Pounder Report Medical Records [address] [place] [address] Anuel Kunz PA-C Social History Tobacco Use Types Packs/Day Years Used Date Smoking Tobacco: Never Smokeless Tobacco: Never Alcohol Use Standard Drinks/Week Comments No 0 (1 standard drink = 0.6 oz pur e alcohol) Sex Assigned at Date Recorded Not on file Job Start Date Occupation Industry Not on file Not on file Not on file COVID-19 Exposure Response Date Recorded In the last 10 days, have yo u been in contact with someone who was confirmed or suspected to have Coronavirus/COVID-19? No / Unsure 08/20/2023 11:02 AM EDT documented as of this encounter Plan of Treatment Not on file documented as of this encounter Visit Diagnoses Not on filedocumented in this encounter Care Teams Web Site Project Manager Relationship Specialty Start Date End Date Josefina Burden MD [address] [place] [address] PCP - General Internal Medicine 12/18/22 Cayla Tarango MD 175 [facility] [address] [place] [address] [id number] Specialist Neurosurgery 06/10/23 Brenda Alberto PA-C [address] [address] Specialist Neurosurgery 08/20/23 Louis Nolan PA-C 175 [facility] [address] [place] [address] Specialist Neurosurgery 08/20/23 documented as of this encounter
--- OUTSIDE RECORDS SUMMARY | 2025-01-13 11:03 | XMS_ITS | Encounter Summary ---
Author Organization [facility] Address [address] [place] [address] Care Team Providers Care Patriot [employer] Name Role Phone Josefina Burden MD Primary Care Provider [phone] Cayla Tarango MD Unavailable [phone] Brenda Alberto PA-C Unavailable [phone] Louis Nolan PA-C Unavailable [phone] Encounter Details Date Type Department Care Team Description 08/27/2023 Telephone [facility] 175 [facility] [address] [place] [phone] Louis Nolan PA-C 175 [facility] [address] [place], [place] [id number] Social History Tobacco Use Types Packs/Day Years [...] on filedocumented in this encounter Care Teams [employer] Art[employer] Relationship Specialty Start Date End Date Josefina Burden MD [address] [place] [address] PCP - General Internal Medicine 12/18/22 Cayla Tarango MD [address] [address] Specialist Neurosurgery 06/10/23 Brenda Alberto PA-C [address] [address] Specialist Neurosurgery 08/20/23 Louis Nolan PA-C 175 [facility] [address] [place] [address] Specialist Neurosurgery 08/20/23 documented as of this encounter
--- OUTSIDE RECORDS SUMMARY | 2025-01-13 11:03 | XMS_ITS | Encounter Summary ---
Author Organization [facility] Address [address] [place] [address] Care Team Providers Care Public Policy Professor Name Role Phone Karla Raymond MD Primary Care Provider U Josefina Caceres MD Primary Care Provider [phone] Cayla Tarango MD Unavailable [phone] Brenda Alberto PA-C Unavailable [phone] Louis Nolan PA-C Unavailable [phone] Reason for Visit * Reason Comments E-prescribe Rx Request Encounter Details Date Type Department Care Team Description 05/04/2019 Refill Adult Medicine [facility] [place] [address] [place] [address] Karla Raymond MD E-prescribe Rx Request Social [...] Telephone Encounter - Karla Cast MD - 05/04/2019 4:31 PM EDT Signed, thank you * Telephone Encounter - Rose Arreola - 05/04/2019 4:21 PM EDT Last office visit: 03.11.2019 Lab Results Component Value Date NA 146 01/10/2017 K 4.5 01/10/2017 CO2 27.6 01/10/2017 CL 103 01/10/2017 BUN 15 01/10/2017 CREAT 0.7 01/10/2017 GLU 426 03/11/2019 CA 9.4 01/10/2017 GFR > 60 01/10/2017 * Telephone Encounter - Jessenia Zhou - 05/04/2019 4:20 PM EDT Patient would like script to be: E-PRESCRIBED/FAXED TO PHARMACY WHEN WAS THE PATIENT'S LAST APPOINTMENT IN ADULT MEDICINE? 03/11/19 WHEN WAS THE LAST TIME THE PATIENT SAW THEIR PCP? 01/01/19 Does patient have an upcoming appointment? no (THE MEDICATION REQUESTED IS ON THE MED LIST ABOVE) All of the medications requested were on the CURRENT MEDS list Did you check the Pharmacy information above?: YES Patient wants: 90 -day supply Is this a mail order prescription request ? NO If the refill is from a FAXED refill request what is the RX # listed on the fax? N/A Patients current insurance carrier is: Payor: [employer] POS / Plan: PPO $25 [id number] / ProductType: PPO [id number] documented in this encounter Plan of Treatment Not on file documented as of this encounter Visit Diagnoses Not on filedocumented in this encounter Care Teams Public Policy Professor Relationship Specialty Start Date End Date Karla Raymond MD PCP - General Internal Medicine 10/01/1712/17 Josefina Burden MD [address] [place] [address] PCP - General Internal Medicine 12/18/22 Cayla Tarango MD [address] [phone] Specialist Neurosurgery 06/10/23 Brenda Alberto PA-C [address] [address] Specialist Neurosurgery 08/20/23 Louis Nolan PA-C 175 [facility] [address] [place] [address] Specialist Neurosurgery 08/20/23 documented as of this encounter
--- OUTSIDE RECORDS SUMMARY | 2025-01-13 11:03 | XMS_ITS | Encounter Summary ---
Author Organization [facility] Address [address] [place] [address] Care Team Providers Care Clinical Assistant Name Role Phone Josefina Burden MD Primary Care Provider [phone] Cayla Tarango MD Unavailable [phone] Brenda Alberto PA-C Unavailable [phone] Louis Nolan PA-C Unavailable [phone] Encounter Details Date Type Department Care Team Description 10/26/2023 [facility] Medical Records [address] [place] [address] [facility] Social History Tobacco Use Types Packs/Day Years [...] on filedocumented in this encounter Care Teams Clinical Assistant Relationship Specialty Start Date End Date Josefina Burden MD [address] [place] [address] PCP - General Internal Medicine 12/18/22 Cayla Tarango MD 175 [facility] [address] [place], [place] [phone] Specialist Neurosurgery 06/10/23 Brenda Alberto PA-C [address] [phone] Specialist Neurosurgery 08/20/23 Louis Nolan PA-C [address] [address] Specialist Neurosurgery 08/20/23 documented as of this encounter
--- OUTSIDE RECORDS SUMMARY | 2025-01-13 11:03 | XMS_ITS | Encounter Summary ---
Author Organization [facility] Address [address] [place] [address] Care Team Providers Care Rivet Heater [employer] Name Role Phone Surinder Sanders MD Primary Care Provider Unavail able Karla Ryamond MD Primary Care Provider U Josefina Caceres MD Primary Care Provider [phone] Cayla Tarango MD Unavailable [phone] Brenda Alberto PA-C Unavailable [phone] Louis Nolan PA-C Unavailable [phone] Reason for Visit * Reason Onset Date Comments Provider Call Back 02/10/2017 Encounter Details Date Type Department Care Team Description 02/10/2017 Telephone Adult Medicine [facility] [address] [place] [address] Suridner Sanders MD Provider Call Back Social History Tobacco Use Types Packs/Day Years [...] encounter Miscellaneous Notes * Telephone Encounter - Loretta GALLO - 02/12/2017 8:22 AM EDT [facility] * Telephone Encounter - Surinder Sanders MD - 02/11/2017 8:12 PM EDT Which pharmacy is used ??? * Telephone Encounter - Abigail Gibbons L.P.NLisa - 02/10/2017 8:52 AM EDT Wrong script sent pls sign new script / therapy qiuestions addresseed * Telephone Encounter - Duane Chen - 02/10/2017 8:36 AM EDT Caller requesting call back from provider: Is the caller the patient? YES Reason for call back: The patient has a referral for PT but she is unsure where she should go Caller offered to speak with the nurse for assistance: YES Response: Patient offered to speak with nurse for assistance and patient agreed. Message forwarded to nurse. documented in this encounter Plan of Treatment Not on file documented as of this encounter Visit Diagnoses Not on filedocumented in this encounter Care Teams [employer]et [employer] Relationship Specialty Start Date End Date Surinder Sanders MD PCP - General 04/19/1995 09/30/17 Karla Raymond MD PCP - General Internal Medicine 10/01/1712/17 Josefina Burden MD [address] [place] [address] PCP - General Internal Medicine 12/18/22 Cayla Tarango MD [address] [address] Specialist Neurosurgery 06/10/23 Brenda Alberto PA-C [address] [address] Specialist Neurosurgery 08/20/23 Louis Nolan PA-C 175 [facility] [address] [place] [address] Specialist Neurosurgery 08/20/23 documented as of this encounter
--- OUTSIDE RECORDS SUMMARY | 2025-01-13 11:03 | XMS_ITS | Encounter Summary ---
Author Organization [facility] Address [address] [place] [address] Care Team Providers Care Idea Man Name Role Phone Surinder Sanders MD Primary Care Provider Unavail able Karla Raymond MD Primary Care Provider U Josefina Caceres MD Primary Care Provider [phone] Cayla Tarango MD Unavailable [phone] Brenda Alberto PA-C Unavailable [phone] Louis Nolan PA-C Unavailable [phone] Reason for Visit * Reason Onset Date Comments Vaginal Bleeding 08/31/2012 Encounter Details Date Type Department Care Team Description 08/31/2012 Telephone OBGYN - [address] [address] Meek Lira MD Vaginal Bleeding Social History Tobacco Use Types Packs/Day Years Used Date Smoking Tobacco: Never Alcohol Use Standard Drinks/Week Comments No 0 (1 standard drink = 0.6 oz pur e alcohol) Sex Assigned at Date Recorded Not on file Job Start Date Occupation Industry Not on file Not on file Not on file documented as of this encounter Miscellaneous Notes * Telephone Encounter - Brenda Zack - 08/31/2012 12:44 PM EST Chief Complaint/problem: i told patient about going to e/r and she really doesn't want to go. Said she would like to speak to triage nurse. Told nurse gone to lunch will be back about 1.30. Please call jaun. How long has the patient had this problem? - Pt???s EVENTS AND PROMOTIONS ASSISTANT provider: Meek Lira MD Last menstrual period (LMP) or EDC (due date): N/A documented in this encounter Plan of Treatment Not on file documented as of this encounter Visit Diagnoses Not on filedocumented in this encounter Care Teams Idea Man Relationship Specialty Start Date End Date Surinder Sanders MD PCP - General 04/19/1995 09/30/17 Karla Raymond MD PCP - General Internal Medicine 10/01/1712/17 Josefina Burden MD [address] [place] [address] PCP - General Internal Medicine 12/18/22 Cayla Tarango MD [address] [address] Specialist Neurosurgery 06/10/23 Brenda Alberto PA-C [address] [address] Specialist Neurosurgery 08/20/23 Louis Nolan PA-C [address] [address] Specialist Neurosurgery 08/20/23 documented as of this encounter
--- OUTSIDE RECORDS SUMMARY | 2025-01-13 11:03 | XMS_ITS | Encounter Summary ---
Author Organization [facility] Address [address] [place] [address] Care Team Providers Care Fulling Mill Operator Name Role Phone Josefina Burden MD Primary Care Provider [phone] Cayla Tarango MD Unavailable [phone] Brenda Alberto PA-C Unavailable [phone] Louis Nolan PA-C Unavailable [phone] Encounter Details Date Type Department Care Team Description 06/11/2023 SCAN [facility] [place] [address] [phone] Cayla Tarango MD [address] [phone] Social History Tobacco Use Types Packs/Day Years [...] suspected to have Coronavirus/COVID-19? No / Unsure 06/04/2023 9:01 AM EDT documented as of this encounter Plan of Treatment Not on file documented as of this encounter Visit Diagnoses Not on filedocumented in this encounter Care Teams Fulling Mill Operator Relationship Specialty Start Date End Date Josefina Burden MD [address] [place] [address] PCP - General Internal Medicine 12/18/22 Cayla Tarango MD [address] [address] Specialist Neurosurgery 06/10/23 Brenda Alberto PA-C [address] [address] Specialist Neurosurgery 08/20/23 Louis Nolan PA-C 175 [facility] [address] [place] [address] Specialist Neurosurgery 08/20/23 documented as of this encounter
--- OUTSIDE RECORDS SUMMARY | 2025-01-13 11:03 | XMS_ITS | Encounter Summary ---
Author Organization [facility] Address [address] [place] [address] Care Team Providers Care Stencil Maker Name Role Phone Josefina Torre MD Primary Care Provider Cayla Tarango MD Unavailable [phone] Brenda Alberto PA-C Unavailable Louis Nolan PA-C Unavailable Reason for Visit * Reason Onset Date Comments hospital follow up 10/28/2023 Encounter Details Date Type Department Care Team Description 10/28/2023 Telephone Adult Medicine [address] [phone] Josefina Torre MD [address] [place] [phone] hospital follow up Social History Tobacco Use Types Packs/Day Years [...] encounter Miscellaneous Notes * Telephone Encounter - Ariadna Salmeron - 11/03/2023 9:20 AM EST Called pharmacy to see if the device,lancets and test strips were picked up and pharmacist Tyler ellison stated that all of it was picked up by patient on 05/21/23. Called patient back and shesaid she will call the pharmacy because she doesn't know what happened to it and she's not sure if it was even her that picked it up from the pharmacy. * Telephone Encounter - Josefina Torre MD - 10/31/2023 8:35 AM EST Yes can be done, please set up prescription * Telephone Encounter - Mook Ohara R.N - 10/29/2023 2:05 PM EST Spoke with pt. At insulin teach pt is feeling better . Pt was given lantus pen in hosp but using a friends glucometer lancets and test strip kit pt has hosp fu but not until 11/07/23 this there any way we can send pt these before appt Please review and advise * Telephone Encounter - Sunshine Reno L.P.NLisa - 10/29/2023 1:10 PM EST Message left on vm to call office at [phone] * Telephone Encounter - Cheryl Escobar - 10/29/2023 12:43 PM EST Patient is taking an antibiotic that ends today. She is asking if the infection should be checked to make sure it is gone. She is quite concerned. * Telephone Encounter - Dinorah Coburn R.N. - 10/28/2023 11:14 AM EST Pt booked with dr torre for 11/07 for TCM Pt needs instruction for insulin pen, she will come in for instrcution, * Telephone Encounter - Zulma Britton - 10/28/2023 10:07 AM EST Hospital follow up appointment needed Hospital patient was treated at: [facility] Was this only an ER visit or was the patient admitted to the hospital? Admitted to hospital Date of visit if ER visit only: N/A If patient was admitted what was the date of discharge? 10/26/23 Reason/diagnosis for visit or stay: pain in stomach, new diabetic, disoriented. Patient needs to beseen for her diabetes, has no idea how to test for diabetes. When was the patient told to follow up? WILLIAM Was visit or stay related to an injury? NO If yes, what was the date of injury (DOI)? N/A If yes, was the injury due to N/A documented in this encounter Plan of Treatment Not on file documented as of this encounter Visit Diagnoses Not on filedocumented in this encounter Care Teams Stencil Maker Relationship Specialty Start Date End Date Josefina Torre MD [address] [place] [address] PCP - General Internal Medicine 12/18/22 Cayla Tarango MD [address] [address] Specialist Neurosurgery 06/10/23 Brenda Alberto PA-C 175 [facility] [address] [place] [address] Specialist Neurosurgery 08/20/23 Louis Nolan PA-C 175 [facility] [address] [place] [address] Specialist Neurosurgery 08/20/23 documented as of this encounter
== END 2025-01-13 09:38 | disposition home or self-care (01) ==
LOC: HO.HNS 09:19
PROVIDERS: PCP Internal Medicine; Visit Provider Physician Assistant
DX: M54.16 Radiculopathy, lumbar region (principal)
CPT/HCPCS: 99024

== ENCOUNTER → 2025-01-13 09:18 | Outpatient (BNVA) | payer OTHER, SELFPAY | PROVIDERS: PCP Internal Medicine; Visit Provider Physician Assistant | DX: M54.16 Radiculopathy, lumbar region (principal); Z47.89 Encounter for other orthopedic aftercare; Z98.890 Other specified postprocedural states | CPT/HCPCS: 99212 ==

== ENCOUNTER 2025-02-21 09:37 | Outpatient (AMB) | payer OTHER, SELFPAY ==
--- NOTE | 2025-02-21 09:41 | A.SPINEOV_ITS ---
Intake Visit Reasons: 2nd post op Intake Note: Ms. Donaldson is here today for her 2nd post op appointment. Snow Plow Tractor Operator Required: No Allergies No Known Allergies Allergy (Verified 02/21/25 09:41) Assessment & Plan Assessment & Plan (1) Lumbar radiculopathy: Code(s): M54.16 - Radiculopathy, lumbar region Category: Medical Plan Procedure: Left L4-5 Laminotomy, Partial facetectomy and foraminotomy Alfonzo is a 59 year old female who underwent Left L4-5 Laminotomy, Partial fac etectomy and foraminotomy with Dr. Claire about 2 months ago. To recap she was initially seen in clinic for low back pain and left lower extremity radiculopathy. She was offered a left L4-5 lumbar decompression to address her radiculopathy. During her last visit she reported some continued radicular symptoms on the left side primarily with increased activity. Unfortunately, she continues to report some left-sided anterior thigh pain despite her low back pain essentially being completely resolved. We discussed the postoperative healing course and I answered any questions that she had. No new neurological deficits. The patient ambulates well and rises from a seated position without difficulty. Posterior incision site is closed and well healed. I would like to send Alfonzo for a course of physical therapy as she continues to report some left-sided anterior thigh pain. She may come back and see us after she completes physical therapy if her left-sided leg pain continues. We may need to order a repeat MRI to ensure there is no left-sided nerve impingement still there. Christopher Claire MD,PhD [facility] Orders: Orders PT Evaluation and Treatment Today M54.16 - Radiculopathy, lumbar region Coding Level of Care Code Global (88804) Diagnoses Lumbar radiculopathy M54.16
--- OUTSIDE RECORDS SUMMARY | 2025-02-21 10:29 | XMS_ITS | Clinical Summary ---
Author Organization [address] Address [address] [place] [phone] Phone Care Team Providers Care Sole Molder Name Role Phone Josefina Burden MD Primary Care Provider [phone] Allergies No known active allergies Medications pen [...] blood sugar 3 times daily 4 Active lidocaine (LIDODERM) 5 % patch APPLY 1 PATCH ONCE DAILY 3 Active metFORMIN (GLUCOPHAGE) 1,000 mg tablet TAKE ONE TABLET BY MOUTH TWICE A DAY WITH MEALS 180 tablet 1 4 Active IBU 600 mg tablet Take 1 [...] blood sugar). 2 each 5 4 Active docusate sodium (COLACE) 100 mg capsule 5 Active oxyCODONE (ROXICODONE) 5 mg immediate release tablet 5 Active insulin glargine (LANTUS SoloStar) 100 unit/mL (3 mL) injection pen Inject 8 Units under the skin at bedtime. 15 mL 3 5 Active alcohol swabs pads, medicated Apply topically 4 (four) times a day. 300 each 2 5 Active blood sugar diagnostic (FreeStyle Lite Strips) test strip Use as instructed 100 each 3 5 Active cholecalcifero l (VITAMIN D-3) 50 mcg (2,000 unit) capsule Take 1 capsule (2,000 Units total) by mouth 1 (one) time each day. 30 capsule 5 5 Active cyclobenzaprin e (FLEXERIL) 10 mg tabletIndicati ons:Spinal stenosis at L4-L5 level Take 1 tablet (10 mg total) by mouth at bedtime as needed for muscle spasms. 30 tablet 5 Active diclofenac (VOLTAREN) 1 % topical gel Apply 4 g topically 2 (two) times a day. 100 g 5 Active famotidine (PEPCID) 20 mg tablet Take 1 tablet (20 mg total) by mouth 2 (two) times a day. 30 tablet 5 5 Active gabapentin (NEURONTIN) 300 mg capsule Take 1 capsule (300 mg total) by mouth 3 (three) times a day. 90 capsule 3 5 Active hydrOXYzine HCL (ATARAX) 10 mg tablet Take 1 tablet (10 mg total) by mouth every 8 (eight) hours if needed for itching. 90 tablet 5 5 Active loratadine (CLARITIN) 10 mg tablet Take 1 tablet (10 mg total) by mouth 1 (one) time each day. 30 each 5 5 07/31/20 25 Active losartan (COZAAR) 25 mg tablet Take 1 tablet (25 mg total) by mouth 1 (one) time each day. 30 tablet 5 5 Active meclizine (ANTIVERT) 25 mg tablet Take 1 tablet (25 mg total) by mouth 3 (three) times a day if needed for dizziness. 90 tablet 5 5 Active blood sugar diagnostic (FreeStyle Lite Strips) test strip Use to check blood sugar 3 times daily 4 02/01/20 25 Discontinu ed(Reorder ) famotidine (PEPCID) 20 mg tablet Take 1 tablet (20 mg total) by mouth 2 (two) times a day. 4 02/01/20 25 Discontinu ed(Reorder ) hydrOXYzine HCL (ATARAX) 10 mg tablet Take 1 Tablet by mouth every 8 hours as needed for Itching. 4 02/01/20 Discontinu ed(Reorder ) losartan (COZAAR) 25 mg tablet Take 1 tablet (25 mg total) by mouth 1 (one) time each day. 02/01/20 25 Discontinu ed(Reorder ) meclizine (ANTIVERT) 25 mg tablet Take 1 Tablet by mouth every 8 hours as needed (dizziness/kenneth tigo). Medication may cause drowsiness, do not drive/operate machinery while taking 4 02/01/20 25 Discontinu ed(Reorder ) alcohol swabs pads, medicated Apply topically 4 (four) times a day. 300 each 2 4 02/01/20 25 Discontinu ed(Reorder ) cholecalcifero l (VITAMIN D-3) 50 mcg (2,000 unit) capsule Take 1 capsule (2,000 Units total) by mouth 1 (one) time each day. 90 capsule 1 4 02/01/20 25 Discontinu ed(Reorder ) gabapentin (NEURONTIN) 300 mg capsule Take 1 capsule (300 mg total) by mouth 3 (three) times a day. 90 capsule 2 4 02/01/20 25 Discontinu ed(Reorder ) loratadine (CLARITIN) 10 mg tablet Take 1 tablet (10 mg total) by mouth 1 (one) time each day. 90 each 1 4 02/01/20 25 Discontinu ed(Reorder ) cyclobenzaprin e (FLEXERIL) 10 mg tabletIndicati ons:Spinal stenosis at L4-L5 level Take 1 tablet (10 mg total) by mouth at bedtime as needed for muscle spasms. 30 tablet 5 02/01/20 25 Discontinu ed(Reorder ) diclofenac (VOLTAREN) 1 % topical gel Apply 4 g topically 2 (two) times a day. 100 g 5 02/01/20 25 Discontinu ed(Reorder ) Active Problems Problem Noted Date Diagnosed Date Unsatisfactory cervical Papanicolaou smear 02/02 Overview (02/02/2025): 01/27/25 - NILM/ HPV neg, repeat in 1 year 12/18/23 NILM/ HPV pos Pneumonia due to infectious organism 11/14/2024 Spondylolisthesis [...] Patient had lumbar spine MRI 05/27/[address] [place], MRI lumbar spine September 2023 [facility], both show severe central stenosis L4-5 [...] she is doing after the injection. Sacroiliitis ([facility] V24) 06/10/2023 Overview (08/05/2024): Last Assessment & Plan: [...] underwent a left hip bursa injection at [facility] on 09/03/2023 without improvement. She has been [...] Review of her lumbar spine MRI from [place] dated 05/27/2023 shows mild disc desiccation at [...] type diabetes mellitus with neurological manifestations, uncontrolled(250.62) ([facility] V24, [facility] V28) 04/09/2022 Microalbuminuria 02/15/2020 HTN (hypertension) 01/10/2017 Hallux valgus, acquired, bilateral 06/19/2016 Onychomycosis 06/19/2016 Severe obesity (BMI 35.0-39. 9) with comorbidity ([facility] V24, [facility] V28) 07/20/2012 Type 2 diabetes mellitus wit h diabetic neuropathy, without long-term current use of insulin ([facility] V24, [facility] V28) 02/26/2010 Pancreas cyst 01/29/2008 Overview (08/05/2024): [address] 12/25; The larger appears to be a lipoma ; The second is too small to differentiate . Repeat CT is ordered for 4 months from now . Pt has been ref to GI Resolved Problems Problem Noted Date Diagnosed Date Resolved Date Orthostatic hypotension 11/13/202410/21 Encounters Date Type Department Care Team Description 02/10/2025 Telephone Internal Medicine - [place] [address] [place] [address] Luisa Kaur RN 02/08/2025 Telephone Gastroenterology - [place] [address] [place] [address] Alexei Bui MD 01/27/2025 2:30 PM EDT Office Visit Obstetrics and Gynecology - [place] [address] [place] [phone] Kim Young CNM Encounter for gynecological examination without abnormal finding (Primary Dx); Elevated blood pressure reading; History of abnormal cervical Pap smear; Screening for cervical cancer; Vitiligo 01/05/2025 9:30 AM EDT Office Visit Endocrinology [address] [phone] Cayla Mendoza PA Type 2 diabetes mellitus with diabetic neuropathy, without long-term current use of insulin (CMS/HCC V24, CMS/HCC V28) (Primary Dx); Secondary hypertension 01/04/2025 8:30 AM EDT Office Visit [address] [phone] Josefina Burden MD Hospital discharge follow-up (Primary Dx); Spinal stenosis at L4-L5 level; S/P lumbar laminectomy; Left hip pain; Trochanteric bursitis of left hip 12/30/2024 10:30 AM EDT Consult [address] [phone] Josefina Burden MD Preop examination (Primary Dx); Primary hypertension; Type 2 diabetes mellitus with diabetic neuropathy, without long-term current use of insulin (CMS/HCC V24, CMS/HCC V28) 11/25/2024 12:30 PM EST Office Visit [address] [phone] Jsoefina Burden MD Hospital discharge follow-up (Primary Dx); Spinal stenosis at L4-L5 level; Pneumonia due to infectious organism, unspecified laterality, unspecified part of lung; Type 2 diabetes mellitus with diabetic neuropathy, without long-term current use of insulin ([facility] V24, [facility] V28); Hypomagnesemia; Recurrent UTI from Last 3 Months Immunizations Name Administration [...] Surgery Date Site/Laterality Comments ESOPHAGOGASTRODUODENOSCOPY 03/23/08 PROCEDURE: MS EGD TRANSORAL BIOPSY SINGLE/MULTIPLE; COMMENT: Small hiatal hernia, gastritis-bx: chronic gastritis, HPylori+ OTHER SURGICAL HISTORY 08/22/08 PROCEDURE: GI ENDOSCOPIC ULTRASOUND; COMMENT: mild fatty changes in the liver, slightly atrophic body /tail pancreas. No pathology. OTHER SURGICAL HISTORY PROCEDURE: MS LIG/TRNSXJ FLP TUBE ABDL/VAG APPR UNI/BI SECTION PROCEDURE: MS DELIVERY ONLY; COMMENT: x3 COLONOSCOPY 2014 PROCEDURE: HISTORICAL COLONOSCOPY; COMMENT: normal Medical History Medical History Date Comments Obesity 07/20/2012 DX:Obesity Diabetes mellitus type II DX:Suzy betes mellitus type II Onychomycosis 06/19/2016 DX:Onychomycosis Hallux valgus, acquired, bilateral 06/19/2016 DX:Hallux valgus, acquired, bilateral Weight loss DX:Weight loss Decreased appetite DX:Decreased appetite Bilateral upper abdominal discomfort DX:Bilateral upper abdominal discomfort Back pain DX:Back pain Abnormal Pap smear of cervix Family History Medical History Relation Name Comments Diabetes Mother Breast cancer Neg Hx Colon cancer Neg Hx Ovarian cancer Neg Hx Relation Name Status Comments Brother 1 Alive Brother 2 suicide Daughter 1 Tram Alive Daughter 2 Yarely Alive Father bite infection in [place] Mother Alive Sister 1 Alive Sister 2 [...] 11/13/2024 1: 54 AM EST Obstetrics History Para Term AB IAB SAB Ectopic Multiple Livin g Live Births 3 3 3 3 3 Date Outcome GA Total Labor Labor/2nd/3rd Weight Sex Type Anes PTL Kylah A1 A5 Name Clin Term CS-Un spec Living Term CS-Un spec Living Term CS-Un spec Living Last Filed Vital Signs Vital Sign Reading Time Taken Comments Blood Pressure 171/82 01/27/2025 2:59 PM EDT Pulse 82 01/27/2025 2:33 PM EDT Temperature 36.2 ??C (97.2 ??F) 01/05/2025 9:31 AM ED T Respiratory Rate 18 01/27/2025 2:33 PM EDT Oxygen Saturation 99% 01/05/2025 9:31 AM EDT Inhaled Oxygen Concentration - - Weight 82.6 kg (182 lb) 01/27/2025 2:33 PM EDT Height 160 cm (5' 3 ) 01/27/2025 2:33 PM EDT Body Mass Index 32.24 01/27/2025 2:33 PM EDT Plan of Treatment Upcoming Encounters Date Type Department Care Team (Late st Contact Info) Description 04/06/2025 8:00 AM EDT Office Visit Adult Medicine [place] - [address] [phone] Aurelia Corley PA [address] [place] [address] 04/19/2025 7:40 AM EDT Appointment Radiology Department - [address] [phone] 04/19/2025 11:00 AM EDT Office Visit Urogynecology - [place] [address] [place], [place] [phone] Rose Petersen MD [address] [facility] [address] [place] [address] 05/03/2025 7:30 AM EDT Appointment [facility] [address] [place] [phone] Gomez Farr, [address] [facility] [address] [place] [address] 07/08/2025 8:45 AM EDT Office Visit Endocrinology - [place] [address] [place], [place] [phone] Cayla Mendoza PA [address] [place] [address] Health Maintenance Due Date Last Done Comments [...] (2 of 2) 11/25/2022 09/30/2022 RSV Immunization Adult Patients (1 - Risk 60-74 years 1-dose series) [...] 04/09/2026 04/09/20, 04/09/2024, 03/28/2023, Additional history exists Cholesterol Screening (Lipid Panel) 12/30/2029 12/30/2024, 01/30/2024 Cervical Cancer Screening: HPV 01/27/2030 01/27/2025, 2023 DTaP,Tdap,and Td Vaccines (3 - Td or [...] age to complete this topic Meningococcal B Vaccine Aged Out No l onger eligible based on patient's age to complete this topic RSV Immunization Patients Under 20 months Aged Out No longer eligible based on patient's age to complete this topic Varicella Vaccines Aged Out No longer eligible based on patient's age to complete this topic Procedures Procedure Name Priority Date/Time Associated Diagnosis Comments PAP SMEAR Routine 01/27/2025 3:14 PM EDT Screening for cervical cancer HPV WITH REFLEX GENOTYPE Routine 01/27/2025 3:14 PM EDT Screening for cervical cancer POC GLUCOSE Routine 01/05/2025 10:12 AM EDT Type 2 diabetes mellitus with diabetic neuropathy, without long-term current use of insulin ([facility] V24, [facility] V28) CBC WITH AUTO DIFFERENTIAL Routine 12/30/2024 10:08 AM EDT Pneumonia due to infectious organism, unspecified laterality, unspecified part of lung COMPREHENSIVE METABOLIC PANEL Routine 12/30/2024 10:08 AM EDT Type 2 diabetes mellitus with diabetic neuropathy, without long-term current use of insulin ([facility] V24, [facility] V28) HEMOGLOBIN A1C Routine 12/30/2024 10:08 AM EDT Type 2 diabetes mellitus with diabetic neuropathy, without long-term current use of insulin ([facility] V24, [facility] V28) LIPID PANEL WITH REFLEX TO DIRECT LDL Routine 12/30/2024 10:08 AM EDT Type 2 diabetes mellitus with diabetic neuropathy, without long-term current use of insulin ([facility] V24, [facility] V28) MICROALBUMIN CREATININE URINE RATIO Routine 12/30/2024 10:08 AM EDT Type 2 diabetes mellitus with diabetic neuropathy, without long-term current use of insulin ([facility] V24, [facility] V28) CBC AND DIFFERENTIAL Routine 12/30/2024 10:08 AM EDT Pneumonia due to infectious organism, unspecified laterality, unspecified part of lung MAGNESIUM Routine 12/30/2024 10:08 AM EDT Hypomagnesemia ECG 12-LEAD Routine 12/30/2024 8:54 AM EDT EXTERNAL XRAY REPORT 12/23/2024 EXTERNAL XRAY REPORT 12/23/2024 SCREENING MAMMOGRAPHY BI 2-VIEW BREAST INC CAD Routine 04/09/2024 7:39 AM EDT Encounter for screening mammogram for malignant neoplasm of breast COLONOSCOPY Routine 02/06/2015 HEPATITIS C SCREENING Routine 07/13/2013 from Last 3 Months or Most Recently Relevant to Health Maintenance Results * HPV with reflex genotype (01/27/2025 3:14 PM EDT) HPV Negative Negative LAB MICROBIOLOGY METHOD 01/28/2025 12:59 PM EDT [facility] Brushing/Spatula Cervix uteri structure / Unknown 01/27/2025 3:14 PM EDT 01/28/2025 6:12 AM EDT Kim Young [facility] MOLECULAR DIAGNOSTICS O RDERABLES Final Result [facility] [address] [place] [id number], * Pap smear (01/27/2025 3:14 PM EDT) Interpretation Negative for intraepithelial lesion or malignancy 01/31/2025 10:51 AM EDT [facility] General Categorization Negative 01/31/2025 10:51 AM EDT [facility] Specimen Adequacy Satisfactory for evaluation, endocervical/cho sformation zone component absent 01/31/2025 10:51 AM EDT [facility] Pap Methodology Liquid Based Pap Test 01/31/2025 10:51 AM EDT [facility] Disclaimer The Pap test is a screening test which carries an inherent false negative rate. These test results should be correlated with the patient's clinical findings and history. This Pap test was processed using an automated screening system. Technical cytopathology services provided by [facility], at [address] [place] [id number] (CLIA # [id number]/Morris Webb MD, Dairy Technologist.) 01/31/2025 10:51 AM EDT [facility] Console Pap Interpretation Reported 01/31/2025 10:51 AM EDT [facility] Brushing/Spatula Cervix uteri structure / Unknown 01/27/2025 3:14 PM EDT 01/27/2025 3:14 PM EDT Kim Young [facility] CYTOLOGY ORDERABLES Fin al Result [facility] [address] [place] [address], [place] [phone] * POC glucose manually resulted (01/05/2025 10:12 AM EDT) Glucose POC 102 mg/dL Comment:NON FASTING Blood Capillary blood specimen / Unknown 01/05/2025 10:12 AM EDT Cayla HARTMAN POINT OF CARE TEST ENTER/ED IT ORDERABLES Final Result * Lipid panel with reflex to direct LDL (12/30/2024 10:08 AM EDT) Cholesterol 122 0 - 200 mg/dL LAB CHEMISTRY METHOD 12/30/2024 12:51 PM EDT [facility] Triglycerides 71 0 - 150 mg/dL LAB CHEMISTRY METHOD 12/30/2024 12:51 PM EDT [facility] HDL 69 >=40 mg/dL LAB CHEMISTRY METHOD 12/30/2024 12:51 PM EDT [facility] LDL Calculated 39 0 - 100 mg/dL LAB CHEMISTRY METHOD 12/30/2024 12:51 PM EDT [facility] VLDL Cholesterol Yordan 14.2 mg/dL LAB CHEMISTRY METHOD 12/30/2024 12:51 PM EDT [facility] Non HDL Chol. (LDL+VLDL) 53 <145 mg/dL LAB CHEMISTRY METHOD 12/30/2024 12:51 PM EDT [facility] Chol/HDL Ratio 1.8 0.0 - 4.4 LAB CHEMISTRY METHOD 12/30/2024 12:51 PM T [facility] Blood Venous blood specimen / Unknown Venipuncture / Unknown 12/30/2024 10:08 AM EDT 12/30/2024 10:08 AM EDT us Josefina Burden MD LAB BLOOD ORDERABLES Final Resul t [facility] [address] [place] [address], * (ABNORMAL) CBC auto differential (12/30/2024 10:08 AM EDT) WBC 3.7(L) 4.8 - 10.8 K/mcL LAB HEMETOLOGY METHOD 12/30/2024 12:23 PM [facility] RBC 3.80 3.80 - 4.80 M/mcL LAB HEMETOLOGY METHOD 12/30/2024 12:23 PM [facility] Hemoglobin 9.4(L) 11.5 - 16.0 g/dL LAB HEMETOLOGY METHOD 12/30/2024 12:23 PM [facility] Hematocrit 29.0(L) 35.0 - 47.0 % LAB HEMETOLOGY METHOD 12/30/2024 12:23 PM T [facility] MCV 75.5(L) 79.0 - 98.0 FL LAB HEMETOLOGY METHOD [facility]24 [facility] MCH 24.5(L) 27.0 - 32.0 pcg LAB HEMETOLOGY METHOD 12/30/2024 12:23 PM [facility] MCHC 32.4 32.0 - 37.0 g/dL LAB HEMETOLOGY METHOD 12/30/2024 12:23 PM [facility] RDW 15.7(H) 11.0 - 15.0 % LAB HEMETOLOGY METHOD 12/30/2024 12:23 PM [facility] Platelets 284 130 - 400 K/mcL LAB HEMETOLOGY METHOD 12/30/2024 12:23 PM [facility] MPV 9.6 7.0 - 11.0 FL LAB HEMETOLOGY METHOD 12/30/2024 12:23 PM [facility] NRBC 0.0 <1.0 % LAB HEMETOLOGY METHOD 12/30/2024 12:23 PM [facility] NRBC Absolute 0.00 <0.10 K/mcL LAB HEMETOLOGY METHOD 12/30/2024 12:23 PM [facility] Neutrophils Relative 39.8 % LAB HEMETOLOGY METHOD 12/30/2024 12:23 PM [facility] Lymphocytes Relative 44.1 % LAB HEMETOLOGY METHOD 12/30/2024 12:23 PM [facility] Monocytes Relative 12.3 % LAB HEMETOLOGY METHOD 12/30/2024 12:23 PM [facility] Eosinophils Relative 2.5 % LAB HEMETOLOGY METHOD 12/30/2024 12:23 PM [facility] Basophils Relative 0.8 % LAB HEMETOLOGY METHOD 12/30/2024 12:23 PM [facility] Immature Granulocytes Relative 0.5 % LAB HEMETOLOGY METHOD 12/30/2024 12:23 PM [facility] Neutrophils Absolute 1.46(L) 1.50 - 7.00 K/mcL LAB HEMETOLOGY METHOD 12/30/2024 12:23 PM [facility] Lymphocytes Absolute 1.62 1.00 - 5.00 K/mcL LAB HEMETOLOGY METHOD 12/30/2024 12:23 PM EDT [facility] Monocytes Absolute 0.45 0.20 - 1.00 K/mcL LAB HEMETOLOGY METHOD 12/30/2024 12:23 PM EDT [facility] Eosinophils Absolute 0.09 0.00 - 0.50 K/[facility] LAB HEMETOLOGY METHOD 12/30/2024 12:23 PM EDT [facility] Basophils Absolute 0.03 0.00 - 0.20 K/[facility] LAB HEMETOLOGY METHOD 12/30/2024 12:23 PM EDT [facility] Immature Granulocytes Absolute 0.02 0.00 - 0.03 K/[facility] LAB HEMETOLOGY METHOD 12/30/2024 12:23 PM EDT [facility] Blood Venous blood specimen / Unknown Venipuncture / Unknown 12/30/2024 10:08 AM EDT 12/30/2024 10:08 AM EDT us Josefina Burden MD LAB BLOOD ORDERABLES Final Resul t [facility] [address] [place] [address], * Microalbumin creatinine urine ratio (12/30/2024 10:08 AM EDT) Creatinine, Urine 143.0 mg/dL LAB CHEMISTRY METHOD 12/30/2024 1:06 PM EDT [facility] Microalb, Ur 11.3 0.0 - 29.0 mg/L LAB CHEMISTRY METHOD 12/30/2024 1:06 PM EDT [facility] Microalb/Creat Ratio 8 <30 mg/g creat LAB CHEMISTRY METHOD 12/30/2024 1:06 PM EDT [facility] Urine Urine specimen obtained by clean catch procedure / Unknown Non-blood Collection / Unknown 12/30/2024 10:08 AM EDT 12/30/2024 10:08 AM EDT us Josefina Burden MD LAB URINE ORDERABLES Final Resul t Performing Organization Address City/[facility]/ZIP Co de Phone Number [facility] [address] [place] [address], [place] [phone] * (ABNORMAL) Magnesium (12/30/2024 10:08 AM EDT) Pathologist [facility] Magnesium 1.8(L) 1.9 - 2.6 mg/dL LAB CHEMISTRY METHOD 12/30/2024 12:47 PM EDT [facility] Blood Venous blood specimen / Unknown Venipuncture / Unknown 12/30/2024 10:08 AM EDT 12/30/2024 10:08 AM EDT us Josefina Burden MD LAB BLOOD ORDERABLES Final Resul t Performing Organization Address [facility] Co de Phone Number [facility] [address] [place] [address], [place] [phone] * Hemoglobin A1c (12/30/2024 10:08 AM EDT) [facility] Hemoglobin A1C 6.3 <6.5 % LAB CHEMISTRY METHOD 12/30/2024 2:59 PM EDT [facility] Mean Bld Glu Estim. 134 mg/dL LAB CHEMISTRY METHOD 12/30/2024 2:59 PM EDT [facility] Blood Venous blood specimen / Unknown Venipuncture / Unknown 12/30/2024 10:08 AM EDT 12/30/2024 10:08 AM EDT us Josefina Burden MD LAB BLOOD ORDERABLES Final Resul t Performing Organization Address City/[facility]/ZIP Co de Phone Number [facility] [address] [place] [address], [place] [phone] * (ABNORMAL) Comprehensive metabolic panel (12/30/2024 10:08 AM EDT) Sodium 139 133 - 145 mmol/L LAB CHEMISTRY METHOD 12/30/2024 12:51 PM [facility] Potassium 4.4 3.5 - 5.5 mmol/L LAB CHEMISTRY METHOD 12/30/2024 12:51 PM [facility] Chloride 105 96 - 110 mmol/L LAB CHEMISTRY METHOD 12/30/2024 12:51 PM [facility] CO2 28 21 - 32 mmol/L LAB CHEMISTRY METHOD 12/30/2024 12:51 PM [facility] Anion Gap 6 3 - 11 LAB CHEMISTRY METHOD 12/30/2024 12:51 PM [facility] Glucose 117(H) 70 - 100 mg/dL LAB CHEMISTRY METHOD 12/30/2024 12:51 PM [facility] BUN 26(H) 5 - 25 mg/dL LAB CHEMISTRY METHOD 12/30/2024 12:51 PM [facility] Creatinine 0.96 0.50 - 1.10 mg/dL LAB CHEMISTRY METHOD 12/30/2024 12:51 PM [facility] eGFR 67 >=60 mL/min/1. 73m2 LAB CHEMISTRY METHOD 12/30/2024 12:51 PM [facility] Comment:Calculation based on the??Chronic Kidney Disease Epidemiology Collaboration (CKD-EPI) equation refit??without adjustment for race. BUN/Creatinine Ratio 27.1 LAB CHEMISTRY METHOD 12/30/2024 12:51 PM [facility] Calcium 9.2 8.5 - 10.5 mg/dL LAB CHEMISTRY METHOD 12/30/2024 12:51 PM [facility] AST (SGOT) 25 10 - 42 unit/L LAB CHEMISTRY METHOD 12/30/2024 12:51 PM [facility] ALT (SGPT) 32 10 - 60 unit/L LAB CHEMISTRY METHOD 12/30/2024 12:51 PM EDT [facility] Alkaline Phosphatase 82 42 - 121 unit/L LAB CHEMISTRY METHOD 12/30/2024 12:51 PM EDT [facility] Total Protein 7.2 6.0 - 8.0 g/dL LAB CHEMISTRY METHOD 12/30/2024 12:51 PM EDT [facility] Albumin 3.9 3.2 - 5.0 g/dL LAB CHEMISTRY METHOD 12/30/2024 12:51 PM EDT [facility] Total Bilirubin 0.4 0.0 - 1.4 mg/dL LAB CHEMISTRY METHOD 12/30/2024 12:51 PM EDT [facility] Blood Venous blood specimen / Unknown Venipuncture / Unknown 12/30/2024 10:08 AM EDT 12/30/2024 10:08 AM EDT Josefina Burden MD LAB BLOOD ORDERABLES Final Resul t [facility] [address] [place] [address], * ECG 12 lead (12/30/2024 8:54 AM EDT) Historical Provider ECG ORDERABLES Final Res ult * External Xray Report (12/23/2024) Only the most recent of2 resultswithin the time period is included. Anatomical Region Laterality Modality Radiographic Radha ging Provider [facility] IM[facility] XR PROCEDURES Final Result * SCREENING MAMMOGRAPHY BI 2-VIEW [...] MD IMG XR PROCEDURES Final Result * Colonoscopy (02/06/2015) Colonoscopy no interpreta tion,abstr acted Anatomical Region Laterality Modality Other Historical Provider HEALTH MAINTENANCE Final Result * Hepatitis C Screening (07/13/2013) Hepatitis C Screening abstracted Historical Provider HEALTH MAINTENANCE Final Result from Last 3 Months or Most Recently Relevant to Health Maintenance Insurance [facility] Advance Directives * Full Code - Default [...] currently active code status orders. Care Teams Sole Molder Relationship Specialty Start Date End Date Josefina Burden MD [address] [place] [id number] PCP - General Internal Medicine 12/18/22
== END 2025-02-21 09:58 | disposition home or self-care (01) ==
LOC: HO.HNS 09:37
PROVIDERS: PCP Internal Medicine; Visit Provider Physician Assistant
DX: M54.16 Radiculopathy, lumbar region (principal)
CPT/HCPCS: 99024

== ENCOUNTER → 2025-02-21 09:37 | Outpatient (BNVA) | payer OTHER, SELFPAY | PROVIDERS: PCP Internal Medicine; Visit Provider Physician Assistant | DX: M54.16 Radiculopathy, lumbar region (principal) | CPT/HCPCS: 99212 ==

== ENCOUNTER 2025-04-11 08:59 | Outpatient (AMB) | payer OTHER, SELFPAY ==
--- NOTE | 2025-04-11 09:12 | HO.SPINEOV ---
Intake Visit Reasons: 6 weeks f/up after PT Intake Note: Ms. Donaldson is here today for a F/u visit after Physical Therapy. Compactor Driver Required: No Allergies No Known Allergies Allergy (Verified 04/11/25 09:13) Assessment & Plan Assessment & Plan (1) Lumbar radiculopathy: Code(s): M54.16 - Radiculopathy, lumbar region Category: Medical Plan: Procedure: Left L4-5 Laminotomy, Partial facetectomy and foraminotomy Date of operation: 12/23/24 Alfonzo is a pleasant 59-year-old female who comes in today for subsequent follow-up/evaluation after completing a course of physical therapy. To recap Alfonzo continued to report left-sided anterior thigh pain despite her low back pain essentially being completely resolved by her 2nd postoperative visit. She now states that her left posterior calf is involved with the shooting pain down her leg as well. She also have what she describes as worsening numbness of her left foot. She states previously she had a mild tingling sensation near the toes, but not it feels like there is numbness / tingling all the way back toward her heel. Thankfully, Alfonzo reports that physical therapy has been helpful to keep her back pain under control. She does report that directly after physical therapy she will have a mild flare-up of low back pain, but always feels much better the day after she does her stretching / exercises. This is a pleasant pleasant 59-year-old female who comes in today for subsequent follow-up/evaluation after completing a course of physical therapy. She is s/p Left L4-5 Laminotomy, Partial facetectomy and foraminotomy on 12/23/24. She was sent for a course of PT due to persistent left leg pain after surgery. This only seems to have helped her back pain, the leg pain actually seems to have worsened and is now accompanied by worsening left foot numbness. I would like to order a repeat lumbar MRI with gadolinium to rule out a continued or new nerve impingement since the surgery. Her last MRI is from 2022 but did show a grade 1 spondy at L4-5. I would be surprised if this has worsened at all given she has no back pain. Christopher Claire MD,PhD [facility] Orders: Orders MR lumbar spine wo/w con Today M54.16 - Radiculopathy, lumbar region Coding Level of Care Code Global (99786) Diagnoses Lumbar radiculopathy M54.16
--- OUTSIDE RECORDS SUMMARY | 2025-04-11 09:36 | XMS_ITS | Encounter Summary ---
Author Organization [facility] Address [address] [place] [address] Care Team Providers Care Tanker Driver Name Role Phone Josefina Burden MD Primary Care Provider [phone] Cayla Tarango MD Unavailable [phone] Brenda Alberto PA-C Unavailable [phone] Louis Nolan PA-C Unavailable [phone] Encounter Details Date Type Department Care Team Description 12/12/2023 Orders Only [facility] Medical [facility] Neurosurgery [place] [address] [phone] Cayla Tarango MD [address] [id number] Sacroiliitis (HCC) Social History Tobacco Use Types Packs/Day Years [...] on file documented as of this encounter Procedures Procedure Name Priority Date/Time Associated Diagnosis Comments CO INJECT SI JOINT ARTHRGRPHY&/ANES/STEROID W/SABA Routine 12/11/2023 Sacroiliitis (HCC) documented in this encounter Results * CO INJECT SI JOINT ARTHRGRPHY&/ANES/STEROID W/SABA (12/11/2023) 12/11/2023 Cayla Tarango MD PERFORMABLES documented in this encounter Visit Diagnoses Diagnosis Sacroiliitis (HCC) Sacroiliitis, not elsewhere classified documented in this encounter Care Teams Tanker Driver Relationship Specialty Start Date End Date Josefina Burden MD [address] [place] [address] PCP - General Internal Medicine 12/18/22 Cayla Tarango MD [address] [phone] Specialist Neurosurgery 06/10/23 Brenda Alberto PA-C [address] [id number] Specialist Neurosurgery 08/20/23 Louis Nolan PA-C [address] [address] Specialist Neurosurgery 08/20/23 documented as of this encounter
== END 2025-04-11 09:33 | disposition home or self-care (01) ==
LOC: HO.HNS 08:59
PROVIDERS: PCP Internal Medicine; Visit Provider Physician Assistant
DX: M54.16 Radiculopathy, lumbar region (principal)
CPT/HCPCS: 99213

== ENCOUNTER → 2025-04-11 08:59 | Outpatient (BNVA) | payer OTHER, SELFPAY | PROVIDERS: PCP Internal Medicine; Visit Provider Physician Assistant | DX: M54.16 Radiculopathy, lumbar region (principal) | CPT/HCPCS: 99212 ==

== ENCOUNTER 2025-05-11 13:30 | Outpatient (REF) | payer OTHER, SELFPAY ==
--- NOTE | ~2025-05-11 | MR_ITS ---
EXAMINATION: MR LUMBAR SPINE WITHOUT AND WITH CONTRAST CLINICAL INFORMATION: Left-sided numbness, history of lumbar spine surgery in December 2024. Continued shooting pain down left leg despite decompression surgery. COMPARISON: No prior available. TECHNIQUE: Multiplanar multisequence MR imaging of the lumbar spine was done both before and after the administration of 8.5 mL IV Gadavist contrast. Examination was performed on a 1.5 Micaela Siemens high-field magnet, utilizing standard sequences. FINDINGS: CORONAL ALIGNMENT: -Normal. SAGITTAL ALIGNMENT: -Normal lordosis. -There is a 2 mm anterolisthesis of L4 upon L5. -Alignment is otherwise anatomic. LUMBOSACRAL JUNCTION: -Normal. There are 5 [id number] lumbar-type vertebral bodies. VERTEBRAL BODIES/BONE MARROW: -There has been an recent left hemilaminotomy and microdiscectomy at L4-5. There is expected postoperative enhancement along the surgical tract. No abscess identified. -No vertebral body or bone marrow edema or abnormal bone marrow enhancement identified. -No abnormal infiltrating bone marrow signal. DISCS: -Loss of disc signal at L4-5 without significant loss of disc height. -Mild loss of disc signal at L3-4 without significant loss of disc height. -Remainder of the intervertebral lumbar discs appear normal. SPINAL CANAL: -No abnormal developmental findings. CONUS MEDULLARIS: -Terminates at L1. Morphology and signal is normal. INTRADURAL NERVE ROOTS: - No nerve root clumping, abnormal enhancement, or mass. Axial Disc Space Images: T12-L1: No central canal or neural foraminal narrowing. Normal facets. L1-L2: No central canal or neural foraminal narrowing. Normal facets. L2-L3: No central canal or neural foraminal narrowing. Minimal bilateral facet degeneration. L3-L4: There is a shallow bulging disc with superimposed left far lateral and foraminal protrusion of disc material. There are mild to moderate hypertrophic degenerative facet changes bilaterally, with posterior ligamentous infolding/thickening. Combination of findings is resulting in mild central canal narrowing, mild left subarticular recess narrowing, and moderate left neural foraminal narrowing. There is mild right neural foraminal narrowing. There is contact but no definite impingement of the exiting left L3 nerve root. L4-L5: Left hemilaminotomy and stripping of the left ligamentum flavum along with microdiscectomy. Expected postoperative enhancement along the lateral dorsal dural margin consistent with granulation tissue. No recurrent or new disc herniation. There is a mild residual concentric bulging disc extending into both foraminal zones. There are moderate bilateral hypertrophic degenerative facet changes with facet joint effusions. There is right ligamentous thickening/infolding. Combination of findings is resulting in mild to moderate central canal narrowing, moderate right subarticular recess narrowing, mild left subarticular recess narrowing, and moderate bilateral neural foraminal narrowing with contact but no definite impingement of the bilateral exiting L4 roots. L5-S1: There is a small right foraminal disc protrusion with annular fissuring. There are mild degenerative hypertrophic facet changes bilaterally. There is mild posterior ligamentous thickening/infolding. There is no central canal narrowing or subarticular recess narrowing. There is mild bilateral neural foraminal narrowing right greater than left. IMAGED SI JOINTS: Mild degenerative arthrosis bilaterally. PARAVERTEBRAL AND INCLUDED EXTRASPINAL SOFT TISSUES: -Expected postoperative enhancement along the left paraspinous surgical tract. -Imaged retroperitoneal contents appear normal. Aorta is normal in caliber. MR/MR lumbar spine wo/w con IMPRESSION: 1. Postoperative left hemilaminotomy and microdiscectomy at L4-5, without recurrent disc herniation identified. There has been decompression of the left subarticular recess. There is mild to moderate residual central canal narrowing at this level, and moderate bilateral neural foraminal narrowing with contact but no definite impingement of the exiting L4 roots. 2. At L5-S1 there is a small right foraminal disc protrusion with annular fissuring. There is mild right greater than left neural foraminal narrowing. 3. At L3-4, there is a left far lateral and foraminal protrusion of disc material, resulting in moderate left neural foraminal narrowing. There is contact but no definite impingement of the exiting left L3 nerve root. 4. See the body of the report for details. Electronically signed by: Marcellus Braswell MD 05/11/2025 03:05 PM EDT
--- OUTSIDE RECORDS SUMMARY | 2025-05-11 14:04 | XMS_ITS | Clinical Summary ---
Author Organization [address] Address [address] [place] [phone] Phone Care Team Providers Care Overhead Door Technician Name Role Phone Josefina Burden MD Primary Care Provider [phone] Allergies No known active allergies Medications pen needle, diabetic (BD Ultra-Fine Bhavana Pen Needle) 32 gauge x 5/32 needle USE TO INJECT INSULIN FOUR TIMES A DAY 10/27/19 24 Active blood-glucose meter kit 1 Units by Does not apply route daily. Use to check blood sugar daily 03/25/20 24 Active blood-glucose meter (BLOOD GLUCOSE MONITORING MISC) Use to check blood sugar once daily 05/05/20 23 Active FREESTYLE LANCETS MISC Use to check blood sugar 3 times daily 03/25/20 24 Active lidocaine (LIDODERM) 5 % patch APPLY 1 PATCH ONCE DAILY 07/27/20 23 Active IBU 600 mg tablet Take 1 tablet (600 mg total) by mouth every 6 (six) hours. 04/17/20 24 Active latanoprost (XALATAN) 0.005 % ophthalmic solution Administer 1 drop into both eyes at bedtime. 08/11/20 24 Active insulin lispro (HumaLOG KwikPen Insulin) 100 unit/mL injection pen Inject 3 times a day with meals per scale 200 to 249 2 units ;250 to 299 4 units; 300 to 349 6 units; 350 to 400 8 units; Above 400 Call MD 15 mL 5 10/05/20 24 Active glucagon (Gvoke HypoPen 2-Pack) 0.5 mg/0.1 mL auto-injector Inject 0.5 mg under the skin if needed (low blood sugar). 2 each 10/05/20 24 Active docusate sodium (COLACE) 100 mg capsule 12/24/19 25 Active oxyCODONE (ROXICODONE) 5 mg immediate release tablet 12/24/19 25 Active insulin glargine (LANTUS SoloStar) 100 unit/mL (3 mL) injection pen Inject 8 Units under the skin at bedtime. 15 mL 3 01/06/20 25 Active alcohol swabs pads, medicated Apply topically 4 (four) times a day. 300 each 02/02/20 25 Active cholecalciferol (VITAMIN D-3) 50 mcg (2,000 unit) capsule Take 1 capsule (2,000 Units total) by mouth 1 (one) time each day. 30 capsule 02/02/20 25 Active famotidine (PEPCID) 20 mg tablet Take 1 tablet (20 mg total) by mouth 2 (two) times a day. 30 tablet 02/02/20 25 Active gabapentin (NEURONTIN) 300 mg capsule Take 1 capsule (300 mg total) by mouth 3 (three) times a day. 90 capsule 02/02/20 25 Active hydrOXYzine HCL (ATARAX) 10 mg tablet Take 1 tablet (10 mg total) by mouth every 8 (eight) hours if needed for itching. 90 tablet 02/02/20 25 Active loratadine (CLARITIN) 10 mg tablet Take 1 tablet (10 mg total) by mouth 1 (one) time each day. 30 each 02/02/20 25 025 Active losartan (COZAAR) 25 mg tablet Take 1 tablet (25 mg total) by mouth 1 (one) time each day. 30 tablet 02/02/20 25 Active meclizine (ANTIVERT) 25 mg tablet Take 1 tablet (25 mg total) by mouth 3 (three) times a day if needed for dizziness. 90 tablet 02/02/20 25 Active blood sugar diagnostic (FreeStyle Lite Strips) test stripIndications: Other diabetic neurological complication associated with type 2 diabetes mellitus (CMS/HCC V24, CMS/HCC V28) Used to test blood sugar three times a day. 200 each 03/08/20 25 Active metFORMIN (GLUCOPHAGE) 1,000 mg tablet TAKE ONE TABLET BY MOUTH TWICE A DAY WITH MEALS 180 tablet 03/30/20 25 Active diclofenac (VOLTAREN) 1 % topical gel Apply 4 g topically 2 (two) times a day. 100 g 1 04/06/20 25 Active cyclobenzaprine (FLEXERIL) 10 mg tabletIndications :Spinal stenosis at L4-L5 level Take 1 tablet (10 mg total) by mouth at bedtime as needed for muscle spasms. 30 tablet 2 04/06/20 25 Active bisacodyL (DULCOLAX) 5 mg EC tablet Take 2 tablets by mouth right before beginning bowel prep. See instructions provided by the office 2 tablet 04/19/20 25 Active polyethylene glycol (Golytely) 236-22.74-6.74 -5.86 gram solution Take 4L by mouth once for one dose. May substitue any PEG. Starting at 6PM the night before your procedure drink 1 8oz glasses at your own pace until you complete half of the gallon. Finish 2nd half of the gallon 5 hours before your procedure. 4000 mL 04/19/20 25 Active estradioL (ESTRACE) 0.01 % (0.1 mg/gram) vaginal creamIndications: atrophic vaginitis associated with menopause Apply a pea-sized amount of cream with your fingertip to the vaginal canal every night for 2 weeks, then twice a week thereafter. 42.5 g 5 04/19/20 25 Active solifenacin (VESICARE) 5 mg tabletIndications :bladder hyperactivity Take 1 tablet (5 mg total) by mouth 1 (one) time each day. Swallow tablet whole; do not crush, chew, or split. 30 tablet 2 04/19/20 25 025 Active ciprofloxacin (CIPRO) 250 mg tabletIndications :bacterial urinary tract infection Take 1 tablet (250 mg total) by mouth 2 (two) times a day for 3 days. 6 tablet 04/21/20 25 025 Active Problems Problem Noted Date Diagnosed Date Vitiligo 04/19/2025 OAB (overactive bladder) 04/19/2025 Genitourinary syndrome of menopause 04/19/2025 Unsatisfactory cervical Papanicolaou smear 02/02 Overview (02/02/2025): [...] noted. Patient had lumbar spine MRI 05/27/2023 [facility], MRI lumbar spine September 2023 [facility], both show severe central stenosis L4-5 [...] she is doing after the injection. Sacroiliitis ([facility] V24) 06/10/2023 Overview (08/05/2024): Last Assessment & [...] underwent a left hip bursa injection at [facility] on 09/03/2023 without improvement. She has [...] Review of her lumbar spine MRI from [place] dated 05/27/2023 shows mild disc desiccation at [...] type diabetes mellitus with neurological manifestations, uncontrolled(250.62) ([facility]24, [facility] V28) 04/09/2022 Microalbuminuria 02/15/2020 HTN (hypertension) 01/10/2017 Hallux valgus, acquired, bilateral 06/19/2016 Onychomycosis 06/19/2016 Severe obesity (BMI 35.0-39. 9) with comorbidity ([facility], [facility] V28) 07/20/2012 Type 2 diabetes mellitus wit h diabetic neuropathy, without long-term current use of insulin ([facility], [facility] V28) 02/26/2010 Pancreas cyst 01/29/2008 Overview (08/05/2024): [...] Encounters Date Type Department Care Team Description 05/03/2025 7:54 AM EDT Anesthesia Event [facility] Endoscopy [address] [place] [address] Honorio Schwartz DO Chang, Daniel J, MD 05/03/2025 6:51 AM EDT - 05/03/2025 11:59 PM EDT Hospital Encounter [facility] Endoscopy [address] [place] [address] Valente Farr DO Johnson, Lorraine, CRNA Walsh, Michael, DO Colon cancer screening Discharge Disposition: Home or Self Care 04/21/2025 Telephone Urogynecology [address] [place] [address] Daisy Hsu RN 04/19/2025 11:00 AM EDT Office Visit Urogynecology [address], [place] [phone] Rose Petersen MD OAB (overactive bladder) (Primary Dx); Recurrent UTI; Vitiligo; Genitourinary syndrome of menopause; Myalgia, multiple sites; Acute cystitis without hematuria 04/19/2025 7:37 AM EDT - 04/19/2025 11:59 PM EDT Hospital Encounter Radiology Department - [address] [phone] Encounter for screening mammogram for breast cancer Discharge Disposition: Home or Self Care 04/06/2025 8:00 AM EDT Office Visit Adult Medicine [address] [phone] Aurelia Corley PA Primary hypertension (Primary Dx); Type 2 diabetes mellitus with diabetic neuropathy, without long-term current use of insulin (CMS/[facility] V24, CMS/[facility] V28); Spinal stenosis at L4-L5 level; S/P lumbar laminectomy; Trochanteric bursitis of left hip; Acute pain of right shoulder 03/01/2025 Telephone Internal Medicine - [address] [phone] Luisa Kaur, CHRIS 02/10/2025 Telephone Internal Medicine - [address] [address] Luisa Kaur, RN from Last 3 Months Immunizations Name Administration [...] COLONOSCOPY 2014 PROCEDURE: HISTORICAL COLONOSCOPY; COMMENT: normal GLAUCOMA SURGERY Medical History Medical History Date Comments Obesity 07/20/2012 DX:Obesity Diabetes mellitus type II DX:Suzy betes mellitus type II Onychomycosis 06/19/2016 DX:Onychomycosis Hallux valgus, acquired, bilateral 06/19/2016 DX:Hallux valgus, acquired, bilateral Weight loss DX:Weight loss Decreased appetite DX:Decreased appetite Bilateral upper abdominal discomfort DX:Bilateral upper abdominal discomfort Back pain DX:Back pain Abnormal Pap smear of cervix Hypertension Family History Medical History Relation Name Comments Diabetes Mother Breast cancer Neg Hx Colon cancer Neg Hx Ovarian cancer Neg Hx Relation Name Status Comments Brother 1 Alive Brother 2 suicide Daughter 1 Tram Alive Daughter 2 Yarely Alive Father bite infection in [place] Mother Alive Sister 1 Alive Sister 2 Alive Son Pieter Alive Social History Tobacco Use Types Packs/Day Years Used Date Smoking Tobacco: Never Smokeless Tobacco: Never Tobacco Cessation:Counseling Given: Not Answered Alcohol Use Standard Drinks/Week Comments No 0 (1 standard drink = 0.6 oz pur e alcohol) Interpersonal Safety Answer Date Record ed Physical Abuse 05/03/2025 Verbal Abuse 05/03/2025 Comments No Sex and Gender Information Value [...] Sign Reading Time Taken Comments Blood Pressure 141/75 05/03/2025 8:30 AM EDT Pulse 70 05/03/2025 8:30 AM EDT Temperature 35.8 C (96.5 F) 05/03/2025 8:10 AM EDT Respiratory Rate 19 05/03/2025 8:30 AM EDT Oxygen Saturation 100% 05/03/2025 8:30 AM EDT Inhaled Oxygen Concentration - - Weight 85.3 kg (188 lb) 05/03/2025 7:23 AM EDT Height 160 cm (5' 3 ) 05/03/2025 7:23 AM EDT Body Mass Index 33.3 05/03/2025 7:23 AM EDT Plan of Treatment Upcoming Encounters Date Type Department Care Team (Late st Contact Info) Description 07/08/2025 8:45 AM EDT Office Visit Endocrinology - [address] [phone] Cayla Mendoza PA [address] [place] [address] 07/22/2025 7:30 AM EDT Office Visit [facility] - [address] [phone] Josefina Burden MD [address] [place], [place] 07/26/2025 8:30 AM EDT Office Visit Urogynecology - [address] [phone] Rose Petersen MD [address] [facility] [address] [place] [address] Health Maintenance Due Date Last Done Comments Diabetes: Annual Foot Exam 12/17/1973 Pneumococcal Vaccine: 50+ Years (2 of 2 - PCV) 03/03/2015 03/03/2014 HIV Screening 09/28/2022 Social Influencers of Health Screening 09/28/2022 Zoster Vaccines (2 of 2) 11/25/2022 09/30/2022 RSV Immunization Adult Patients (1 - Risk 60-74 years 1-dose series) 2023 COVID-19 Vaccine ( season) 2024 09/30/2022, 10/02/2021, 01/24/2021 Depression Screening 10/20/2024 Diabetes: Annual Retina Eye Exam 01/26/2025 01/27/2024 Influenza Vaccine (#1) 2025 , 11/19/2023, 08/02/2017 Diabetes: Blood Sugar Control Test (HGBA1C) 07/02/2025 12/30/2024, 09/13/2024, 04/30/2024, Additional history exists Diabetes: Annual Urine Albumin-Creatinine Ratio (uACR) 12/30/2025 12/30/2024, 05/05/2023 Diabetes: Annual GFR (Glomerular Filtration Rate) 12/30/2025 12/30/2024, 11/17/2024, 11/14/2024, Additional history exists Hypertension/CHF/CAD Annual BMP Blood Test 12/30/2025 12/30/2024, 11/17/2024, 11/14/2024, Additional history exists Breast Cancer Screening 04/19/2027 04/19/20, 04/09/2024, 04/09/2024, Additional history exists Cholesterol Screening (Lipid Panel) 12/30/2029 12/30/2024, 01/30/2024 Cervical Cancer Screening: HPV 01/27/2030 01/27/2025, 2023 DTaP,Tdap,and Td Vaccines (3 - Td or Tdap) 03/04/2033 03/04/2023, 09/27/2011 Colorectal Cancer Screening: Colonoscopy 05/03/2035 05/03/2025, 02/06/2015 Hepatitis C Screening Completed 07/13/2013 HIB Vaccines Aged Out No longer eligi [...] Procedure Name Priority Date/Time Associated Diagnosis Comments COLONOSCOPY Routine 05/03/2025 8:09 AM EDT Colon cancer screening TISSUE EXAM Routine 05/03/2025 8:05 AM EDT Colon cancer screening CULTURE URINE Routine 04/19/2025 11:36 AM EDT Recurrent UTI POC URINE AUTO W/O MICRO Routine 04/19/2025 11:35 AM EDT Recurrent UTI MG MAMMO DIGITAL SCREENING W BRENNAN BILAT Routine 04/19/2025 7:49 AM EDT Encounter for screening mammogram for breast cancer HPV WITH REFLEX GENOTYPE Routine 01/27/2025 3:14 PM EDT Screening for cervical cancer MICROALBUMIN CREATININE URINE RATIO Routine 12/30/2024 10:08 AM EDT Type 2 diabetes mellitus with diabetic neuropathy, without long-term current use of insulin ([facility]/HCC V24, CMS/[facility] V28) COMPREHENSIVE METABOLIC PANEL Routine 12/30/2024 10:08 AM EDT Type 2 diabetes mellitus with diabetic neuropathy, without long-term current use of insulin (CMS/HCC V24, CMS/[facility] V28) HEMOGLOBIN A1C Routine 12/30/2024 10:08 AM EDT Type 2 diabetes mellitus with diabetic neuropathy, without long-term current use of insulin (CMS/[facility] V24, CMS/[facility] V28) LIPID PANEL WITH REFLEX TO DIRECT LDL Routine 12/30/2024 10:08 AM EDT Type 2 diabetes mellitus with diabetic neuropathy, without long-term current use of insulin ([facility] V24, [facility] V28) HEPATITIS C SCREENING Routine 07/13/2013 from Last 3 Months or Most Recently Relevant to Health Maintenance Results * COLONOSCOPY Anesthesia - MAC; [facility] ENDOSCOPY (05/03/2025 8:09 AM EDT) Anatomical Region Laterality Modality Endoscopy 05/03/2025 7:55 AM EDT Impressions 05/03/2025 8:10 AM EDT - Hemorrhoids found on perianal exam. - One 7 mm polyp in the ascending colon, removed with a cold snare. Resected and retrieved. - The entire examined colon is normal on direct and retroflexion views. Recommendation: - - Discharge patient to home. - High fiber diet. - Continue present medications. - Await pathology results. - Repeat colonoscopy for surveillance based on pathology results. Narrative 05/03/2025 8:10 AM EDT [facility] GI Patient Name: Alfonzo Donaldson Procedure Date: 05/03/2025 7:55 AM Date of : 1965 Age: 59 Gender: Female Note Status: Finalized Attending MD: Valente Farr DO, [id number] Procedure Date No Time: 05/03/2025 Procedure: Colonoscopy Indications: Screening for colorectal malignant neoplasm Providers: Valente Farr DO Referring MD: Josefina Burden MD Medicines: Monitored Anesthesia Care Complications: No immediate complications. Estimated blood loss: Minimal. Estimated Blood Loss: Estimated blood loss was minimal. Procedure: Pre-Anesthesia Assessment: - - Prior to the procedure, a History and Physical was performed, and patient medications and allergies were reviewed. The patient is competent. The risks and benefits of the procedure and the sedation options and risks were discussed with the patient. All questions were answered and informed consent was obtained. Patient identification and proposed procedure were verified by the physician, the nurse, the anesthesiologist, the electrical project manager and the pm technician in the pre-procedure area in the endoscopy suite. Mental Status Examination: alert and oriented. Airway Examination: normal oropharyngeal airway and neck mobility. Respiratory Examination: clear to auscultation. CV Examination: normal. Prophylactic Antibiotics: The patient does not require prophylactic antibiotics. Prior Anticoagulants: The patient has taken no anticoagulant or antiplatelet agents. ASA Grade Assessment: II - A patient with mild systemic disease. After reviewing the risks and benefits, the patient was deemed in satisfactory condition to undergo the procedure. The anesthesia plan was to use monitored anesthesia care (MAC). Immediately prior to administration of medications, the patient was re-assessed for adequacy to receive sedatives. The heart rate, respiratory rate, oxygen saturations, blood pressure, adequacy of pulmonary ventilation, and response to care were monitored throughout the procedure. The physical status of the patient was re-assessed after the procedure. After I obtained informed consent, the scope was passed under direct vision. Throughout the procedure, the patient's blood pressure, pulse, and oxygen saturations were monitored continuously. The Colonoscope was introduced through the anus and advanced to the cecum, identified by appendiceal orifice and ileocecal valve. The colonoscopy was performed without difficulty. The patient tolerated the procedure well. The quality of the bowel preparation was good. Findings: Hemorrhoids were found on perianal exam. A 7 mm polyp was found in the ascending colon. The polyp was sessile. The polyp was removed with a cold snare. Resection and retrieval were complete. Verification of patient identification for the specimen was done. Estimated blood loss was minimal. The entire examined colon appeared normal on direct and retroflexion views. Procedure Code(s): --- Professional --- 62023, Colonoscopy, flexible; with removal of tumor(s), polyp(s), or other lesion(s) by snare technique Diagnosis Code(s): --- Professional --- Z12.11, Encounter for screening for malignant neoplasm of colon K64.9, Unspecified hemorrhoids D12.2, Benign neoplasm of ascending colon CPT copyright 2020 [employer]. All rights reserved. The codes documented in this report are preliminary and upon sales correspondence clerk review may be revised to meet current compliance requirements. VALENTE Farr DO 05/03/2025 8:10:16 AM This report has been signed electronically.Valente Farr DO Number of Addenda: 0 Note Initiated On: 05/03/2025 7:55 AM Scope Withdrawal Time: 0 hours 7 minutes 39 seconds Scope In: 7:58:31 AM Scope Out: 8:09:08 AM Endoscopy Department at [facility] - [address] [place] [phone] Procedure Note Valente Farr DO - 05/03/2025 [facility] GI Patient Name: Alfonzo Donaldson Procedure Date: 05/03/2025 7:55 AM Date of : 1965 Age: 59 Gender: Female Note Status: Finalized Attending MD: Valente Farr DO, [id number] Procedure Date No Time: 05/03/2025 Procedure: Colonoscopy Indications: Screening for colorectal malignant neoplasm Providers: Valente Farr DO Referring MD: Josefina Burden MD Medicines: Monitored Anesthesia Care Complications: No immediate complications. Estimated blood loss: Minimal. Estimated Blood Loss: Estimated blood loss was minimal. Procedure: Pre-Anesthesia Assessment: - - Prior to the procedure, a History and Physicalwas performed, and patient medications and allergieswere reviewed. The patient is competent. The risks and benefits of the procedure and the sedation optionsand risks were discussed with the patient. Allquestions were answered and informed consent was obtained. Patient identification and proposed procedure were verified by the physician, the nurse, the anesthesiologist, the electrical project manager and thetechnician in the pre-procedure area in the endoscopy suite. Mental Status Examination: alert and oriented.Airway Examination: normal oropharyngeal airway and neck mobility. Respiratory Examination: clear to auscultation. CV Examination: normal. Prophylactic Antibiotics: The patient does not requireprophylactic antibiotics. Prior Anticoagulants: The patient has taken no anticoagulant or antiplatelet agents. ASA Grade Assessment: II - A patient with mild systemic disease. After reviewing the risks and benefits,the patient was deemed in satisfactory condition to undergo the procedure. The anesthesia plan was touse monitored anesthesia care (MAC). Immediately priorto administration of medications, the patient was re-assessed for adequacy to receive sedatives. The heart rate, respiratory rate, oxygen saturations, blood pressure, adequacy of pulmonary ventilation,and response to care were monitored throughout the procedure. The physical status of the patient was re-assessed after the procedure. After I obtained informed consent, the scope was passed under direct vision. Throughout theprocedure, the patient's blood pressure, pulse, and oxygen saturations were monitored continuously. The Colonoscope was introduced through the anus and advanced to the cecum, identified by appendiceal orifice and ileocecal valve. The colonoscopy was performed without difficulty. The patient tolerated the procedure well. The quality of the bowel preparation was good. Findings: Hemorrhoids were found on perianal exam. A 7 mm polyp was found in the ascending colon. The polyp was sessile. The polyp was removed with acold snare. Resection and retrieval were complete. Verification of patient identification for the specimen was done. Estimated blood loss wasminimal. The entire examined colon appeared normal on direct and retroflexion views. Procedure Code(s): --- Professional --- 51986, Colonoscopy, flexible; with removal of tumor(s), polyp(s), or other lesion(s) by snare technique Diagnosis Code(s): --- Professional --- Z12.11, Encounter for screening for malignantneoplasm of colon K64.9, Unspecified hemorrhoids D12.2, Benign neoplasm of ascending colon CPT copyright 2020 [employer]. All rights reserved. The codes documented in this report are preliminary and upon sales correspondence clerk reviewmay be revised to meet current compliance requirements. VALENTE Farr DO 05/03/2025 8:10:16 AM This report has been signed electronically.Valente Farr DO Number of Addenda: 0 Note Initiated On: 05/03/2025 7:55 AM Scope Withdrawal Time: 0 hours 7 minutes 39 seconds Scope In: 7:58:31 AM Scope Out: 8:09:08 AM Endoscopy Department at [facility] - [address] [place] [phone] IMPRESSION: - Hemorrhoids found on perianal exam. - One 7 mm polyp in the ascending colon, removedwith a cold snare. Resected and retrieved. - The entire examined colon is normal on direct and retroflexion views. Recommendation: - - Discharge patient to home. - High fiber diet. - Continue present medications. - Await pathology results. - Repeat colonoscopy for surveillance based on pathology results. us Valente Farr DO GI~PROCEDURE ORDERABLES Final Re sult * Tissue exam (05/03/2025 8:05 AM EDT) Final Diagnosis Ascending colon polyp: Tubular adenoma 05/04/2025 9:26 AM EDT [facility] Gross Description A. Large Intestine, Right/Ascend ing Colon, polyp x1: Labeled polyp x 1 ascend colon . Received in formalin is a 0.2 cm in greatest diameter soft, orozco polypoid tissue fragment, which is wrapped in paper and submitted in toto in one cassette, one piece, multiple levels on one slide. 05/04/2025 9:26 AM EDT [facility] Disclaimer Unless otherwise specified, all tissue is 10% NB formalin fixed and paraffin embedded. 05/04/2025 9:26 AM EDT [facility] Tissue Ascending colon structure / Unknown 05/03/2025 8:05 AM EDT 05/03/2025 9:40 AM EDT us Valente Farr DO LAB PATHOLOGY ORDERABLES Final R esult [facility] [address] [place] [address], * (ABNORMAL) Culture urine (04/19/2025 11:36 AM EDT) Culture, Urine 10,000-49,000 CFU/mL Escherichia coli(A) JENNIFER 04/21/2025 11:07 AM EDT [facility] Urine Urinary bladder structure / Unknown Non-blood Collection / Unknown 04/19/2025 11:36 AM EDT 04/19/2025 11:36 AM EDT Narrative Organism Antibiotic Method Susceptibility Escherichia coli Amoxicillin/Clavulanate JENNIFER <=2 ug/ml: Susceptible Escherichia coli Ampicillin/Sulbactam JENNIFER <=2 ug/ml: Susceptible Escherichia coli Piperacillin/Tazobactam JENNIFER <=4 ug/ml: Susceptible Escherichia coli Cefazolin (Urine) JENNIFER <=1 ug/ml: Susceptible Escherichia coli Cefoxitin JENNIFER <=4 [...] Escherichia coli Trimethoprim/Sulfamethoxazole JENNIFER <=20 ug/ml: Susceptible Rose Petersen MD LAB MICROBIOLOGY - [facility] Final Result [facility] [address] [place] [address], [place] [phone] * POC Urine Auto W/O Micro (04/19/2025 11:35 AM EDT) Glucose UA POC Negative Negative, Trace mg/dL Bilirubin UA POC Negative Negative Ketones UA POC Negative Negative Specific Allen UA POC 1.020 Blood UA POC Negative Negative PH UA POC 6.0 Protein UA POC Negative Negative mg/dL Urobilinogen UA POC 0.2 E.U./dL 0.2 E.U./dL, 1.0 E.U./dL, 8 , Unable to interpret due to interfering substances mg/dL Nitrite UA POC Negative Negative Leukocytes UA POC Negative Negative Urine Urine specimen obtained by clean catch procedure / Unknown 04/19/2025 11:35 AM EDT us Rose Petersen MD POINT OF CARE TEST ENTER/EDIT O RDERABLES Final Result * MG Mammo Digital Screening w Brennan bilat (04/19/2025 7:49 AM EDT) Anatomical Region Laterality Modality Breast Bilateral Mammography 04/20/2025 11:4 8 AM EDT Impressions 04/20/2025 1:22 PM EDT Benign. BI-RADS CATEGORY: 1 - NEGATIVE RECOMMENDATION: Screening bilateral mammogram is recommended in 1 year. Mammo Location: [facility], [address] [place] [address], [id number], . -------- FINAL REPORT -------- Dictated By: Cheryl Logan Dictated Date: 04/20/2025 11:48 ET Assigned Physician: Cheryl Logan Reviewed and Electronically Signed By: Cheryl Logan Signed Date: 04/20/2025 13:22 ET Workstation ID: [id number] Transcribed By: Self Edit Transcribed Date: 04/20/2025 11:48 ET Narrative 04/20/2025 1:22 PM EDT CLINICAL: 59 years old, Female, routine annual exam. COMPARISON: Mammograms dating back to 03/21/2021 with most recent of 04/09/2024. TECHNIQUE: Bilateral MLO and CC views were obtained digitally with 3-D mammogram (digital breast tomosynthesis). Computer-aided detection was utilized in evaluation of this exam (CAD). FINDINGS: There is no evidence of suspicious mass or architectural distortion. No worrisome calcifications are evident. There has been no significant change from prior exam(s). BREAST DENSITY: B - There are scattered areas of fibroglandular density. Procedure Note Cheryl Logan MD - 04/20/2025 CLINICAL: 59 years old, Female, routine annual exam. COMPARISON: Mammograms dating back to 03/21/2021 with most recent of04/09/2024. TECHNIQUE: Bilateral MLO and CC views were obtained digitally with 3-Dmammogram (digital breast tomosynthesis). Computer-aided detection wasutilized in evaluation of this exam (CAD). FINDINGS: There is no evidence of suspicious mass or architectural distortion. Noworrisome calcifications are evident. There has been no significantchange from prior exam(s). BREAST DENSITY: B - There are scattered areas of fibroglandular density. IMPRESSION: Benign. BI-RADS CATEGORY: 1 - NEGATIVE RECOMMENDATION: Screening bilateral mammogram is recommended in 1 year. Mammo Location: [facility], [address] [place] [address], [id number], . -------- FINAL REPORT -------- Dictated By: Cheryl Logan Dictated Date: 04/20/2025 11:48 ET Assigned Physician: Cheryl Logan Reviewed and Electronically Signed By: Cheryl Logan Signed Date: 04/20/2025 13:22 ET Workstation ID: [id number] Transcribed By: Self Edit Transcribed Date: 04/20/2025 11:48 ET us Josefina Burden MD IMG BI PROCEDURES Final Result * HPV with reflex genotype (01/27/2025 3:14 PM EDT) [facility] HPV Negative Negative LAB MICROBIOLOGY METHOD 01/28/2025 12:59 PM EDT [facility] Brushing/Spatula Cervix uteri structure / Unknown 01/27/2025 3:14 PM EDT 01/28/2025 6:12 AM EDT us Kim RICARDO LAB MOLECULAR DIAGNOSTICS O RDERABLES Final Result [facility] [address] [place] [address], [place] [phone] * Lipid panel with reflex to direct LDL (12/30/2024 10:08 AM EDT) [facility] Cholesterol 122 0 - 200 mg/dL LAB CHEMISTRY METHOD 12/30/2024 12:51 PM EDT [facility] Triglycerides 71 0 - 150 mg/dL LAB CHEMISTRY METHOD 12/30/2024 12:51 PM EDT [facility] HDL 69 >=40 mg/dL LAB CHEMISTRY METHOD 12/30/2024 12:51 PM EDT [facility] LDL Calculated 39 0 - 100 mg/dL LAB CHEMISTRY METHOD 12/30/2024 12:51 PM EDT [facility] VLDL Cholesterol Yordan 14.2 mg/dL LAB CHEMISTRY METHOD 12/30/2024 12:51 PM EDT [facility] Non HDL Chol. (LDL+VLDL) 53 <145 mg/dL LAB CHEMISTRY METHOD 12/30/2024 12:51 PM EDT [facility] Chol/HDL Ratio 1.8 0.0 - 4.4 LAB CHEMISTRY METHOD 12/30/2024 12:51 PM EDT [facility] Blood Venous blood specimen / Unknown Venipuncture / Unknown 12/30/2024 10:08 AM EDT 12/30/2024 10:08 AM EDT us Josefina Burden MD LAB BLOOD ORDERABLES Final Resul t Performing Organization Address City/[facility]/ZIP Co de Phone Number [facility] [address] [place] [address], [place] [phone] * Microalbumin creatinine urine ratio (12/30/2024 10:08 AM EDT) Creatinine, Urine 143.0 mg/dL LAB CHEMISTRY METHOD 12/30/2024 1:06 PM EDT [facility] Microalb, Ur 11.3 0.0 - 29.0 mg/L LAB CHEMISTRY METHOD 12/30/2024 1:06 PM EDT [facility] Microalb/Creat Ratio 8 <30 mg/g creat LAB CHEMISTRY METHOD 12/30/2024 1:06 PM EDT [facility] Urine Urine specimen obtained by clean catch procedure / Unknown Non-blood Collection / Unknown 12/30/2024 10:08 AM EDT 12/30/2024 10:08 AM EDT us Josefina Burden MD LAB URINE ORDERABLES Final Resul t Performing Organization Address [facility]/ZIP Co de Phone Number [facility] [address] [place] [address], [place] [phone] * Hemoglobin A1c (12/30/2024 10:08 AM EDT) [facility] Hemoglobin A1C 6.3 <6.5 % LAB CHEMISTRY METHOD 12/30/2024 2:59 PM [facility] Mean Bld Glu Estim. 134 mg/dL LAB CHEMISTRY METHOD 12/30/2024 2:59 PM [facility] Blood Venous blood specimen / Unknown Venipuncture / Unknown 12/30/2024 10:08 AM EDT 12/30/2024 10:08 AM EDT us Josefina Burden MD LAB BLOOD ORDERABLES Final Resul t [facility] [address] [place] [address], * (ABNORMAL) Comprehensive metabolic panel (12/30/2024 10:08 AM EDT) [facility] Sodium 139 133 - 145 mmol/L LAB CHEMISTRY METHOD 12/30/2024 12:51 PM [facility] Potassium 4.4 3.5 - 5.5 mmol/L LAB CHEMISTRY METHOD 12/30/2024 12:51 PM [facility] Chloride 105 96 - 110 mmol/L LAB CHEMISTRY METHOD 12/30/2024 12:51 PM [facility] CO2 28 21 - 32 mmol/L LAB CHEMISTRY METHOD 12/30/2024 12:51 PM [facility] Anion Gap 6 3 - 11 LAB CHEMISTRY METHOD 12/30/2024 12:51 PM [facility] Glucose 117(H) 70 - 100 mg/dL LAB CHEMISTRY METHOD 12/30/2024 12:51 PM [facility] BUN 26(H) 5 - 25 mg/dL LAB CHEMISTRY METHOD 12/30/2024 12:51 PM [facility] Creatinine 0.96 0.50 - 1.10 mg/dL LAB CHEMISTRY METHOD 12/30/2024 12:51 PM [facility] eGFR 67 >=60 mL/min/1. 73m2 LAB CHEMISTRY METHOD 12/30/2024 12:51 PM [facility] Comment:Calculation based on the Chronic Kidney Disease Epidemiology Collaboration (CKD-EPI) equation refit without adjustment for race. BUN/Creatinine Ratio 27.1 LAB CHEMISTRY METHOD 12/30/2024 12:51 PM [facility] Calcium 9.2 8.5 - 10.5 mg/dL LAB CHEMISTRY METHOD 12/30/2024 12:51 PM [facility] AST (SGOT) 25 10 - 42 unit/L LAB CHEMISTRY METHOD 12/30/2024 12:51 PM [facility] ALT (SGPT) 32 10 - 60 unit/L LAB CHEMISTRY METHOD 12/30/2024 12:51 PM [facility] Alkaline Phosphatase 82 42 - 121 unit/L LAB CHEMISTRY METHOD 12/30/2024 12:51 PM [facility] Total Protein 7.2 6.0 - 8.0 g/dL LAB CHEMISTRY METHOD 12/30/2024 12:51 PM [facility] Albumin 3.9 3.2 - 5.0 g/dL LAB CHEMISTRY METHOD 12/30/2024 12:51 PM [facility] Total Bilirubin 0.4 0.0 - 1.4 mg/dL LAB CHEMISTRY METHOD 12/30/2024 12:51 PM [facility] Blood Venous blood specimen / Unknown Venipuncture / Unknown 12/30/2024 10:08 AM EDT 12/30/2024 10:08 AM EDT us Josefina Burden MD LAB BLOOD ORDERABLES Final Resul t [facility] [address] [place] [address], * Hepatitis C Screening (07/13/2013) Hepatitis C Screening abstracted us Historical Provider MD HEALTH MAINTENANCE Final Result from Last 3 Months or Most Recently Relevant to Health Maintenance Insurance [facility] [employer] Advance Directives * Full Code - [...] currently active code status orders. Care Teams Overhead Door Technician Relationship Specialty Start Date End Date Josefina Burden MD [address] [place] [phone] PCP - General Internal Medicine 12/18/22
--- OUTSIDE RECORDS SUMMARY | 2025-05-11 14:04 | XMS_ITS ---
[facility] Name [facility] Organization Unknown History of Medication Use Medication Directions Dispensed Refills Start Date End Date Stat ciprofloxacin (CIPRO) 250 mg tablet Take 1 tablet (250 mg total) by mouth 2 (two) times a day for 3 days. 04/21/2025 active bisacodyL (DULCOLAX) 5 mg EC tablet Take 2 tablets by mouth right before beginning bowel prep. See instructions provided by the office 04/19/2025 active estradioL (ESTRACE) 0.01 % (0.1 mg/gram) vaginal cream Apply a pea-sized amount of cream with your fingertip to the vaginal canal every night for 2 weeks, then twice a week thereafter. 04/19/2025 active polyethylene glycol (Golytely) 236-22.74-6.74 -5.86 gram solution Take 4L by mouth once for one dose. May substitue any PEG. Starting at 6PM the night before your procedure drink 1 8oz glasses at your own pace until you complete half of the gallon. Finish 2nd half of the gallon 5 hours before your procedure. 04/19/2025 active solifenacin (VESICARE) 5 mg tablet Take 1 tablet (5 mg total) by mouth 1 (one) time each day. Swallow tablet whole; do not crush, chew, or split. 04/19/2025 active cyclobenzaprine (FLEXERIL) 10 mg tablet Take 1 tablet (10 mg total) by mouth at bedtime as needed for muscle spasms. 04/06/2025 active diclofenac (VOLTAREN) 1 % topical gel Apply 4 g topically 2 (two) times a day. 04/06/2025 active metFORMIN (GLUCOPHAGE) 1,000 mg tablet TAKE ONE TABLET BY MOUTH TWICE A DAY WITH MEALS 03/30/2025 active alcohol swabs pads, medicated Apply topically 4 (four) times a day. 02/01/2025 active cholecalciferol (VITAMIN D-3) 50 mcg (2,000 unit) capsule Take 1 capsule (2,000 Units total) by mouth 1 (one) time each day. 02/01/2025 active famotidine (PEPCID) 20 mg tablet Take 1 tablet (20 mg total) by mouth 2 (two) times a day. 02/01/2025 active gabapentin (NEURONTIN) 300 mg capsule Take 1 capsule (300 mg total) by mouth 3 (three) times a day. 02/01/2025 active hydrOXYzine HCL (ATARAX) 10 mg tablet Take 1 tablet (10 mg total) by mouth every 8 (eight) hours if needed for itching. 02/01/2025 active loratadine (CLARITIN) 10 mg tablet Take 1 tablet (10 mg total) by mouth 1 (one) time each day. 02/01/2025 active losartan (COZAAR) 25 mg tablet Take 1 tablet (25 mg total) by mouth 1 (one) time each day. 02/01/2025 active meclizine (ANTIVERT) 25 mg tablet Take 1 tablet (25 mg total) by mouth 3 (three) times a day if needed for dizziness. 02/01/2025 active insulin glargine (LANTUS SoloStar) 100 unit/mL (3 mL) injection pen Inject 8 Units under the skin at bedtime. 01/05/2025 active docusate sodium (COLACE) 100 mg capsule 12/23/2024 active oxyCODONE (ROXICODONE) 5 mg immediate release tablet 12/23/2024 active glucagon (Gvoke HypoPen 2-Pack) 0.5 mg/0.1 mL auto-injector Inject 0.5 mg under the skin if needed (low blood sugar). 10/05/2024 active insulin lispro (HumaLOG KwikPen Insulin) 100 unit/mL injection pen Inject 3 times a day with meals per scale 200 to 249 2 units ;250 to 299 4 units; 300 to 349 6 units; 350 to 400 8 units; Above 400 Call MD 10/05/2024 active latanoprost (XALATAN) 0.005 % ophthalmic solution Administer 1 drop into both eyes at bedtime. 08/11/2024 active IBU 600 mg tablet Take 1 tablet (600 mg total) by mouth every 6 (six) hours. 04/17/2024 active lidocaine (LIDODERM) 5 % patch APPLY 1 PATCH ONCE DAILY 07/27/2023 active blood sugar diagnostic (FreeStyle Lite Strips) test strip Used to test blood sugar three times a day. 05/05/2023 active Problems Problem Status Onset Date Problem Type Date of Resoluti on Source Spinal stenosis at L4-L5 level active 2023-06-04 ProblemAct [facility] Spondylolisthesis at L4-L5 level active 2023-08-20 ProblemAct [facility] Onychomycosis active 2016-06-19 ProblemAct [facility]T HS[facility]AN Type II or unspecified type diabetes mellitus with neurological manifestations, uncontrolled(250.62) ([facility] V24, [facility] V28) active 2022-04-09 ProblemAct [facility] Severe obesity (BMI 35.0-39.9) with comorbidity ([facility] V24, [facility] V28) active 2012-07-20 ProblemAct [facility] Left-sided low back pain with left-sided sciatica active 2023-06-04 ProblemAct [facility]_ [facility] Genitourinary syndrome of menopause active 2025-04-19 ProblemAct [facility] Trochanteric bursitis of left hip active 2023-08-20 ProblemAct [facility] Pneumonia due to infectious organism active 2024-11-14 ProblemAct [facility] Vitiligo active 2025-04-19 ProblemAct [facility] Microalbuminuria active 2020-02-15 ProblemAct C T_THSFRAN Hallux valgus, acquired, bilateral active 2016-06-19 ProblemAct [facility] Unsatisfactory cervical Papanicolaou smear active 2025-02-02 ProblemAct [facility]_THSFRA N Type 2 diabetes mellitus with diabetic neuropathy, without long-term current use of insulin ([facility] V24, [facility] V28) active 2010-02-26 ProblemAct [facility] Pancreas cyst active 2008-01-29 ProblemAct [facility] HS[facility] Sacroiliitis ([facility] V24) active 2023-06-10 ProblemAct [facility] OAB (overactive bladder) active 2025-04-19 ProblemAct [facility] HTN (hypertension) active 2017-01-10 ProblemAct [facility] Immunizations Vaccine Date Source Lot Number Status Influenza, Unspecified 08/03/2024 CTLISANDRO co mpleted Influenza Quadravalent, MDCK , 0.5ml, preservative free (Flucelvax) 6mo and older 11/19/2023 DENNIS [id number] completed Tdap Tetanus diptheria acell ular pertussis (Boostrix; Adacel) 7yo and older 03/04/2023 CTLISANDRO [id number] completed Moderna Covid-19 Bivalent, O riginal + Ba.1 (Non-US Tradename Spikevax Bivalent) 09/30/2022 CTLISANDRO [id number] completed Zoster recombinant (Shingrix ) 19yo and older 09/30/2022 DENNIS [id number] completed Pneumococcal polysaccharide 23 valent (Pneumovax 23) 2yo and older 03/03/2014 CTLISANDRO [id number] com pleted Tdap Tetanus diptheria acell ular pertussis (Boostrix; Adacel) 7yo and older 09/27/2011 CTLISANDRO [id number] completed Care Team Organization Name Specialty Phone Email Start Date End Da te [facility] 08/19/2023 024
== END 2025-05-11 13:31 | disposition home or self-care (01) ==
LOC: HO.MRI 13:30
PROVIDERS: Visit Provider Physician Assistant
DX: M54.16 Radiculopathy, lumbar region (principal)
CPT/HCPCS: 72158; A9585

== ENCOUNTER → 2025-05-11 13:36 | Outpatient (BNV) | payer OTHER, SELFPAY | PROVIDERS: Visit Provider Radiology Diagnostic Radiology | DX: M51.26 Other intervertebral disc displacement, lumbar region (principal) | CPT/HCPCS: 72158 ==